=== PATIENT | female | born 1945 | race Caucasian/White ===

== ENCOUNTER 2017-08-31 09:13 | Outpatient (CLI) | payer MEDICARE ==
--- NOTE | 2017-08-31 13:12 | CT ---
CT CHEST AND ABDOMEN AND PELVIS WITH CONTRAST: HISTORY: Stage IV metastatic breast cancer. Post chemo and radiation over one year ago. Exam was performed for followup. COMPARISON: Outside CT from [place], dated 11/17/2016. TECHNIQUE: Multiple axial tomograms were obtained through the chest, abdomen, and pelvis with IV enhancement an d oral contrast. FINDINGS: CHEST: Apparently calcified granuloma in the left anterior lung, measuring in the 3 to 4 mm range, is stable. There is also a tiny calcified granuloma, measuring 3 mm, in the right lung base, which is stable. There continues to be moderate sized right pleural effusion, some of which appears mildly loculated. This is unchanged in appearance. There is some associated with basilar atelectasis. There is a m ass like area of lung parenchyma adjacent to this pleural fluid, which measures up to 4 cm in diamet er. This is unchanged and most likely represents a focal area of rounded atelectasis. There is ass ociated stranding in the right lung base, which is stable. The sclerotic lesion in the sternum is unchanged in size and appearance. The soft tissue mass in the left breast is also unchanged in size and appearance. No evidence of ax illary adenopathy. No evidence of mediastinal adenopathy. There is a right Mediport type catheter, which appears in adequate position. ABDOMEN AND PELVIS: The liver, spleen, and pancreas appear unremarkable. There continues to be sue dence of several peripherally calcified gallstones seen in a mildly contracted gallbladder, which is unchanged in appearance. The adrenal glands are normal. The right kidney is somewhat ectopic with inferior position. The right kidney also shows pelvocalie ctasis, which is previously described. This does appear stable. The right ureter is of normal evelina cindy. The left kidney also shows evidence of mild hydronephrosis involving the left renal pelvis. This is also a stable finding. The left ureter is normal. The urinary bladder is mildly contracted and is unremarkable. There is thinning of the right renal cortex, which is stable. The aorta shows atherosclerotic change. Normal caliber. No adenopathy identified. Bowel loops are unremarkable. Bone windows again show a subtle sclerotic lesion in the right femoral neck, which was described pre viously. This is stable. Deformity of the superior endplate of L3 with some sclerosis at the left aspect of this vertebral body is stable. This may be due to endplate deformity rather than metastat ic disease. A tiny focal sclerotic lesion in the L4 vertebra is stable, as is a tiny focus of scler osis in the mid sacrum. Images through the pelvis show an unremarkable appearing uterus and adnexa. IMPRESSION: 1. Moderate right pleural effusion with some suggestion of loculation is again seen and is essential ly unchanged. There is a mass like area of parenchymal opacity in the right lung base which is unch anged in size and probably represents focal rounded atelectasis. 2. Fatty granuloma are unchanged. 3. Sclerotic lesion in the sternum, consistent with bony metastasis, is unchanged. 4. Left breast mass, density is unchanged. 5. Cholelithiasis again noted. 6. Both kidneys again show pelvocaliectasis with suggestion of mild ureteropelvic junction obstruct ion bilaterally. There is mild ectopia of the right kidney. These renal findings are stable. 7. Scattered sclerotic lesions in the osseous structures, as described above, are stable. Prominen t degenerative changes at the right hip again noted. 8. No evidence of significant interval change. POS: ROBER
[2017-08-31] MEDS ORDERED: Iopamidol 370 76% 100 ML VIAL ONE (14:39)
== END 2017-08-31 09:14 | disposition home or self-care (01) ==
LOC: CT 09:13
PROVIDERS: ATTEND Internal Medicine Hematology & Oncology
DX: C50.412 Malignant neoplasm of upper-outer quadrant of left female breast (principal); E03.8 Other specified hypothyroidism; J90 Pleural effusion, not elsewhere classified; N63.20 Unspecified lump in the left breast, unspecified quadrant; K80.20 Calculus of gallbladder without cholecystitis without obstruction; N13.30 Unspecified hydronephrosis; Q63.2 Ectopic kidney; M89.28 Other disorders of bone development and growth, other site
CPT/HCPCS: 71260; 74177

== ENCOUNTER 2018-01-18 07:30 | Outpatient (CLI) | payer MEDICARE ==
--- NOTE | 2018-01-18 11:49 | CT ---
CT OF CHEST AND ABDOMEN AND PELVIS PERFORMED WITHOUT CONTRAST ENHANCEMENT: Date: 01/18/18 HISTORY: Breast cancer. Follow-up. COMPARISON: 08/31/17 study, as well as an 09/29/15 exam. FINDINGS: There has been development of some parenchymal changes within the lingula, which could represent mike y infiltrate. These are new as compared to the prior exam. There is an area of mass-like consolidatio n measuring 4.2 cm in size in the right lower lobe. This is stable as compared to the most recent 201 7 study. It could represent an area of rounded atelectasis. There is moderate right pleural effusion which is felt to be stable. Small, subcentimeter, mediastinal nodes are unremarkable. Hilar regions are difficult to assess due t o lack of contrast. Fairly extensive coronary artery calcifications are seen. CT of abdomen was performed without contrast enhancement. Gallstones are noted. The liver, spleen, an d pancreas regions appear unremarkable. Right and left adrenal glands are normal in appearance. The right kidney once again has an unusual mo re vertical orientation. There is dilatation to both collecting systems. In reviewing the 2015 study, the dilatation, particularly on the right side, appears more prominent, and there is some increasing cortical thinning. Changes are probably related to UPJ type obstructions. The ureters are nondilated . There is no significant periaortic or mesenteric adenopathy. CT of pelvis was performed without contrast enhancement. There is no evidence of any significant germain opathy, mass, or free fluid. Review of osseous structures shows some sclerotic bony change within the sternum, similar to the prev ious examination. Also, a sclerotic area within the right hip and intertrochanteric region, as well a s a stable appearance of what appears to be a sclerotic appearing area involving the L3 vertebral bod y with what appears to almost be Schmorl's node type changes involving the superior end plate. A smal l sclerotic focus at the L5 vertebral body is also stable. No new lesions are seen. Marked arthritic changes of the right hip are present. IMPRESSION: 1. Stable area of mass-like consolidation of the right lower lobe with associated effusion. This cou ld represent rounded atelectasis. 2. Development of some parenchymal change within the left upper lobe and left mid lung field in the lingular region. This could represent some atelectasis or some minimal infiltrate. It is new as manuel red to the prior study. 3. Findings suggest bilateral UPJ type obstruction with prominent collecting system bilaterally. The changes on the right appear more pronounced, particularly when comparing to the 2015 study, with sang e increased cortical thinning. 4. Stable bony changes. 5. Gallstones. POS: ROBER
== END 2018-01-18 07:31 | disposition home or self-care (01) ==
LOC: CT 07:30
PROVIDERS: ATTEND Internal Medicine Hematology & Oncology
DX: C50.919 Malignant neoplasm of unspecified site of unspecified female breast (principal); C78.01 Secondary malignant neoplasm of right lung; C79.51 Secondary malignant neoplasm of bone; R91.8 Other nonspecific abnormal finding of lung field; K80.80 Other cholelithiasis without obstruction
CPT/HCPCS: 71250; 74177; 82565

== ENCOUNTER 2018-08-15 08:43 | Outpatient (CLI) | payer MEDICARE ==
--- NOTE | 2018-08-15 10:55 | CT ---
CT OF CHEST PERFORMED WITHOUT CONTRAST ENHANCEMENT CT OF ABDOMEN AND PELVIS PERFORMED WITHOUT CONTRAST ENHANCEMENT: History: Left breast cancer. Follow up. Comparison: 01-18-18 FINDINGS: No IV contrast was used due to patient's low GFR. There is a persistent rounded area of mass like consolidation seen in the right lower lobe with assoc iated effusion. These changes appear stable. The left upper lobe parenchymal changes noted on the prior examination have resolved. No significant mediastinal, hilar, or axillary adenopathy is appreciated. Stable changes of the left breast are present. CT OF ABDOMEN PERFORMED WITHOUT CONTRAST ENHANCEMENT: Scan detail is limited due to body habitus and lack of contrast. The liver, spleen, and pancreas shira ons are unremarkable. Gallstones are again noted. Right and left adrenal glands are normal in appearance. The dilatation to the collecting systems and malrotation of the right kidney all appear stable. No significant periaortic or mesenteric adenopathy is appreciated. There is eventration to the anterior abdominal wall which is similar to the prior ex am. CT OF PELVIS PERFORMED WITHOUT CONTRAST ENHANCEMENT: No adenopathy, mass, or free fluid. Review of osseous structures once again shows sclerotic changes in the right hip and intertrochanteri c region, as well as changes in the sternum and small sclerotic focus at L5 level. IMPRESSION: 1. Stable area of mass-like consolidation of the right lower lobe with associated atelectasis. 2. Cholelithiasis. 3. Resolution of left upper lobe parenchymal change since the prior exam. 4. Stable appearance to the bilateral collecting system dilatation. 5. Stable sclerotic densities seen within the skeletal system. 6. Cholelithasis. POS: ROBER
== END 2018-08-15 08:44 | disposition home or self-care (01) ==
LOC: CT 08:43
PROVIDERS: ATTEND Internal Medicine Hematology & Oncology
DX: C79.51 Secondary malignant neoplasm of bone (principal); C78.01 Secondary malignant neoplasm of right lung; C50.412 Malignant neoplasm of upper-outer quadrant of left female breast; K80.20 Calculus of gallbladder without cholecystitis without obstruction; N28.89 Other specified disorders of kidney and ureter; M89.9 Disorder of bone, unspecified
CPT/HCPCS: 71250; 74177; 82565

== ENCOUNTER 2019-08-24 21:16 | Inpatient (IN) | payer MEDICARE ==
[~2019-08-24 21:16] MED LIST: ISOVUE-370 76%-LOCM 1 ML ONE
--- NOTE | 2019-08-24 21:50 | RAD ---
EXAM: Single view of the chest HISTORY: Shortness of breath COMPARISON: 01/13/2009 FINDINGS: Single view of the chest shows an enlarged cardiomediastinal silhouette. There appears to be a right-sided Mediport with its tip in the superior vena cava. Opacity is seen in the left lung base consistent with an infiltrate and/or adjacent pleural effusion. The bones are unremarkable. IMPRESSION: Left lower lobe infiltrate.
[2019-08-24 21:53] LABS: #Eosinphils 0.3 thou/uL (0.0-0.7); #Lymphocytes 1.9 thou/uL (1.20-3.40); #Monocytes 0.8 thou/uL (0.11-0.59); %Basophils 0.2 % (0.0-1.0); %Eosinophils 2.6 % (0.0-10.0); %Lymphocytes 18.6 % (21.0-51.0); %Monocytes 8.3 % (0.0-10.0); %Neutrophils 70.2 % (42.0-75.0); Hemoglobin 11.7 g/dL (12.0-16.0); Mean Corpuscular HGB CONC 30.6 g/dL (32.0-36.0); Mean Corpuscular Hemoglobin 24.9 pg (27.0-31.0); Mean Corpuscular Volume 81.3 fL (78.0-98.0); Mean Platelet Volume 7.2 fL (7.4-10.4); Platelet Count 314 thou/uL (130-400); RBC Distribution Width 17.9 % (11.5-14.5); Red Blood Cell (RBC) Count 4.71 mill/uL (4.20-5.40)
[2019-08-24 22:18] LABS: ALT (SGPT) 8 U/L (8-55); AST (SGOT) 19 U/L (5-34); Albumin 3.9 g/dL (3.4-4.8); Alkaline Phosphatase 87 U/L (40-110); Anion Gap 15 mmol/L (10-20); BUN (Urea Nitrogen) 19 mg/dL (9.8-20.1); Calc. Creatinine Clearance 0 mL/min (70-130); Calcium 9.4 mg/dL (7.8-10.44); Carbon Dioxide 23 mmol/L (23-31); Chloride 103 mmol/L (98-107); Estimated GFR-MDRD 31; Globulin 5.1 g/dL (2.4-3.5); Glucose 130 mg/dL (83-110); Magnesium 2.2 mg/dL (1.6-2.6); Potassium 4.1 mmol/L (3.5-5.1); Sodium 137 mmol/L (136-145)
--- NOTE | 2019-08-24 23:16 | CT ---
EXAM: CTA of the chest HISTORY: Shortness of breath that is been worsening over the last few days COMPARISON: None TECHNIQUE: Multiple contiguous axial images were obtained a CTA of the chest with contrast per pulmon ray embolism protocol. 3-D oblique MIP reformats and direct coronal reformats were performed. FINDINGS: HEART: Enlarged in size without focal cardiac abnormality. Callus cages are seen in the coronary levy britta. PULMONARY ARTERIES: Normal in caliber without filling defects to suggest pulmonary emboli. MEDIASTINUM: No hilar or mediastinal lymphadenopathy. There is a Mediport with its tip in the superio r vena cava. LUNGS: 1.2 cm area of nodularity in the left hilar region adjacent to the major fissure may represent fluid within the fissure. Bilateral atelectasis. PLEURAL SPACE: Small bilateral pleural effusions. No pneumothorax. CHEST WALL SOFT TISSUES: Unremarkable VISUALIZED OSSEOUS STRUCTURES: Degenerative changes in the spine. VISUALIZED SUBDIAPHRAGMATIC STRUCTURES: Unremarkable. There is elevation of the left hemidiaphragm. IMPRESSION: 1. No evidence of pulmonary thromboembolism 2. Small bilateral pleural effusions with adjacent atelectasis
[2019-08-24 23:38] LABS: Bilirubin Negative (Negative); Blood, Urine Large (Negative); Glucose, Urine (Dipstick) Negative (Negative); Leukocyte Large (Negative); Nitrite Positive (Negative); Protein, Urine (Dipstick) 100 mg/dL (Neg-Trace); Urobilinogen 0.2 mg/dL (Less than 2)
[2019-08-24 23:40] LABS: Clarity Cloudy (Clear)
[2019-08-24 23:42] LABS: Bacteria/HPF 3+ HPF (None Seen); Mucous/LPF None Seen LPF (<2+); Oval Fat Bodies/HPF None Seen HPF (None Seen); Renal Epithelial None Seen HPF (None Seen); Sperm/HPF None Seen HPF (None Seen); Squamous Epithelial None Seen HPF (0-3); Transitional Epithelial None Seen HPF (None Seen); Trichomonas/HPF None Seen HPF (None Seen); Yeast-Budding None Seen HPF (None Seen); Yeast-Hyphae None Seen HPF (None Seen)
[2019-08-24 23:43] LABS: Other Microscopic Description Less than 2 mL rec'd
[2019-08-24] MEDS ORDERED: Furosemide 40 MG/4 ML VIAL ONE (23:49)
[2019-08-25] MEDS ORDERED: Senokot S 8.6-50 MG TAB PO PRN (01:16)
[2019-08-25] MEDS ORDERED: Acetaminophen 325 MG TAB PO PRN (01:16)
[2019-08-25 02:13] LABS: Troponin I Less than 0.010 ng/mL (< 0.028)
--- NOTE | 2019-08-25 04:51 | HP ---
CHIEF COMPLAINT: Shortness of breath. HISTORY OF PRESENT ILLNESS: The patient is a very pleasant 73-year-old female with a history of stage IV breast cancer, who has been under radiation chemotherapy and is currently on oral cancer medications, who presents to the hospital with complaints of shortness of breath for the past couple of days. The patient states that she normally at baseline has limited mobility; however, has noticed significant increase of shortness of breath even with minimal exertion. She states that she felt that she was wheezing. She did follow up with her oncologist recently; however, was told that her lungs were clear. She denies any chest pain or chest tightness, any nausea, vomiting, or diarrhea. She denies any orthopnea or PND. She normally sleeps on 2 pillows. However, she has noticed some worsening lower extremity swelling. PAST MEDICAL HISTORY: She has a history of breast cancer, stage IV, status post chemoradiation and is currently on oral medication. Diabetes, however, not anymore. Hypertension, hypercholesteremia and hypothyroidism. She also had atrial fibrillation. She was under the care of instrument repairer steam plant and was put on sotalol and a blood thinner initially; however, has been taken off the blood thinner and continues to be on aspirin and sotalol. PAST SURGICAL HISTORY: She denies any surgical history. SOCIAL HISTORY: She denies any alcohol use, drug use, or smoking history. She is a full code. Lives alone. ALLERGIES: SHE IS ALLERGIC TO PENICILLIN. MEDICATIONS: 1. Aspirin 81 mg daily. 2. Amlodipine 10 mg daily. 3. Levothyroxine 175 mg daily. 4. Sotalol 80 mg twice a day. 5. Escitalopram 10 mg p.o. daily. FAMILY HISTORY: No history of heart disease or cancer. PHYSICAL EXAMINATION: VITAL SIGNS: Temperature of 98.0. Her oxygenation was 83% on room air. Pulse was 86, blood pressure 214/100 initially when she came in and then it went down to 168/81. GENERAL: She is awake, alert, and oriented x3. Does not appear in any distress. HEENT: Normocephalic, atraumatic. No lymphadenopathy noted. Pupils are equal and reactive to light. CV: S1 and S2 present. No murmurs, rubs, or gallops. LUNGS: Clear to auscultation. No rhonchi or wheezes noted. ABDOMEN: Obese. Bowel sounds present x2. EXTREMITIES: She does have lower extremity +1 to +2 pitting edema. NEUROVASCULAR: No focal deficits noted. SKIN: No cuts, lesions, or bruises noted. LABORATORY RESULTS: Are as of the following; her WBCs of 10.0, hemoglobin of 11.7, hematocrit of 38.3, platelets of 314. Chemistry; sodium of 137, potassium of 4.1, BUN of 19, creatinine 1.63. Her BNP actually was only 132. Troponin x1 was negative. She did have a CTA, which did not indicate any PE, did not indicate any pneumonia; however, her chest x-ray did. Again, I cannot open any of these records because of the issues with our computers today. ASSESSMENT AND PLAN: The patient is a 73-year-old female, who presents to the hospital with complaints of shortness of breath. 1. Shortness of breath. This could be secondary to congestive heart failure; however, she has never been diagnosed with that. I will get an echocardiogram. Her blood pressure was high. This could be diastolic versus systolic. I will also start her on some IV Lasix. Her BNP is only 132. This could be inaccurate secondary to her being obese. I will also put her on antibiotics just to be on the safer side; however, I do not think she has an infection. We will start her on DuoNeb. She is on oxygen about 2 to 3 L. We will continue that. 2. History of breast cancer. We will continue her home medication. 3. History of hypertension. Again, I will continue her home medications. She might need titration of some of her medications. 4. Hypothyroidism. We will check a TSH and continue to monitor. 5. Deep venous thrombosis prophylaxis. We will put the patient on some subcu heparin. Job ID: [id number]
[2019-08-25 04:54] LABS: #Eosinphils 0.2 thou/uL (0.0-0.7); #Lymphocytes 2.1 thou/uL (1.20-3.40); #Monocytes 0.8 thou/uL (0.11-0.59); #Neutrophils 6.9 thou/uL (1.40-6.50); %Basophils 0.3 % (0.0-1.0); %Eosinophils 1.5 % (0.0-10.0); %Monocytes 8.2 % (0.0-10.0); Hemoglobin 11.2 g/dL (12.0-16.0); Mean Corpuscular HGB CONC 30.3 g/dL (32.0-36.0); Mean Corpuscular Hemoglobin 24.8 pg (27.0-31.0); Mean Corpuscular Volume 81.9 fL (78.0-98.0); Mean Platelet Volume 6.8 fL (7.4-10.4); Platelet Count 307 thou/uL (130-400); RBC Distribution Width 17.5 % (11.5-14.5); Red Blood Cell (RBC) Count 4.53 mill/uL (4.20-5.40)
[2019-08-25 05:17] LABS: Anion Gap 15 mmol/L (10-20); BUN (Urea Nitrogen) 20 mg/dL (9.8-20.1); Calc. Creatinine Clearance 83 mL/min (70-130); Calcium 9.3 mg/dL (7.8-10.44); Carbon Dioxide 28 mmol/L (23-31); Chloride 101 mmol/L (98-107); Estimated GFR-MDRD 29; Glucose 121 mg/dL (83-110); Sodium 140 mmol/L (136-145)
[2019-08-25] MEDS: Levothyroxine Sodium 100 MCG TAB PO SCH (06:17)
[2019-08-25] MEDS ORDERED: Amlodipine 10 MG TAB PO SCH (09:00)
[2019-08-25] MEDS: Sotalol HCl 80 MG TAB PO SCH ×2 (09:03→21:27)
[2019-08-25] MEDS: Enoxaparin Sodium 40 MG/0.4 ML SYRINGE SC SCH (09:04)
[2019-08-25] MEDS: Amlodipine 10 MG TAB PO SCH (09:04)
[2019-08-25] MEDS: Saccharomyces boulardii 250 MG CAP PO SCH (09:04)
[2019-08-25] MEDS: Aspirin 325 mg Enteric Coated Tablet PO SCH (09:04)
[2019-08-25] MEDS: Escitalopram Oxalate 10 mg Tablet PO SCH (09:05)
[2019-08-25] MEDS: Furosemide 40 MG/4 ML VIAL SLOW IVP SCH (09:05)
[2019-08-25] MEDS: Mometasone Furoate 30 PUFF 220 MCG INH SCH (19:03)
[2019-08-25] MEDS ORDERED: FLU VACC TS2019-20(65YR UP)/PF 180 MCG/0.5 ML SYRINGE IM ONE (21:00)
[2019-08-25] MEDS ORDERED: Prevnar 13-Val Conj/PF 0.5 ML SYRINGE IM ONE (21:00)
[2019-08-26 05:48] LABS: #Eosinphils 0.2 thou/uL (0.0-0.7); #Lymphocytes 1.8 thou/uL (1.20-3.40); #Monocytes 0.9 thou/uL (0.11-0.59); #Neutrophils 5.5 thou/uL (1.40-6.50); %Basophils 0.1 % (0.0-1.0); %Eosinophils 1.8 % (0.0-10.0); %Lymphocytes 21.6 % (21.0-51.0); %Monocytes 10.3 % (0.0-10.0); %Neutrophils 66.2 % (42.0-75.0); Hemoglobin 10.3 g/dL (12.0-16.0); Mean Corpuscular Volume 80.7 fL (78.0-98.0); Mean Platelet Volume 7.1 fL (7.4-10.4); Platelet Count 251 thou/uL (130-400); RBC Distribution Width 17.3 % (11.5-14.5); Red Blood Cell (RBC) Count 4.11 mill/uL (4.20-5.40); White Blood Cell (WBC) Count 8.3 thou/uL (4.8-10.8)
[2019-08-26] MEDS: Levothyroxine Sodium 100 MCG TAB PO SCH (06:10)
[2019-08-26 06:12] LABS: Anion Gap 12 mmol/L (10-20); BUN (Urea Nitrogen) 23 mg/dL (9.8-20.1); Calc. Creatinine Clearance 85 mL/min (70-130); Calcium 8.9 mg/dL (7.8-10.44); Carbon Dioxide 30 mmol/L (23-31); Chloride 99 mmol/L (98-107); Estimated GFR-MDRD 30; Glucose 91 mg/dL (83-110); Magnesium 2.1 mg/dL (1.6-2.6); Potassium 3.7 mmol/L (3.5-5.1); Sodium 137 mmol/L (136-145)
[2019-08-26] MEDS: Sotalol HCl 80 MG TAB PO SCH ×2 (08:40→22:24)
[2019-08-26] MEDS: Aspirin 325 mg Enteric Coated Tablet PO SCH (08:40)
[2019-08-26] MEDS: Saccharomyces boulardii 250 MG CAP PO SCH (08:41)
[2019-08-26] MEDS: Furosemide 40 MG/4 ML VIAL SLOW IVP SCH (08:41)
[2019-08-26] MEDS: Enoxaparin Sodium 40 MG/0.4 ML SYRINGE SC SCH (08:41)
[2019-08-26] MEDS: Amlodipine 10 MG TAB PO SCH (08:41)
[2019-08-26] MEDS: Escitalopram Oxalate 10 mg Tablet PO SCH (08:41)
--- NOTE | 2019-08-26 16:58 | PDOC.HOSPP ---
- Subjective Encounter Date: 08/26/19 Encounter Time: 16:57 Subjective: Patient seen and examined for SOB. Feeling better. SOB improving. Some dry cough. No fever. No other complaints. No overnight events - Objective Vital Signs & Weight: Vital Signs (12 hours) Temp Pulse Pulse Pulse Resp BP BP 08/26/19 16:00 97.9 F 67 16 08/26/19 13:19 70 16 08/26/19 11:25 97.6 F 64 14 08/26/19 10:06 70 78 117/87 08/26/19 08:41 71 165/77 H 08/26/19 08:40 71 165/77 H 08/26/19 08:00 08/26/19 07:43 97.7 F 71 18 08/26/19 07:10 08/26/19 07:09 65 16 BP BP Pulse Ox 08/26/19 16:00 134/61 93 L 08/26/19 13:19 97 08/26/19 11:25 149/70 H 97 08/26/19 10:06 146/75 H 08/26/19 08:41 08/26/19 08:40 08/26/19 08:00 96 08/26/19 07:43 165/77 H 93 L 08/26/19 07:10 98 08/26/19 07:09 98 Weight Admit Weight 383 lb 3.2 oz Weight 381 lb 6.4 oz I&O: 08/25/19 08/26/19 08/27/19 06:59 06:59 06:59 Intake Total 120 961 Output Total 700 2700 Balance -565 -1651 Result Diagrams: 08/26/19 05:25 08/26/19 05:25 Radiology Reviewed by me: Yes (CTA - CHF, No Pneumonia) EKG Reviewed by me: Yes (Tele SR) Hospitalist ROS - Review of Systems Constitutional: denies: fever, chills, sweats, weakness, malaise, other Cardiovascular: reports: orthopnea, edema. denies: chest pain, palpitations, paroxysmal noc. dyspnea, light headedness, other Gastrointestinal: denies: nausea, vomiting, abdominal pain, diarrhea, constipation, melena, hematochezia, other - Medication Medications: Active Medications Generic Name Dose Route Start Last Admin Trade Name Freq PRN Reason Stop Dose Admin Albuterol/Ipratropium 3 ml 08/25/19 07:00 08/26/19 13:19 Duoneb NEB 3 ml [id number] LIAM Administration Amlodipine Besylate 10 mg 08/25/19 09:00 08/26/19 08:41 Norvasc PO 10 mg DAILY LIAM Administration Aspirin 325 mg 08/25/19 09:00 08/26/19 08:40 Ecotrin PO 325 mg DAILY LIAM Administration Enoxaparin Sodium 40 mg 08/25/19 09:00 08/26/19 08:41 Lovenox SC 40 mg 0900 LIAM Administration Escitalopram Oxalate 10 mg 08/25/19 09:00 08/26/19 08:41 Lexapro PO 10 mg DAILY LIAM Administration Furosemide 40 mg 08/25/19 09:00 08/26/19 08:41 Lasix SLOW IVP 40 mg DAILY LIAM Administration Levothyroxine Sodium 200 mcg 08/25/19 06:00 08/26/19 06:10 Synthroid PO 200 mcg 0600 LIAM Administration Mometasone Furoate 1 puff 08/25/19 18:30 08/25/19 19:03 Asmanex INH 1 puff 1830 LIAM Administration Saccharomyces Boulardii 250 mg 08/25/19 09:00 08/26/19 08:41 Florastor PO 250 mg DAILY LIAM Administration Sotalol HCl 80 mg 08/25/19 09:00 08/26/19 08:40 Betapace PO 80 mg BID LIAM Administration - Exam General Appearance: NAD Neck: supple, no JVD Heart: RRR, no gallops, no rubs Heart - other findings: no heaves/pulsations Respiratory: no wheezes, normal chest expansion, rales, rhonchi Gastrointestinal: soft, non-tender, non-distended, normal bowel sounds Extremities: no cyanosis, no clubbing, 2+ LE edema Neurological: no new deficit Psychiatric: normal affect, A&O x 3 Hosp A/P - Plan plan discussed w/ family, PT/OT, social work lecturer, incentive spirometry, DVT proph w/lovenox Acute hypoxic Resp failure due to Acute on chronic diastolic HF exacerbation ( Pneumonia less likely) h/o Breast CA CKD 3 Morbid Obesity BMI 63 Hypothyroidism PLAN: Cont IV Lasix DC Levaquin Await Echo Await Cardio input Rehab vs SNF Eval AM labs Cont Fluid restriction At Potassium supp Counselled on CHF
[2019-08-26] MEDS: Mometasone Furoate 30 PUFF 220 MCG INH SCH (18:31)
[2019-08-26] MEDS: Potassium Chloride 10 MEQ TAB PO SCH (22:24)
--- NOTE | 2019-08-27 00:30 | CON ---
DATE OF CONSULTATION: HISTORY OF PRESENT ILLNESS: Ms. Chakraborty is a 73-year-old white female whom I have followed in the distant past. In January 2009, she awoke with a funny feeling in her chest. She went to see her primary physician, was found to be in atrial fibrillation with fast ventricular response and was sent to the hospital. She denied any chest discomfort or shortness of breath. She was given Lovenox. Echo revealed ejection fraction of 50% to 55%. She was placed on Sotalol and underwent electrical cardioversion, converted to sinus rhythm with 200 joules. She also had been placed on Coumadin. In November,, she had a negative cardiolite. She was followed for a while in the office, although the last time she was seen was April 2015. She now presents complaining of increased shortness of breath over the last month. Over the last 3 weeks, she has noted peripheral edema. She chronically sleeps sitting up in a chair. She denies any chest discomfort. She came to the emergency room and chest x-ray revealed left lower lobe infiltrate. Chest CTA revealed no evidence of pulmonary thromboembolism. She had small bilateral effusions with adjacent atelectasis. She began intravenous diuretics and has diuresed 1900 mL. She states her breathing has improved. PAST MEDICAL HISTORY: Breast cancer, stage IV, status post chemo/radiation, diabetes, hypertension, hypercholesterolemia, hypothyroidism, and atrial fibrillation. MEDICATIONS: 1. Sotalol 80 mg b.i.d. 2. Levothyroxine 200 mcg daily. 3. Letrozole 2.5 daily. 4. Amlodipine 10 mg daily. 5. Aspirin 325 daily. 6. Lexapro 10 mg daily. 7. Flovent at bedtime. ALLERGIES: PENICILLIN. SOCIAL HISTORY: She is with two children. She does not use tobacco. She occasionally drinks alcohol. REVIEW OF SYSTEMS: Otherwise unremarkable. PHYSICAL EXAMINATION: VITAL SIGNS: Blood pressure 134/61, pulse 67. HEENT: PERRL. NECK: Supple. CHEST: Reveals crackles at the bases. CARDIOVASCULAR: S1, S2 normal without any S3, S4, or murmurs. ABDOMEN: Normal bowel sounds without tenderness or organomegaly. The abdomen is morbidly obese. EXTREMITIES: Reveal 1+ pretibial edema. NEUROLOGICAL: Grossly intact. SKIN: Warm and dry. LABORATORY DATA: EKG reveals normal sinus rhythm with LVH by voltage criteria, poor R-wave progression. Hemoglobin 10.3, hematocrit 33.2, white count 8300, platelets 251,000. D-dimer 5.99. Sodium 137, potassium 3.7, chloride 99, carbon dioxide 30, BUN 23, creatinine 1.66. TSH 17.0795. BNP 132.8. Cardiac enzymes are unremarkable. Echocardiogram revealed study be technically difficult. There was normal left ventricular function with ejection fraction of 50% to 55%. There was evidence for diastolic dysfunction. Mild mitral regurgitation and mild tricuspid regurgitation. IMPRESSION: 1. Acute on chronic diastolic heart failure. 2. History of atrial fibrillation in 2008 which was electrically cardioverted to normal sinus rhythm. She has not had a documented recurrence of atrial fibrillation. 3. Hypertension. 4. Morbidly obese. 5. Hypothyroidism. 6. History of stage IV breast cancer. PLAN: The patient continue to be diuresed and continue on the sotalol. We will follow the patient with you. Job ID: [id number] MTDD
[2019-08-27 05:23] LABS: Anion Gap 11 mmol/L (10-20); BUN (Urea Nitrogen) 27 mg/dL (9.8-20.1); Calc. Creatinine Clearance 72 mL/min (70-130); Calcium 8.6 mg/dL (7.8-10.44); Carbon Dioxide 33 mmol/L (23-31); Chloride 99 mmol/L (98-107); Estimated GFR-MDRD 25; Glucose 105 mg/dL (83-110); Magnesium 2.1 mg/dL (1.6-2.6); Potassium 3.7 mmol/L (3.5-5.1); Sodium 139 mmol/L (136-145)
[2019-08-27] MEDS: Levothyroxine Sodium 100 MCG TAB PO SCH (05:29)
[2019-08-27] MEDS: Potassium Chloride 10 MEQ TAB PO SCH ×2 (07:34→17:28)
[2019-08-27] MEDS: Sotalol HCl 80 MG TAB PO SCH ×2 (08:55→21:29)
[2019-08-27] MEDS: Aspirin 325 mg Enteric Coated Tablet PO SCH (08:55)
[2019-08-27] MEDS: Saccharomyces boulardii 250 MG CAP PO SCH (08:55)
[2019-08-27] MEDS: Amlodipine 10 MG TAB PO SCH (08:55)
[2019-08-27] MEDS: Escitalopram Oxalate 10 mg Tablet PO SCH (08:56)
[2019-08-27] MEDS: Enoxaparin Sodium 40 MG/0.4 ML SYRINGE SC SCH (08:56)
[2019-08-27] MEDS: Furosemide 40 MG/4 ML VIAL SLOW IVP SCH (08:56)
--- NOTE | 2019-08-27 18:39 | PDOC.HOSPP ---
- Subjective Encounter Date: 08/27/19 Encounter Time: 08:40 Subjective: Pt seen for followup re: acute hypoxic respiratory failure. States she feels slightly better than yesterday. Ambulated to bathroom and with therapist. - Objective Vital Signs & Weight: Vital Signs (12 hours) Temp Pulse Resp BP BP Pulse Ox 08/27/19 16:22 97.7 F 64 16 143/65 H 97 08/27/19 13:21 62 16 99 08/27/19 12:06 97.8 F 62 16 124/60 95 08/27/19 08:55 65 178/84 H 08/27/19 07:30 97 08/27/19 07:28 65 16 97 08/27/19 07:23 97.8 F 65 22 H 140/67 97 Weight Admit Weight 383 lb 3.2 oz Weight 379 lb 9.6 oz I&O: 08/26/19 08/27/19 08/28/19 06:59 06:59 06:59 Intake Total 961 360 Output Total 2700 2550 Balance -1739 2197 Result Diagrams: 08/26/19 05:25 08/27/19 04:53 Additional Labs: Labs and MARs reviewed by me EKG Reviewed by me: Yes (Tele: NSR) Hospitalist ROS - Review of Systems Respiratory: reports: cough, dry, SOB with excertion. denies: shortness of breath, hemoptysis, pleuritic pain, sputum, wheezing Cardiovascular: reports: orthopnea. denies: chest pain, palpitations, paroxysmal noc. dyspnea, edema, light headedness - Medication Medications: Active Medications Generic Name Dose Route Start Last Admin Trade Name Prietoq PRN Reason Stop Dose Admin Albuterol/Ipratropium 3 ml 08/25/19 07:00 08/27/19 13:21 Duoneb NEB 3 ml [id number] LIAM Administration Amlodipine Besylate 10 mg 08/25/19 09:00 08/27/19 08:55 Norvasc PO 10 mg DAILY LIAM Administration Aspirin 325 mg 08/25/19 09:00 08/27/19 08:55 Ecotrin PO 325 mg DAILY LIAM Administration Enoxaparin Sodium 40 mg 08/25/19 09:00 08/27/19 08:56 Lovenox SC 40 mg 0900 LIAM Administration Escitalopram Oxalate 10 mg 08/25/19 09:00 08/27/19 08:56 Lexapro PO 10 mg DAILY LIAM Administration Furosemide 40 mg 08/25/19 09:00 08/27/19 08:56 Lasix SLOW IVP 40 mg DAILY LIAM Administration Levothyroxine Sodium 200 mcg 08/25/19 06:00 08/27/19 05:29 Synthroid PO 200 mcg 0600 LIAM Administration Mometasone Furoate 1 puff 08/25/19 18:30 08/26/19 18:31 Asmanex INH 1 puff 1830 LIAM Administration Potassium Chloride 10 meq 08/26/19 17:00 08/27/19 17:28 Klor-Con 10 PO 10 meq BID-WM LIAM Administration Saccharomyces Boulardii 250 mg 08/25/19 09:00 08/27/19 08:55 Florastor PO 250 mg DAILY LIAM Administration Sotalol HCl 80 mg 08/25/19 09:00 08/27/19 08:55 Betapace PO 80 mg BID LIAM Administration - Exam General - other findings: Morbid obesity Eye: anicteric sclera ENT: moist mucosa Neck: supple, symmetric Heart: RRR, no rubs Respiratory - other findings: Bibasal crackles Gastrointestinal: soft, non-tender Extremities: 2+ LE edema Skin: no rashes Musculoskeletal: no muscle wasting Psychiatric: normal affect, normal behavior Hosp A/P (1) Acute respiratory failure with hypoxia Code(s): J96.01 - ACUTE RESPIRATORY FAILURE WITH HYPOXIA Status: Acute (2) Acute on chronic diastolic CHF (congestive heart failure), NYHA class 3 Code(s): I50.33 - ACUTE ON CHRONIC DIASTOLIC (CONGESTIVE) HEART FAILURE Status : Acute (3) Morbid obesity Code(s): E66.01 - MORBID (SEVERE) OBESITY DUE TO EXCESS CALORIES Status: Chronic (4) Hypothyroidism Code(s): E03.9 - HYPOTHYROIDISM, UNSPECIFIED Status: Chronic - Plan plan discussed w/ family, PT/OT, out of bed/ambulate Continue diuretics. SNU vs Rehab. Continue synthroid.
[2019-08-27] MEDS: Mometasone Furoate 30 PUFF 220 MCG INH SCH (18:50)
[2019-08-28] MEDS: Levothyroxine Sodium 100 MCG TAB PO SCH (06:03)
[2019-08-28 06:23] LABS: Anion Gap 12 mmol/L (10-20); BUN (Urea Nitrogen) 28 mg/dL (9.8-20.1); Calc. Creatinine Clearance 80 mL/min (70-130); Calcium 8.7 mg/dL (7.8-10.44); Carbon Dioxide 33 mmol/L (23-31); Chloride 99 mmol/L (98-107); Estimated GFR-MDRD 29; Glucose 94 mg/dL (83-110); Potassium 3.7 mmol/L (3.5-5.1); Sodium 140 mmol/L (136-145)
[2019-08-28] MEDS: Enoxaparin Sodium 40 MG/0.4 ML SYRINGE SC SCH (08:49)
[2019-08-28] MEDS: Amlodipine 10 MG TAB PO SCH (08:50)
[2019-08-28] MEDS: Escitalopram Oxalate 10 mg Tablet PO SCH (08:50)
[2019-08-28] MEDS: Potassium Chloride 10 MEQ TAB PO SCH ×2 (08:50→16:38)
[2019-08-28] MEDS: Aspirin 325 mg Enteric Coated Tablet PO SCH (08:52)
[2019-08-28] MEDS: Saccharomyces boulardii 250 MG CAP PO SCH (08:52)
[2019-08-28] MEDS: Sotalol HCl 80 MG TAB PO SCH ×2 (08:52→20:37)
[2019-08-28] MEDS: Furosemide 40 MG/4 ML VIAL SLOW IVP SCH (08:53)
[2019-08-28] MEDS: Letrozole 2.5 MG TAB PO SCH (09:47)
[2019-08-28] MEDS: Ergocalciferol 1.25 MG(50,000 UNITS) CAP PO SCH (09:47)
--- NOTE | 2019-08-28 17:32 | PDOC.HOSPP ---
- Subjective Encounter Date: 08/28/19 Encounter Time: 08:00 Subjective: Pt seen for followup re: acute hypoxic respiratory failure. Feels better, but still has SOBOE. - Objective Vital Signs & Weight: Vital Signs (12 hours) Temp Pulse Resp BP BP Pulse Ox 08/28/19 15:07 98.1 F 69 16 146/64 H 99 08/28/19 12:14 98.6 F 65 16 135/63 94 L 08/28/19 08:52 69 145/66 H 08/28/19 08:50 67 145/66 H 08/28/19 07:33 98.5 F 67 16 148/66 H 95 08/28/19 07:15 61 16 96 Weight Admit Weight 383 lb 3.2 oz Weight 370 lb 1.6 oz I&O: 08/27/19 08/28/19 08/29/19 06:59 06:59 06:59 Intake Total 360 150 Output Total 2550 100 Balance -2190 50 Result Diagrams: 08/26/19 05:25 08/28/19 05:20 Additional Labs: Labs and MARs reviewed by me EKG Reviewed by me: Yes (Tele: NSR) Hospitalist ROS - Review of Systems Respiratory: reports: SOB with excertion. denies: cough, dry, shortness of breath, hemoptysis, pleuritic pain, sputum, wheezing Cardiovascular: denies: chest pain, palpitations, orthopnea, paroxysmal noc. dyspnea, edema, light headedness - Medication Medications: Active Medications Generic Name Dose Route Start Last Admin Trade Name Freq PRN Reason Stop Dose Admin Albuterol/Ipratropium 3 ml 08/25/19 07:00 08/28/19 13:54 Duoneb NEB Not Given [id number] LIAM Amlodipine Besylate 10 mg 08/25/19 09:00 08/28/19 08:50 Norvasc PO 10 mg DAILY LIAM Administration Aspirin 325 mg 08/25/19 09:00 08/28/19 08:52 Ecotrin PO 325 mg DAILY LIAM Administration Enoxaparin Sodium 40 mg 08/25/19 09:00 08/28/19 08:49 Lovenox SC 40 mg 0900 LIAM Administration Ergocalciferol 1.25 mg 08/28/19 09:00 08/28/19 09:47 Drisdol PO 1.25 mg Q7DAYS LIAM Administration Escitalopram Oxalate 10 mg 08/25/19 09:00 08/28/19 08:50 Lexapro PO 10 mg DAILY LIAM Administration Furosemide 40 mg 08/25/19 09:00 08/28/19 08:53 Lasix SLOW IVP 40 mg DAILY LIAM Administration Letrozole 2.5 mg 08/28/19 09:00 08/28/19 09:47 Femara PO 2.5 mg DAILY LIAM Administration Levothyroxine Sodium 200 mcg 08/25/19 06:00 08/28/19 06:03 Synthroid PO 200 mcg 0600 LIAM Administration Mometasone Furoate 1 puff 08/25/19 18:30 08/27/19 18:50 Asmanex INH 1 puff 1830 LIAM Administration Potassium Chloride 10 meq 08/26/19 17:00 08/28/19 16:38 Klor-Con 10 PO 10 meq BID-WM LIAM Administration Saccharomyces Boulardii 250 mg 08/25/19 09:00 08/28/19 08:52 Florastor PO 250 mg DAILY LIAM Administration Sotalol HCl 80 mg 08/25/19 09:00 08/28/19 08:52 Betapace PO 80 mg BID LIAM Administration - Exam General - other findings: Morbidly obese Eye: scleral icterus ENT: normocephalic atraumatic Neck: supple Heart: RRR, no rubs Respiratory: CTAB Gastrointestinal: soft, non-tender Extremities: 2+ LE edema Musculoskeletal: normal tone, normal strength Psychiatric: normal affect, normal behavior Hosp A/P (1) Acute respiratory failure with hypoxia Code(s): J96.01 - ACUTE RESPIRATORY FAILURE WITH HYPOXIA Status: Acute (2) Acute on chronic diastolic CHF (congestive heart failure), NYHA class 3 Code(s): I50.33 - ACUTE ON CHRONIC DIASTOLIC (CONGESTIVE) HEART FAILURE Status : Acute (3) Morbid obesity Code(s): E66.01 - MORBID (SEVERE) OBESITY DUE TO EXCESS CALORIES Status: Chronic (4) Hypothyroidism Code(s): E03.9 - HYPOTHYROIDISM, UNSPECIFIED Status: Chronic - Plan PT/OT, out of bed/ambulate Pt improving with IV furosemide, still not at baseline. SNU vs home with HH. Continue synthroid. Continue letrozole. Creatinine improved to 1.71 today.
[2019-08-28] MEDS: Mometasone Furoate 30 PUFF 220 MCG INH SCH (18:59)
[2019-08-29] MEDS: Levothyroxine Sodium 100 MCG TAB PO SCH (05:19)
[2019-08-29] MEDS: Potassium Chloride 10 MEQ TAB PO SCH ×2 (07:56→16:00)
[2019-08-29] MEDS: Saccharomyces boulardii 250 MG CAP PO SCH (08:59)
[2019-08-29] MEDS: Sotalol HCl 80 MG TAB PO SCH ×2 (08:59→20:22)
[2019-08-29] MEDS: Escitalopram Oxalate 10 mg Tablet PO SCH (09:01)
[2019-08-29] MEDS: Enoxaparin Sodium 40 MG/0.4 ML SYRINGE SC SCH (09:01)
[2019-08-29] MEDS: Aspirin 325 mg Enteric Coated Tablet PO SCH (09:01)
[2019-08-29] MEDS: Letrozole 2.5 MG TAB PO SCH (09:02)
[2019-08-29] MEDS: Amlodipine 10 MG TAB PO SCH (09:02)
[2019-08-29] MEDS: Furosemide 40 MG/4 ML VIAL SLOW IVP SCH (09:03)
--- NOTE | 2019-08-29 14:10 | RAD ---
XR Chest Pa Lat STANDARD HISTORY: shortness of breath COMPARISON: 08/24/2019 FINDINGS: The heart size is stable. Right-sided subclavian central venous catheter remains in place t here are bilateral pleural effusions, left larger than right. No pneumothoraces are seen.
--- NOTE | 2019-08-29 15:44 | PDOC.HOSPP ---
- Subjective Subjective: Seen and examined. Case discussed with patient and nursing staff. RN tells me that the patient is more short of breath and over the past several days. Requiring breathing treatments every two hours. Oxygenation 4.5 L nasal cannula is required, patient has not previously been on oxygen. Patient has no diagnosis of COPD or emphysema though she has 50+ pack year of secondhand cigarette smoke from her mother and her . Patient is on IV Lasix for CHF with diastolic dysfunction. Blood pressure issues. - Objective Vital Signs & Weight: Vital Signs (12 hours) Temp Pulse Resp BP BP Pulse Ox 08/29/19 15:03 98.6 F 73 32 H 187/82 H 96 08/29/19 12:32 70 24 H 97 08/29/19 11:23 98.8 F 75 29 H 158/75 H 96 08/29/19 08:59 73 164/75 H 08/29/19 08:07 77 16 96 08/29/19 07:36 97.6 F 72 26 H 183/84 H 97 08/29/19 05:03 88 20 97 08/29/19 03:45 162/76 H Weight Admit Weight 383 lb 3.2 oz Weight 371 lb 6 oz I&O: 08/28/19 08/29/19 08/30/19 06:59 06:59 06:59 Intake Total 150 870 Output Total 100 1560 Balance 50 -690 Result Diagrams: 08/26/19 05:25 08/28/19 05:20 Hospitalist ROS - Review of Systems All other systems reviewed; all pertinent +/- noted in HPI/Subj - Medication Medications: Active Medications Generic Name Dose Route Start Last Admin Trade Name Freq PRN Reason Stop Dose Admin Albuterol/Ipratropium 3 ml 08/25/19 07:00 08/29/19 12:32 Duoneb NEB 3 ml [id number] LIAM Administration Albuterol/Ipratropium 3 ml 08/29/19 05:03 08/29/19 08:07 Duoneb NEB 3 ml [id number] PRN Administration SOB &/or Wheezing Amlodipine Besylate 10 mg 08/25/19 09:00 08/29/19 09:02 Norvasc PO 10 mg DAILY LIAM Administration Aspirin 325 mg 08/25/19 09:00 08/29/19 09:01 Ecotrin PO 325 mg DAILY LIAM Administration Enoxaparin Sodium 40 mg 08/25/19 09:00 08/29/19 09:01 Lovenox SC 40 mg 0900 LIAM Administration Ergocalciferol 1.25 mg 08/28/19 09:00 08/28/19 09:47 Drisdol PO 1.25 mg Q7DAYS LIAM Administration Escitalopram Oxalate 10 mg 08/25/19 09:00 08/29/19 09:01 Lexapro PO 10 mg DAILY LIAM Administration Letrozole 2.5 mg 08/28/19 09:00 08/29/19 09:02 Femara PO 2.5 mg DAILY LIAM Administration Levothyroxine Sodium 200 mcg 08/25/19 06:00 08/29/19 05:19 Synthroid PO 200 mcg 0600 LIAM Administration Mometasone Furoate 1 puff 08/25/19 18:30 08/28/19 18:59 Asmanex INH 1 puff 1830 LIAM Administration Potassium Chloride 10 meq 08/26/19 17:00 08/29/19 07:56 Klor-Con 10 PO 10 meq BID-WM LIAM Administration Saccharomyces Boulardii 250 mg 08/25/19 09:00 08/29/19 08:59 Florastor PO 250 mg DAILY LIAM Administration Sotalol HCl 80 mg 08/25/19 09:00 08/29/19 08:59 Betapace PO 80 mg BID LIAM Administration - Exam General Appearance: awake alert, ill appearing Eye: PERRL ENT: normocephalic atraumatic, moist mucosa Neck: supple, symmetric, no lymphadenopathy Heart: RRR, no murmur, no gallops, no rubs Respiratory: no rales (No rales heard secondary to body habitus), no ronchi, tachypneic, wheezes Respiratory - other findings: Faint breath sounds secondary to body habitus. Upper airway wheezing Gastrointestinal: soft, non-tender, non-distended, no guarding, no rigidity Extremities: no edema Skin: no lesions, no rashes Neurological: cranial nerve grossly intact, no focal deficits Musculoskeletal: generalized weakness Psychiatric: normal affect, A&O x 3 Hosp A/P (1) Acute on chronic diastolic CHF (congestive heart failure), NYHA class 3 Code(s): I50.33 - ACUTE ON CHRONIC DIASTOLIC (CONGESTIVE) HEART FAILURE Status : Acute (2) Acute respiratory failure with hypoxia Code(s): J96.01 - ACUTE RESPIRATORY FAILURE WITH HYPOXIA Status: Acute (3) Hypothyroidism Code(s): E03.9 - HYPOTHYROIDISM, UNSPECIFIED Status: Chronic (4) Morbid obesity Code(s): E66.01 - MORBID (SEVERE) OBESITY DUE TO EXCESS CALORIES Status: Chronic (5) Second hand smoke exposure Status: Chronic - Plan Plan: cardiology consultation, recommendations appreciated pulmonology consultation, recommendations appreciated IV Lasix, transition to oral Lasix per cardiology cardiomyopathy regimen: -will add carvedilol for improve blood pressure control -Lisinopril -Lasix CXR does not have overt pulm edema - yet still with worsening shortness of breath and supplemental O2 demands CTA - no PE and small pleural effusions No LE edema Echo with preserved EF and diastolic dysfunction BNP only minorly elevated at 132 Afebrile Normal WBC count inhaled corticosteroids duoneb therapy Q2 prn shortness of breath Supplemental O2 to maintain O2 sat >88% Incentive spirometry ordered Q1 hour while awake Has never been formally diagnosed with emphysema/ COPD >50 pack year hx of second hand smoke May benefit from oral vs IV steroids
[2019-08-29] MEDS: hydrALAZINE 20 MG/ML VIAL SLOW IVP PRN ×2 (15:52→20:23)
[2019-08-29] MEDS: Carvedilol 3.125 MG TAB PO SCH (16:00)
[2019-08-29] MEDS: Mometasone Furoate 30 PUFF 220 MCG INH SCH (18:15)
[2019-08-29] MEDS: methylPREDNISolone Sod Succ 40 MG VIAL IVP SCH (21:18)
[2019-08-29] MEDS ORDERED: Furosemide 40 MG/4 ML VIAL SLOW IVP SCH (23:00)
--- NOTE | 2019-08-29 23:20 | RAD ---
CHEST ONE VIEW: 08/29/19 COMPARISON: 08/24/19, 08/29/19. HISTORY: Shortness of breath. FINDINGS: Stable right sided Port-A-Cath. There is persistent cardiomegaly, atherosclerosis and pulmonary vascu lar prominence. Persistent bibasilar pleural and parenchymal changes. No pneumothorax. IMPRESSION: No significant interval change. POS: [facility]
[2019-08-30 05:22] LABS: Anion Gap 16 mmol/L (10-20); BUN (Urea Nitrogen) 24 mg/dL (9.8-20.1); Calc. Creatinine Clearance 89 mL/min (70-130); Carbon Dioxide 31 mmol/L (23-31); Chloride 94 mmol/L (98-107); Estimated GFR-MDRD 33; Glucose 128 mg/dL (83-110); Potassium 3.6 mmol/L (3.5-5.1); Sodium 137 mmol/L (136-145)
[2019-08-30] MEDS: Levothyroxine Sodium 100 MCG TAB PO SCH (05:50)
[2019-08-30] MEDS: methylPREDNISolone Sod Succ 40 MG VIAL IVP SCH ×3 (05:51→21:23)
[2019-08-30] MEDS: Sotalol HCl 80 MG TAB PO SCH ×2 (07:51→21:20)
[2019-08-30] MEDS: Furosemide 40 MG TAB PO SCH (07:51)
[2019-08-30] MEDS: Letrozole 2.5 MG TAB PO SCH (07:51)
[2019-08-30] MEDS: Aspirin 325 mg Enteric Coated Tablet PO SCH (07:51)
[2019-08-30] MEDS: Carvedilol 3.125 MG TAB PO SCH ×2 (07:51→16:37)
[2019-08-30] MEDS: Saccharomyces boulardii 250 MG CAP PO SCH (07:51)
[2019-08-30] MEDS: Potassium Chloride 10 MEQ TAB PO SCH ×2 (07:51→16:38)
[2019-08-30] MEDS: Escitalopram Oxalate 10 mg Tablet PO SCH (07:52)
[2019-08-30] MEDS: Enoxaparin Sodium 40 MG/0.4 ML SYRINGE SC SCH (07:52)
[2019-08-30] MEDS: Amlodipine 10 MG TAB PO SCH (07:52)
--- NOTE | 2019-08-30 13:56 | PDOC.HOSPP ---
- Subjective Subjective: Seen and examined. Patient feeling better than yesterday. Patient's having less wheezing. Improved after starting steroids. Patient still requiring supplemental oxygen to maintain O2 saturation's, was not on oxygen therapy prior to admission. CHF has been effectively treated and the patient's O2 requirements are still tenuous. Patient has not been formally diagnosed with COPD/emphysema in the past. - Objective Vital Signs & Weight: Vital Signs (12 hours) Temp Pulse Resp BP BP Pulse Ox 08/30/19 13:38 65 20 95 08/30/19 11:14 97.8 F 75 24 H 110/59 L 93 L 08/30/19 07:42 97.3 F L 76 24 H 160/74 H 96 08/30/19 07:22 97 08/30/19 07:21 73 20 97 08/30/19 04:00 98.7 F 80 20 157/74 H 95 Weight Admit Weight 383 lb 3.2 oz Weight 360 lb 14.4 oz I&O: 08/29/19 08/30/19 08/31/19 06:59 06:59 06:59 Intake Total 870 150 Output Total 1560 2950 Balance -690 -2800 Result Diagrams: 08/26/19 05:25 08/30/19 03:39 Radiology Reviewed by me: Yes (CXR) Hospitalist ROS - Review of Systems All other systems reviewed; all pertinent +/- noted in HPI/Subj - Medication Medications: Active Medications Generic Name Dose Route Start Last Admin Trade Name Freq PRN Reason Stop Dose Admin Albuterol/Ipratropium 3 ml 08/25/19 07:00 08/30/19 13:38 Duoneb NEB 3 ml [id number] LIAM Administration Albuterol/Ipratropium 3 ml 08/29/19 05:03 08/29/19 16:32 Duoneb NEB 3 ml [id number] PRN Administration SOB &/or Wheezing Amlodipine Besylate 10 mg 08/25/19 09:00 08/30/19 07:52 Norvasc PO 10 mg DAILY LIAM Administration Aspirin 325 mg 08/25/19 09:00 08/30/19 07:51 Ecotrin PO 325 mg DAILY LIAM Administration Carvedilol 3.125 mg 08/29/19 17:00 08/30/19 07:51 Coreg PO 3.125 mg BID-WM LIAM Administration Enoxaparin Sodium 40 mg 08/25/19 09:00 08/30/19 07:52 Lovenox SC 40 mg 0900 LIAM Administration Ergocalciferol 1.25 mg 08/28/19 09:00 08/28/19 09:47 Drisdol PO 1.25 mg Q7DAYS LIAM Administration Escitalopram Oxalate 10 mg 08/25/19 09:00 08/30/19 07:52 Lexapro PO 10 mg DAILY LIAM Administration Furosemide 40 mg 08/30/19 07:30 08/30/19 07:51 Lasix PO 40 mg DAILY-AC LIAM Administration Hydralazine HCl 10 mg 08/29/19 15:38 08/29/19 20:23 Apresoline SLOW IVP 10 mg Q4H PRN Administration Hypertension Letrozole 2.5 mg 08/28/19 09:00 08/30/19 07:51 Femara PO 2.5 mg DAILY LIAM Administration Levothyroxine Sodium 200 mcg 08/25/19 06:00 08/30/19 05:50 Synthroid PO 200 mcg 0600 LIAM Administration Methylprednisolone Sodium Succinate 20 mg 08/29/19 22:00 08/30/19 05:51 Solu-Medrol IVP 20 mg Q8HR LIAM Administration Mometasone Furoate 1 puff 08/25/19 18:30 08/29/19 18:15 Asmanex INH 1 puff 1830 LIAM Administration Potassium Chloride 10 meq 08/26/19 17:00 08/30/19 07:51 Klor-Con 10 PO 10 meq BID-WM LIAM Administration Saccharomyces Boulardii 250 mg 08/25/19 09:00 08/30/19 07:51 Florastor PO 250 mg DAILY LIAM Administration Sotalol HCl 80 mg 08/25/19 09:00 08/30/19 07:51 Betapace PO 80 mg BID LIAM Administration - Exam General Appearance: NAD, awake alert Eye: PERRL, anicteric sclera ENT: no oropharyngeal lesions, moist mucosa Neck: supple, symmetric, no lymphadenopathy Heart: no murmur, no gallops, no rubs Respiratory: no rales, no ronchi Respiratory - other findings: Wheezing improved from yesterday, Decr. resp. excursion from body habitus Gastrointestinal: soft, non-tender, no guarding, no rigidity Extremities: no edema Skin: no lesions, no rashes Neurological: cranial nerve grossly intact, no focal deficits Musculoskeletal: generalized weakness Psychiatric: normal affect, A&O x 3 Hosp A/P (1) Acute on chronic diastolic CHF (congestive heart failure), NYHA class 3 Code(s): I50.33 - ACUTE ON CHRONIC DIASTOLIC (CONGESTIVE) HEART FAILURE Status : Acute (2) Acute respiratory failure with hypoxia Code(s): J96.01 - ACUTE RESPIRATORY FAILURE WITH HYPOXIA Status: Acute (3) Hypothyroidism Code(s): E03.9 - HYPOTHYROIDISM, UNSPECIFIED Status: Chronic (4) Morbid obesity Code(s): E66.01 - MORBID (SEVERE) OBESITY DUE TO EXCESS CALORIES Status: Chronic (5) Second hand smoke exposure Status: Chronic - Plan Plan: cardiology consultation, recommendations appreciated pulmonology consultation, recommendations appreciated IV Lasix, transitioned to oral Lasix per cardiology cardiomyopathy regimen: -carvedilol -Lisinopril -Lasix CXR does not have overt pulm edema - yet still with worsening shortness of breath and supplemental O2 demands CTA - no PE and small pleural effusions No LE edema Echo with preserved EF and diastolic dysfunction BNP only minorly elevated at 132 Afebrile Normal WBC count inhaled corticosteroids duoneb therapy Q2 prn shortness of breath Supplemental O2 to maintain O2 sat >88% Incentive spirometry ordered Q1 hour while awake Has never been formally diagnosed with emphysema/ COPD >50 pack year hx of second hand smoke Improving on IV steroids
--- NOTE | 2019-08-30 14:56 | PDOC.CPN ---
- Subjective Date: 08/30/19 Time: 15:00 Interval history: The pt seen and examined. No overnight events. No cardiac complaints. On 3LNC - Objective Allergies/Adverse Reactions: Allergies Allergy/AdvReac Type Severity Reaction Status Date / Time Penicillins Allergy Intermediate Rash Verified 08/25/19 05:06 Visit Medications: Current Medications Acetaminophen (Tylenol) 650 mg PO Q4H PRN PRN Reason: Headache/Fever/Mild Pain (1-3) Albuterol/Ipratropium (Duoneb) 3 ml NEB [id number] [facility] Last Admin: 08/30/19 13:38 Dose: 3 ml Albuterol/Ipratropium (Duoneb) 3 ml NEB [id number] PRN PRN Reason: SOB &/or Wheezing Last Admin: 08/29/19 16:32 Dose: 3 ml Amlodipine Besylate (Norvasc) 10 mg PO DAILY [facility] Last Admin: 08/30/19 07:52 Dose: 10 mg Aspirin (Ecotrin) 325 mg PO DAILY [facility] Last Admin: 08/30/19 07:51 Dose: 325 mg Carvedilol (Coreg) 3.125 mg PO BID-[facility] Last Admin: 08/30/19 07:51 Dose: 3.125 mg Enoxaparin Sodium (Lovenox) 40 mg SC 0900 [facility] Last Admin: 08/30/19 07:52 Dose: 40 mg Ergocalciferol (Drisdol) 1.25 mg PO Q7DAYS [facility] Last Admin: 08/28/19 09:47 Dose: 1.25 mg Escitalopram Oxalate (Lexapro) 10 mg PO DAILY [facility] Last Admin: 08/30/19 07:52 Dose: 10 mg Furosemide (Lasix) 40 mg PO DAILY-AC [facility] Last Admin: 08/30/19 07:51 Dose: 40 mg Hydralazine HCl (Apresoline) 10 mg SLOW IVP Q4H PRN PRN Reason: Hypertension Last Admin: 08/29/19 20:23 Dose: 10 mg Letrozole (Femara) 2.5 mg PO DAILY [facility] Last Admin: 08/30/19 07:51 Dose: 2.5 mg Levothyroxine Sodium (Synthroid) 200 mcg PO 0600 [facility] Last Admin: 08/30/19 05:50 Dose: 200 mcg Methylprednisolone Sodium Succinate (Solu-Medrol) 20 mg IVP Q8HR [facility] Last Admin: 08/30/19 13:53 Dose: 20 mg Mometasone Furoate (Asmanex) 1 puff INH 1830 [facility] Last Admin: 08/29/19 18:15 Dose: 1 puff Potassium Chloride (Klor-Con 10) 10 meq PO BID-WM [facility] Last Admin: 08/30/19 07:51 Dose: 10 meq Saccharomyces Boulardii (Florastor) 250 mg PO DAILY [facility] Last Admin: 08/30/19 07:51 Dose: 250 mg Senna/Docusate Sodium (Senokot S) 2 tab PO BIDPRN PRN PRN Reason: Constipation Sotalol HCl (Betapace) 80 mg PO BID [facility] Last Admin: 08/30/19 07:51 Dose: 80 mg Vital Signs & Weight: Vital Signs Temp Pulse Resp BP BP Pulse Ox 08/30/19 13:38 65 20 95 08/30/19 11:14 97.8 F 75 24 H 110/59 L 93 L 08/30/19 07:42 97.3 F L 76 24 H 160/74 H 96 08/30/19 07:22 97 08/30/19 07:21 73 20 97 08/30/19 04:00 98.7 F 80 20 157/74 H 95 Admit Weight 383 lb 3.2 oz Weight 360 lb 14.4 oz - Physical Exam General: alert & oriented x3 Neck: supple neck Cardiac: regular rate and rhythm, S1/S2 Lungs: decreased breath sounds Neuro: cranial nerve 2-12 intact Skin: clear Musculoskeletal: decreased range of motion - Labs Result Diagrams: 08/26/19 05:25 08/30/19 03:39 Troponin/CKMB Troponin I 0.020 ng/mL (< 0.028) 08/25/19 04:19 - Telemetry Sinus rhythms and dysrhythmias: sinus rhythm - Assessment/Plan Assessment/Plan: 1. Acute on chronic diastolic HF - stable with 3LNC; on BBlocker and Lasix; not on TRAE/ARB due to elevated Cr level 2. HTN - stable 3. DM type 2 - 4. HLD - on Statin 5. Hypothyroidism - 6. Prox Afib with s/p DCCV in 2008 - remains in SR; on Sotalol and ASA 325mg qd 7. hx of Breast ca with chemo and radiation - 8. ERICA on CKD MAR reviewed Pt. seen and eval. by me. I agree with the A/P by the GUM WORKER. RRR,ches clear. No significant edema. gjm
[2019-08-30] MEDS: Mometasone Furoate 30 PUFF 220 MCG INH SCH (18:17)
--- NOTE | 2019-08-30 21:57 | CON ---
DATE OF CONSULTATION: 08/30/2019 HISTORY OF PRESENT ILLNESS: Lety Chakraborty is a 73-year-old female. I was consulted for possible COPD. She has a history of being to a smoker and growing up with smokers. She is hypoxic. She has dyspnea on exertion. She denies chronic cough, hemoptysis, or chest pain. She denies having history of allergies, asthma, or COPD, worked up with pulmonary function test. PAST MEDICAL HISTORY: 1. Remarkable for atrial fibrillation requiring cardioversion in 2008. 2. History of stage IV breast cancer involving bones. 3. History of chemoradiation. 4. History of diabetes. 5. Hypertension. 6. Lipid disorder. 7. Hypothyroidism. MEDICATIONS: Prior to admission, she was on; 1. Sotalol. 2. Synthroid. 3. Letrozole. 4. Amlodipine. 5. Aspirin. 6. Lexapro. 7. Flovent. ALLERGIES: REPORTS ALLERGIES TO PENICILLIN. SOCIAL HISTORY: She has 2 children. She is not . She does not smoke. Does not drink very often. She reports no history of drug use. FAMILY HISTORY: Not obtained. REVIEW OF SYSTEMS: Ten point review of systems completed, otherwise negative. PHYSICAL EXAMINATION: GENERAL: She is in no distress. She is flat in bed. She is 5 feet 5 inches, 360 pounds. VITAL SIGNS: She is afebrile, heart rate is 68, respiratory rate is 18 to 20s, oximetry is 93-97, blood pressure 142/78. HEENT: Pupils were equal, sclerae is anicteric. NECK: Supple. No lymphadenopathy. LUNGS: Clear. HEART: Regular rhythm. S1 and S2 are normal. ABDOMEN: Soft and nontender. EXTREMITIES: Without clubbing, cyanosis, or edema. IMAGING STUDIES: Chest x-ray is reviewed, it is under-penetrated because of her obesity. Chest CT is reviewed, she has small bilateral effusions. No alveolar infiltrates. She has posterior basilar atelectasis. There is an elevated left hemidiaphragm. MediPort is seen. 1 cm left hilar nodule, could be a pseudotumor. She has sclerotic changes in her spine. IMPRESSION: 1. Metastatic breast cancer. 2. Morbid obesity with severe deconditioning. 3. Dyspnea on exertion secondary to severe deconditioning. Mild elevation of her left hemidiaphragm contributes. There is no evidence of interstitial lung disease. There is no radiographic evidence of bullous lung disease and she has never smoked. It is extremely unlikely that her passive smoke exposure has given her chronic obstructive pulmonary disease. Bedside spirometry is not unreasonable, but I suspect it will show a restrictive defect secondary to her essentially life-threatening obesity. We had a long discussion about weight loss. Ordered spirometry for next week since I do not do it on the weekends. This is a 50 minute consult, with greater than 50% of time spent on unit coordinating care. Job ID: [id number] MTDD
[2019-08-31 06:03] LABS: Anion Gap 12 mmol/L (10-20); BUN (Urea Nitrogen) 32 mg/dL (9.8-20.1); Calc. Creatinine Clearance 76 mL/min (70-130); Calcium 8.6 mg/dL (7.8-10.44); Carbon Dioxide 31 mmol/L (23-31); Chloride 98 mmol/L (98-107); Estimated GFR-MDRD 28; Glucose 121 mg/dL (83-110); Sodium 137 mmol/L (136-145)
[2019-08-31] MEDS: Levothyroxine Sodium 100 MCG TAB PO SCH (06:04)
[2019-08-31] MEDS: methylPREDNISolone Sod Succ 40 MG VIAL IVP SCH ×2 (06:05→09:19)
[2019-08-31] MEDS: Furosemide 40 MG TAB PO SCH (09:17)
[2019-08-31] MEDS: Letrozole 2.5 MG TAB PO SCH (09:18)
[2019-08-31] MEDS: Sotalol HCl 80 MG TAB PO SCH ×2 (09:18→20:57)
[2019-08-31] MEDS: Carvedilol 3.125 MG TAB PO SCH ×2 (09:18→15:54)
[2019-08-31] MEDS: Enoxaparin Sodium 40 MG/0.4 ML SYRINGE SC SCH (09:18)
[2019-08-31] MEDS: Amlodipine 10 MG TAB PO SCH (09:18)
[2019-08-31] MEDS: Escitalopram Oxalate 10 mg Tablet PO SCH (09:18)
[2019-08-31] MEDS: Saccharomyces boulardii 250 MG CAP PO SCH (09:18)
[2019-08-31] MEDS: Potassium Chloride 10 MEQ TAB PO SCH ×2 (09:18→15:54)
[2019-08-31] MEDS: Aspirin 325 mg Enteric Coated Tablet PO SCH (09:18)
--- NOTE | 2019-08-31 15:09 | PDOC.HOSPP ---
- Subjective Subjective: Seen and examined. Patient states that she is feeling better and breathing much better since starting IV steroids. Patient continues to have wheezing this a.m. Patient does not have much of an appetite. All questions answered in detail. Patient happy with plan of care. - Objective Vital Signs & Weight: Vital Signs (12 hours) Temp Pulse Resp BP Pulse Ox 08/31/19 13:50 67 20 08/31/19 12:00 98.1 F 66 18 142/65 H 94 L 08/31/19 07:58 93 L 08/31/19 07:56 67 20 93 L 08/31/19 07:26 98.0 F 65 19 151/69 H 92 L 08/31/19 04:00 97.6 F 67 16 144/67 H 95 Weight Admit Weight 383 lb 3.2 oz Weight 362 lb 3 oz I&O: 08/30/19 08/31/19 09/01/19 06:59 06:59 06:59 Intake Total 150 800 Output Total 2950 600 Balance -2800 200 Result Diagrams: 08/26/19 05:25 08/31/19 04:31 Hospitalist ROS - Review of Systems All other systems reviewed; all pertinent +/- noted in HPI/Subj - Medication Medications: Active Medications Generic Name Dose Route Start Last Admin Trade Name Freq PRN Reason Stop Dose Admin Albuterol/Ipratropium 3 ml 08/25/19 07:00 08/31/19 13:50 Duoneb NEB 3 ml [id number] LIAM Administration Albuterol/Ipratropium 3 ml 08/29/19 05:03 08/29/19 16:32 Duoneb NEB 3 ml [id number] PRN Administration SOB &/or Wheezing Amlodipine Besylate 10 mg 08/25/19 09:00 08/31/19 09:18 Norvasc PO 10 mg DAILY LIAM Administration Aspirin 325 mg 08/25/19 09:00 08/31/19 09:18 Ecotrin PO 325 mg DAILY LIAM Administration Carvedilol 3.125 mg 08/29/19 17:00 08/31/19 09:18 Coreg PO 3.125 mg BID-WM LIAM Administration Enoxaparin Sodium 40 mg 08/25/19 09:00 08/31/19 09:18 Lovenox SC 40 mg 0900 LIAM Administration Ergocalciferol 1.25 mg 08/28/19 09:00 08/28/19 09:47 Drisdol PO 1.25 mg Q7DAYS LIAM Administration Escitalopram Oxalate 10 mg 08/25/19 09:00 08/31/19 09:18 Lexapro PO 10 mg DAILY LIAM Administration Furosemide 40 mg 08/30/19 07:30 08/31/19 09:17 Lasix PO 40 mg DAILY-AC LIAM Administration Hydralazine HCl 10 mg 08/29/19 15:38 08/29/19 20:23 Apresoline SLOW IVP 10 mg Q4H PRN Administration Hypertension Letrozole 2.5 mg 08/28/19 09:00 08/31/19 09:18 Femara PO 2.5 mg DAILY LIAM Administration Levothyroxine Sodium 200 mcg 08/25/19 06:00 08/31/19 06:04 Synthroid PO 200 mcg 0600 LIAM Administration Methylprednisolone Sodium Succinate 40 mg 08/31/19 09:00 08/31/19 09:19 Solu-Medrol IVP 40 mg DAILY LIAM Administration Mometasone Furoate 1 puff 08/25/19 18:30 08/30/19 18:17 Asmanex INH 1 puff 1830 LIAM Administration Potassium Chloride 10 meq 08/26/19 17:00 08/31/19 09:18 Klor-Con 10 PO 10 meq BID-WM LIAM Administration Saccharomyces Boulardii 250 mg 08/25/19 09:00 08/31/19 09:18 Florastor PO 250 mg DAILY LIAM Administration Sotalol HCl 80 mg 08/25/19 09:00 08/31/19 09:18 Betapace PO 80 mg BID LIAM Administration - Exam General Appearance: NAD, awake alert Eye: anicteric sclera ENT: normocephalic atraumatic, moist mucosa Neck: supple, symmetric, no lymphadenopathy Heart: no murmur, no gallops, no rubs Respiratory: no rales, no ronchi, no tachypnea, wheezes Respiratory - other findings: Decreased air movement secondary to body habitus Gastrointestinal: soft, non-tender, no guarding, no rigidity Extremities: 1+ LE edema Skin: no lesions, no rashes Neurological: cranial nerve grossly intact, no focal deficits Musculoskeletal: generalized weakness Psychiatric: normal affect, A&O x 3 Hosp A/P (1) Acute on chronic diastolic CHF (congestive heart failure), NYHA class 3 Code(s): I50.33 - ACUTE ON CHRONIC DIASTOLIC (CONGESTIVE) HEART FAILURE Status : Acute (2) Acute respiratory failure with hypoxia Code(s): J96.01 - ACUTE RESPIRATORY FAILURE WITH HYPOXIA Status: Acute (3) Hypothyroidism Code(s): E03.9 - HYPOTHYROIDISM, UNSPECIFIED Status: Chronic (4) Morbid obesity Code(s): E66.01 - MORBID (SEVERE) OBESITY DUE TO EXCESS CALORIES Status: Chronic (5) Second hand smoke exposure Status: Chronic - Plan Plan: cardiology consultation, recommendations appreciated pulmonology consultation, recommendations appreciated cardiomyopathy regimen: -carvedilol -Lisinopril -Lasix CXR does not have overt pulm edema - yet still with worsening shortness of breath and supplemental O2 demands CTA - no PE and small pleural effusions No LE edema Echo with preserved EF and diastolic dysfunction BNP only minorly elevated at 132 Afebrile Normal WBC count inhaled corticosteroids duoneb therapy Q2 prn shortness of breath Supplemental O2 to maintain O2 sat >88% Incentive spirometry ordered Q1 hour while awake Has never been formally diagnosed with emphysema/ COPD >50 pack year hx of second hand smoke Improving on IV steroids PFT on sunday per pulm Patient interested in sub acute placement to regain her independence
--- NOTE | 2019-08-31 15:23 | PDOC.CPN ---
- Subjective Date: 08/31/19 Time: 15:24 Interval history: The pt seen and examined. No overnight events. No cardiac complaints - Objective Allergies/Adverse Reactions: Allergies Allergy/AdvReac Type Severity Reaction Status Date / Time Penicillins Allergy Intermediate Rash Verified 08/25/19 05:06 Visit Medications: Current Medications Acetaminophen (Tylenol) 650 mg PO Q4H PRN PRN Reason: Headache/Fever/Mild Pain (1-3) Albuterol/Ipratropium (Duoneb) 3 ml NEB [id number] [facility] Last Admin: 08/31/19 13:50 Dose: 3 ml Albuterol/Ipratropium (Duoneb) 3 ml NEB [id number] PRN PRN Reason: SOB &/or Wheezing Last Admin: 08/29/19 16:32 Dose: 3 ml Amlodipine Besylate (Norvasc) 10 mg PO DAILY [facility] Last Admin: 08/31/19 09:18 Dose: 10 mg Aspirin (Ecotrin) 325 mg PO DAILY [facility] Last Admin: 08/31/19 09:18 Dose: 325 mg Carvedilol (Coreg) 3.125 mg PO BID-[facility] Last Admin: 08/31/19 09:18 Dose: 3.125 mg Enoxaparin Sodium (Lovenox) 40 mg SC 0900 [facility] Last Admin: 08/31/19 09:18 Dose: 40 mg Ergocalciferol (Drisdol) 1.25 mg PO Q7DAYS [facility] Last Admin: 08/28/19 09:47 Dose: 1.25 mg Escitalopram Oxalate (Lexapro) 10 mg PO DAILY [facility] Last Admin: 08/31/19 09:18 Dose: 10 mg Furosemide (Lasix) 40 mg PO DAILY-AC [facility] Last Admin: 08/31/19 09:17 Dose: 40 mg Hydralazine HCl (Apresoline) 10 mg SLOW IVP Q4H PRN PRN Reason: Hypertension Last Admin: 08/29/19 20:23 Dose: 10 mg Letrozole (Femara) 2.5 mg PO DAILY [facility] Last Admin: 08/31/19 09:18 Dose: 2.5 mg Levothyroxine Sodium (Synthroid) 200 mcg PO 0600 [facility] Last Admin: 08/31/19 06:04 Dose: 200 mcg Methylprednisolone Sodium Succinate (Solu-Medrol) 40 mg IVP DAILY [facility] Last Admin: 08/31/19 09:19 Dose: 40 mg Mometasone Furoate (Asmanex) 1 puff INH 1830 [facility] Last Admin: 08/30/19 18:17 Dose: 1 puff Potassium Chloride (Klor-Con 10) 10 meq PO BID-WM [facility] Last Admin: 08/31/19 09:18 Dose: 10 meq Saccharomyces Boulardii (Florastor) 250 mg PO DAILY [facility] Last Admin: 08/31/19 09:18 Dose: 250 mg Senna/Docusate Sodium (Senokot S) 2 tab PO BIDPRN PRN PRN Reason: Constipation Sotalol HCl (Betapace) 80 mg PO BID [facility] Last Admin: 08/31/19 09:18 Dose: 80 mg Vital Signs & Weight: Vital Signs Temp Pulse Resp BP Pulse Ox 08/31/19 13:50 67 20 08/31/19 12:00 98.1 F 66 18 142/65 H 94 L 08/31/19 07:58 93 L 08/31/19 07:56 67 20 93 L 08/31/19 07:26 98.0 F 65 19 151/69 H 92 L 08/31/19 04:00 97.6 F 67 16 144/67 H 95 Admit Weight 383 lb 3.2 oz Weight 362 lb 3 oz - Physical Exam General: alert & oriented x3 HEENT: mucus membranes moist Neck: supple neck Cardiac: regular rate and rhythm, S1/S2 Lungs: decreased breath sounds Neuro: cranial nerve 2-12 intact Abdomen: unremarkable Extremities: no cyanosis Skin: clear Musculoskeletal: decreased range of motion - Labs Result Diagrams: 08/26/19 05:25 08/31/19 04:31 Troponin/CKMB Troponin I 0.020 ng/mL (< 0.028) 08/25/19 04:19 - Telemetry Sinus rhythms and dysrhythmias: sinus rhythm - Assessment/Plan Assessment/Plan: 1. Acute on chronic diastolic HF - stable with 2LNC; on BBlocker and Lasix; not on TRAE/ARB due to elevated Cr level 2. HTN - stable 3. DM type 2 - 4. HLD - on Statin 5. Hypothyroidism - 6. Prox Afib with s/p DCCV in 2008 - remains in SR; on Sotalol and ASA 325mg qd 7. hx of Breast ca with chemo and radiation - 8. ERICA on CKD MAR reviewed * Dr Camacho's pt
[2019-08-31] MEDS ORDERED: Guaifenesin DM 100-10/5 ML UDCUP PO PRN (15:59)
[2019-08-31] MEDS: Mometasone Furoate 30 PUFF 220 MCG INH SCH (20:18)
[2019-08-31] MEDS: guaiFENesin ER 600 MG TAB PO SCH (20:57)
[2019-09-01] MEDS: Levothyroxine Sodium 100 MCG TAB PO SCH (05:10)
[2019-09-01 05:49] LABS: Anion Gap 12 mmol/L (10-20); BUN (Urea Nitrogen) 35 mg/dL (9.8-20.1); Calc. Creatinine Clearance 78 mL/min (70-130); Calcium 8.6 mg/dL (7.8-10.44); Carbon Dioxide 34 mmol/L (23-31); Chloride 97 mmol/L (98-107); Estimated GFR-MDRD 29; Glucose 97 mg/dL (83-110); Potassium 4.2 mmol/L (3.5-5.1); Sodium 139 mmol/L (136-145)
[2019-09-01] MEDS: Aspirin 325 mg Enteric Coated Tablet PO SCH (07:56)
[2019-09-01] MEDS: guaiFENesin ER 600 MG TAB PO SCH (07:56)
[2019-09-01] MEDS: Furosemide 40 MG TAB PO SCH (07:56)
[2019-09-01] MEDS: Sotalol HCl 80 MG TAB PO SCH ×2 (07:57→21:01)
[2019-09-01] MEDS: Saccharomyces boulardii 250 MG CAP PO SCH (07:57)
[2019-09-01] MEDS: Potassium Chloride 10 MEQ TAB PO SCH ×2 (07:57→18:05)
[2019-09-01] MEDS: Escitalopram Oxalate 10 mg Tablet PO SCH (07:57)
[2019-09-01] MEDS: Carvedilol 3.125 MG TAB PO SCH ×2 (07:57→18:03)
[2019-09-01] MEDS: Amlodipine 10 MG TAB PO SCH (07:57)
[2019-09-01] MEDS: methylPREDNISolone Sod Succ 40 MG VIAL IVP SCH (07:58)
[2019-09-01] MEDS: Letrozole 2.5 MG TAB PO SCH (07:58)
[2019-09-01] MEDS: Enoxaparin Sodium 40 MG/0.4 ML SYRINGE SC SCH (07:58)
--- NOTE | 2019-09-01 14:42 | PRG ---
DATE OF SERVICE: 09/01/2019 SUBJECTIVE: Lety Chakraborty had her PFTs done this morning. I reviewed these. These show findings consistent with mixed defect. Part of the problem in interpreting her pulmonary function tests is that she was not sitting on the side of the bed. She was in the sitting position with her legs up, which elevates her hemidiaphragm. OBJECTIVE: VITAL SIGNS: Heart rate 65, respiratory rate is 20, oximetry is 94%, blood pressure is 166/79. HEART: Unchanged. ABDOMEN: Unchanged. I do not think for asthma, given her poor response to therapy. I do not feel she has chronic bronchitis. I will start her on Brovana and budesonide twice a day. Her steroids can be decreased tomorrow. I doubt she has endobronchial spread of her breast cancer accounting for the obstructive component of her pulmonary function . Mucous plugging certainly can contribute peripheral mucus buildup with her atelectasis. Side effects small. It is interesting to note that she has not felt that the nebulizer treatments made her feel better. She did feel better on the steroids. I am not sure . Her bronchodilator improvement did not . We will continue to follow. Job ID: [id number]
--- NOTE | 2019-09-01 16:36 | PDOC.HOSPP ---
- Subjective Subjective: Seen and examined. Patient states that her cough is slightly worse today after starting Mucinex. She does feel like she is getting up a little bit of phlegm. PFTs done after I saw the patient were interpreted by pulmonology with mixed obstructive and restrictive pattern, however the patient was not sitting at the edge of her bed and the study is sub optimal. - Objective Vital Signs & Weight: Vital Signs (12 hours) Temp Pulse Resp BP Pulse Ox 09/01/19 15:33 98.4 F 65 16 149/69 H 95 09/01/19 11:20 98.0 F 60 14 135/65 96 09/01/19 08:08 65 20 94 L 09/01/19 07:57 66 09/01/19 07:53 98.8 F 66 18 166/79 H 96 09/01/19 07:20 93 L Weight Admit Weight 383 lb 3.2 oz Weight 365 lb 3.2 oz I&O: 08/31/19 09/01/19 09/02/19 06:59 06:59 06:59 Intake Total 800 1050 Output Total 600 800 Balance 200 250 Result Diagrams: 08/26/19 05:25 09/01/19 05:03 Hospitalist ROS - Review of Systems All other systems reviewed; all pertinent +/- noted in HPI/Subj - Medication Medications: Active Medications Generic Name Dose Route Start Last Admin Trade Name Freq PRN Reason Stop Dose Admin Albuterol/Ipratropium 3 ml 08/29/19 05:03 08/29/19 16:32 Duoneb NEB 3 ml [id number] PRN Administration SOB &/or Wheezing Amlodipine Besylate 10 mg 08/25/19 09:00 09/01/19 07:57 Norvasc PO 10 mg DAILY LIAM Administration Aspirin 325 mg 08/25/19 09:00 09/01/19 07:56 Ecotrin PO 325 mg DAILY LIAM Administration Carvedilol 3.125 mg 08/29/19 17:00 09/01/19 07:57 Coreg PO 3.125 mg BID-WM LIAM Administration Enoxaparin Sodium 40 mg 08/25/19 09:00 09/01/19 07:58 Lovenox SC 40 mg 0900 LIAM Administration Ergocalciferol 1.25 mg 08/28/19 09:00 08/28/19 09:47 Drisdol PO 1.25 mg Q7DAYS LIAM Administration Escitalopram Oxalate 10 mg 08/25/19 09:00 09/01/19 07:57 Lexapro PO 10 mg DAILY LIAM Administration Furosemide 40 mg 08/30/19 07:30 09/01/19 07:56 Lasix PO 40 mg DAILY-AC LIAM Administration Guaifenesin 1,200 mg 08/31/19 21:00 09/01/19 07:56 Mucinex PO 09/03/19 21:01 1,200 mg BID LIAM Administration Hydralazine HCl 10 mg 08/29/19 15:38 08/29/19 20:23 Apresoline SLOW IVP 10 mg Q4H PRN Administration Hypertension Letrozole 2.5 mg 08/28/19 09:00 09/01/19 07:58 Femara PO 2.5 mg DAILY LIAM Administration Levothyroxine Sodium 200 mcg 08/25/19 06:00 09/01/19 05:10 Synthroid PO 200 mcg 0600 LIAM Administration Methylprednisolone Sodium Succinate 40 mg 08/31/19 09:00 09/01/19 07:58 Solu-Medrol IVP 40 mg DAILY [facility] Administration Mometasone Furoate 1 puff 08/25/19 18:30 08/31/19 20:18 Asmanex INH 1 puff 1830 LIAM Administration Potassium Chloride 10 meq 08/26/19 17:00 09/01/19 07:57 Klor-Con 10 PO 10 meq BID-WM LIAM Administration Saccharomyces Boulardii 250 mg 08/25/19 09:00 09/01/19 07:57 Florastor PO 250 mg DAILY LIAM Administration Sotalol HCl 80 mg 08/25/19 09:00 09/01/19 07:57 Betapace PO 80 mg BID LIAM Administration - Exam General Appearance: NAD, awake alert Eye: PERRL ENT: normocephalic atraumatic, moist mucosa Neck: supple, symmetric, no lymphadenopathy Heart: no murmur, no gallops, no rubs Respiratory: no rales, no ronchi, no tachypnea, wheezes Respiratory - other findings: Decreased resp excursion secondary to body habitus Gastrointestinal: soft, non-tender, no rigidity Extremities: 1+ LE edema Skin: no lesions, no rashes Neurological: cranial nerve grossly intact, normal sensation to touch, no focal deficits Musculoskeletal: generalized weakness Psychiatric: normal affect, A&O x 3 Hosp A/P (1) Acute on chronic diastolic CHF (congestive heart failure), NYHA class 3 Code(s): I50.33 - ACUTE ON CHRONIC DIASTOLIC (CONGESTIVE) HEART FAILURE Status : Acute (2) Acute respiratory failure with hypoxia Code(s): J96.01 - ACUTE RESPIRATORY FAILURE WITH HYPOXIA Status: Acute (3) Hypothyroidism Code(s): E03.9 - HYPOTHYROIDISM, UNSPECIFIED Status: Chronic (4) Morbid obesity Code(s): E66.01 - MORBID (SEVERE) OBESITY DUE TO EXCESS CALORIES Status: Chronic (5) Second hand smoke exposure Status: Chronic - Plan Plan: cardiology consultation, recommendations appreciated pulmonology consultation, recommendations appreciated PFT done on 09/01 - mixed restrictive and obstructive pattern per Pulm Improving on IV steroids, de escalate tomorrow if continues to improve cardiomyopathy regimen: -carvedilol -Lisinopril -Lasix CXR does not have overt pulm edema - yet still with worsening shortness of breath and supplemental O2 demands CTA - no PE and small pleural effusions No LE edema Echo with preserved EF and diastolic dysfunction BNP only minorly elevated at 132 Afebrile Normal WBC count inhaled corticosteroids duoneb therapy Q2 prn shortness of breath Supplemental O2 to maintain O2 sat >88% Incentive spirometry ordered Q1 hour while awake Has never been formally diagnosed with emphysema/ COPD >50 pack year hx of second hand smoke Patient interested in sub acute placement to regain her independence/ strength
[2019-09-01] MEDS: Mometasone Furoate 30 PUFF 220 MCG INH SCH (20:40)
[2019-09-01] MEDS: Budesonide 0.5 MG/2 ML NEB INH SCH (20:40)
[2019-09-01] MEDS: Arformoterol 15 MCG/2 ML NEB NEB SCH (20:40)
[2019-09-02] MEDS: guaiFENesin ER 600 MG TAB PO SCH ×2 (03:44→09:21)
[2019-09-02] MEDS: Levothyroxine Sodium 100 MCG TAB PO SCH (05:50)
[2019-09-02 05:52] LABS: Anion Gap 12 mmol/L (10-20); BUN (Urea Nitrogen) 44 mg/dL (9.8-20.1); Calc. Creatinine Clearance 80 mL/min (70-130); Calcium 8.6 mg/dL (7.8-10.44); Carbon Dioxide 34 mmol/L (23-31); Chloride 98 mmol/L (98-107); Estimated GFR-MDRD 30; Glucose 93 mg/dL (83-110); Potassium 4.1 mmol/L (3.5-5.1); Sodium 140 mmol/L (136-145)
[2019-09-02] MEDS: Arformoterol 15 MCG/2 ML NEB NEB SCH ×2 (07:14→19:03)
[2019-09-02] MEDS: Budesonide 0.5 MG/2 ML NEB INH SCH ×2 (07:16→19:06)
[2019-09-02] MEDS: Carvedilol 3.125 MG TAB PO SCH ×2 (09:18→17:30)
[2019-09-02] MEDS: Furosemide 40 MG TAB PO SCH (09:19)
[2019-09-02] MEDS: Escitalopram Oxalate 10 mg Tablet PO SCH (09:19)
[2019-09-02] MEDS: Amlodipine 10 MG TAB PO SCH (09:19)
[2019-09-02] MEDS: Potassium Chloride 10 MEQ TAB PO SCH ×2 (09:21→17:29)
[2019-09-02] MEDS: Sotalol HCl 80 MG TAB PO SCH ×2 (09:22→20:30)
[2019-09-02] MEDS: Saccharomyces boulardii 250 MG CAP PO SCH (09:22)
[2019-09-02] MEDS: Aspirin 325 mg Enteric Coated Tablet PO SCH (09:22)
[2019-09-02] MEDS: Letrozole 2.5 MG TAB PO SCH (09:23)
[2019-09-02] MEDS: Enoxaparin Sodium 40 MG/0.4 ML SYRINGE SC SCH (09:24)
[2019-09-02] MEDS: methylPREDNISolone Sod Succ 40 MG VIAL IVP SCH (09:25)
--- NOTE | 2019-09-02 17:24 | PRG ---
DATE OF SERVICE: 09/02/2019 SUBJECTIVE: Lety Chakraborty has no new complaints. OBJECTIVE: VITAL SIGNS: She is afebrile. Heart rate 62, respiratory rate is 18, oximetry is 93%, and blood pressure 142/68. GENERAL: She sat up for 15 minutes this morning in the chair. LUNGS: She has end-expiratory wheezes that clear with coughing. HEART: Regular rhythm. ABDOMEN: Soft. LABORATORY DATA: Sodium 140, potassium 4.1, chloride 98, bicarb 34, BUN 44, and creatinine 1.68. IMPRESSION: 1. Deconditioning. 2. Metastatic breast cancer. 3. ? asthma. I doubt she has endobronchial lesions causing the obstructive component on her pulmonary function tests. Atelectasis is a huge problem secondary to inactivity. I am encouraged to increase her activity every day. I am not optimistic this will occur because I have discussed this with her every day that I rounded on her. Plan to discuss her care with her oncologist as well. We will continue with nebulized budesonide and Brovana twice a day. Job ID: [id number]
--- NOTE | 2019-09-02 19:03 | PDOC.HOSPP ---
- Subjective Subjective: Seen and examined. Still with trouble breathing, not significantly improved or worsened since yesterday. Patient is coughing, though she is not having much productive sputum/phlegm. All questions answered in detail. Patient will require subacute placement in nursing home facility. - Objective Vital Signs & Weight: Vital Signs (12 hours) Temp Pulse Pulse Pulse Resp BP BP 09/02/19 15:15 98.8 F 62 18 09/02/19 11:40 97.5 F L 62 20 09/02/19 10:29 70 62 135/66 09/02/19 09:22 63 153/76 H 09/02/19 09:19 63 153/76 H 09/02/19 07:45 97.7 F 63 22 H 09/02/19 07:16 65 16 09/02/19 07:14 65 16 BP BP Pulse Ox 09/02/19 15:15 152/73 H 93 L 09/02/19 11:40 142/68 H 92 L 09/02/19 10:29 133/63 09/02/19 09:22 09/02/19 09:19 09/02/19 07:45 153/76 H 92 L 09/02/19 07:16 94 L 09/02/19 07:14 94 L Weight Admit Weight 383 lb 3.2 oz Weight 362 lb 8 oz I&O: 09/01/19 09/02/19 09/03/19 06:59 06:59 06:59 Intake Total 1050 Output Total 800 Balance 250 Result Diagrams: 08/26/19 05:25 09/02/19 04:59 Hospitalist ROS - Review of Systems All other systems reviewed; all pertinent +/- noted in HPI/Subj - Medication Medications: Active Medications Generic Name Dose Route Start Last Admin Trade Name Freq PRN Reason Stop Dose Admin Albuterol/Ipratropium 3 ml 08/29/19 05:03 08/29/19 16:32 Duoneb NEB 3 ml [id number] PRN Administration SOB &/or Wheezing Amlodipine Besylate 10 mg 08/25/19 09:00 09/02/19 09:19 Norvasc PO 10 mg DAILY LIAM Administration Arformoterol Tartrate 15 mcg 09/01/19 18:30 09/02/19 07:14 Brovana NEB 15 mcg BID-RT LIAM Administration Aspirin 325 mg 08/25/19 09:00 09/02/19 09:22 Ecotrin PO 325 mg DAILY LIAM Administration Budesonide 0.5 mg 09/01/19 18:30 09/02/19 07:16 Pulmicort Neb Solution INH 0.5 mg BID-RT LIAM Administration Carvedilol 3.125 mg 08/29/19 17:00 09/02/19 17:30 Coreg PO 3.125 mg BID-WM LIAM Administration Enoxaparin Sodium 40 mg 08/25/19 09:00 09/02/19 09:24 Lovenox SC 40 mg 0900 LIAM Administration Ergocalciferol 1.25 mg 08/28/19 09:00 08/28/19 09:47 Drisdol PO 1.25 mg Q7DAYS [facility] Administration Escitalopram Oxalate 10 mg 08/25/19 09:00 09/02/19 09:19 Lexapro PO 10 mg DAILY [facility] Administration Furosemide 40 mg 08/30/19 07:30 09/02/19 09:19 Lasix PO 40 mg DAILY-AC [facility]AM Administration Guaifenesin 1,200 mg 08/31/19 21:00 09/02/19 09:21 Mucinex PO 09/03/19 21:01 Not Given BID LIAM Hydralazine HCl 10 mg 08/29/19 15:38 08/29/19 20:23 Apresoline SLOW IVP 10 mg Q4H PRN Administration Hypertension Letrozole 2.5 mg 08/28/19 09:00 09/02/19 09:23 Femara PO 2.5 mg DAILY [facility] Administration Levothyroxine Sodium 200 mcg 08/25/19 06:00 09/02/19 05:50 Synthroid PO 200 mcg 0600 [facility] Administration Methylprednisolone Sodium Succinate 40 mg 08/31/19 09:00 09/02/19 09:25 Solu-Medrol IVP 40 mg DAILY [facility] Administration Mometasone Furoate 1 puff 08/25/19 18:30 09/01/19 20:40 Asmanex INH 1 puff 1830 [facility] Administration Potassium Chloride 10 meq 08/26/19 17:00 09/02/19 17:29 Klor-Con 10 PO 10 meq BID-WM [facility] Administration Saccharomyces Boulardii 250 mg 08/25/19 09:00 09/02/19 09:22 Florastor PO 250 mg DAILY [facility] Administration Sodium Chloride 10 ml 10/28/19 21:00 09/02/19 09:25 Flush - Normal Saline IVF 10 ml Q12HR LIAM Administration Sotalol HCl 80 mg 08/25/19 09:00 09/02/19 09:22 Betapace PO 80 mg BID LIAM Administration - Exam General Appearance: NAD, awake alert Eye: anicteric sclera ENT: normocephalic atraumatic, moist mucosa Neck: supple, no lymphadenopathy Heart: no murmur, no gallops, no rubs Respiratory: no rales, rhonchi, wheezes Respiratory - other findings: Decreased resp excursion secondary to body habitus Gastrointestinal: soft, non-tender, no guarding, no rigidity Gastrointestinal - other findings: obese Extremities: 1+ LE edema Skin: no lesions, no rashes Neurological: cranial nerve grossly intact, no focal deficits Musculoskeletal: generalized weakness Psychiatric: normal affect, A&O x 3 Hosp A/P (1) Acute on chronic diastolic CHF (congestive heart failure), NYHA class 3 Code(s): I50.33 - ACUTE ON CHRONIC DIASTOLIC (CONGESTIVE) HEART FAILURE Status : Acute (2) Acute respiratory failure with hypoxia Code(s): J96.01 - ACUTE RESPIRATORY FAILURE WITH HYPOXIA Status: Acute (3) Hypothyroidism Code(s): E03.9 - HYPOTHYROIDISM, UNSPECIFIED Status: Chronic (4) Morbid obesity Code(s): E66.01 - MORBID (SEVERE) OBESITY DUE TO EXCESS CALORIES Status: Chronic (5) Second hand smoke exposure Status: Chronic - Plan Plan: cardiology consultation, recommendations appreciated pulmonology consultation, recommendations appreciated PFT done on 09/01 - mixed restrictive and obstructive pattern per Pulm Pulm concerned with the posibility of endobronchial lesion related to metastatic breast CA, the next step for this would be bronchoscopy, however that is very high risk for this patient with a BMI of >60 Improving on IV steroids, de escalate tomorrow if continues to improve cardiomyopathy regimen: -carvedilol -Lisinopril -Lasix CXR does not have overt pulm edema - yet still with worsening shortness of breath and supplemental O2 demands CTA - no PE and small pleural effusions No LE edema Echo with preserved EF and diastolic dysfunction BNP only minorly elevated at 132 Afebrile Normal WBC count inhaled corticosteroids duoneb therapy Q2 prn shortness of breath Supplemental O2 to maintain O2 sat >88% Incentive spirometry ordered Q1 hour while awake Has never been formally diagnosed with emphysema/ COPD >50 pack year hx of second hand smoke Patient interested in sub acute placement to regain her independence/ strength
[2019-09-02] MEDS: Mometasone Furoate 30 PUFF 220 MCG INH SCH (19:06)
[2019-09-03] MEDS: Levothyroxine Sodium 100 MCG TAB PO SCH (05:10)
[2019-09-03 06:02] LABS: Anion Gap 15 mmol/L (10-20); BUN (Urea Nitrogen) 46 mg/dL (9.8-20.1); Calc. Creatinine Clearance 80 mL/min (70-130); Calcium 8.5 mg/dL (7.8-10.44); Carbon Dioxide 30 mmol/L (23-31); Chloride 98 mmol/L (98-107); Estimated GFR-MDRD 31; Glucose 93 mg/dL (83-110); Potassium 4.1 mmol/L (3.5-5.1); Sodium 139 mmol/L (136-145)
[2019-09-03] MEDS: Arformoterol 15 MCG/2 ML NEB NEB SCH ×2 (07:29→18:58)
[2019-09-03] MEDS: Budesonide 0.5 MG/2 ML NEB INH SCH ×2 (07:31→19:00)
[2019-09-03] MEDS: Potassium Chloride 10 MEQ TAB PO SCH ×2 (08:39→16:38)
[2019-09-03] MEDS: Carvedilol 3.125 MG TAB PO SCH ×2 (08:40→16:38)
[2019-09-03] MEDS: Furosemide 40 MG TAB PO SCH (08:40)
[2019-09-03] MEDS: Enoxaparin Sodium 40 MG/0.4 ML SYRINGE SC SCH (10:23)
[2019-09-03] MEDS: Escitalopram Oxalate 10 mg Tablet PO SCH (10:24)
[2019-09-03] MEDS: Aspirin 325 mg Enteric Coated Tablet PO SCH (10:24)
[2019-09-03] MEDS: Saccharomyces boulardii 250 MG CAP PO SCH (10:24)
[2019-09-03] MEDS: Amlodipine 10 MG TAB PO SCH (10:25)
[2019-09-03] MEDS: Sotalol HCl 80 MG TAB PO SCH ×2 (10:25→22:12)
[2019-09-03] MEDS: Letrozole 2.5 MG TAB PO SCH (10:25)
[2019-09-03] MEDS: methylPREDNISolone Sod Succ 40 MG VIAL IVP SCH (12:00)
--- NOTE | 2019-09-03 13:41 | PDOC.HOSPP ---
- Subjective Subjective: Seen and examined. States that she is breathing better. Cough with some phlegm coming up. Discuss the possibility of endobronchial lesions that pulmonology is concerned with. Oncology consultation requested. - Objective Vital Signs & Weight: Vital Signs (12 hours) Temp Pulse Resp BP Pulse Ox 09/03/19 12:00 98.2 F 56 L 20 131/62 96 09/03/19 10:25 20 L 09/03/19 07:57 97.9 F 20 L 20 136/67 94 L 09/03/19 07:31 76 16 94 L 09/03/19 07:29 76 16 94 L 09/03/19 04:04 95 09/03/19 04:00 97.8 F 63 21 H 130/61 94 L Weight Admit Weight 383 lb 3.2 oz Weight 353 lb 1.6 oz I&O: 09/02/19 09/03/19 09/04/19 06:59 06:59 06:59 Intake Total 320 250 Output Total 700 Balance -380 250 Result Diagrams: 08/26/19 05:25 09/03/19 05:03 Hospitalist ROS - Review of Systems All other systems reviewed; all pertinent +/- noted in HPI/Subj - Medication Medications: Active Medications Generic Name Dose Route Start Last Admin Trade Name Freq PRN Reason Stop Dose Admin Albuterol/Ipratropium 3 ml 08/29/19 05:03 08/29/19 16:32 Duoneb NEB 3 ml [id number] PRN Administration SOB &/or Wheezing Amlodipine Besylate 10 mg 08/25/19 09:00 09/03/19 10:25 Norvasc PO 10 mg DAILY LIAM Administration Arformoterol Tartrate 15 mcg 09/01/19 18:30 09/03/19 07:29 Brovana NEB 15 mcg BID-RT LIAM Administration Aspirin 325 mg 08/25/19 09:00 09/03/19 10:24 Ecotrin PO 325 mg DAILY LIAM Administration Budesonide 0.5 mg 09/01/19 18:30 09/03/19 07:31 Pulmicort Neb Solution INH 0.5 mg BID-RT LIAM Administration Carvedilol 3.125 mg 08/29/19 17:00 09/03/19 08:40 Coreg PO 3.125 mg BID-WM LIAM Administration Enoxaparin Sodium 40 mg 08/25/19 09:00 09/03/19 10:23 Lovenox SC 40 mg 0900 LIAM Administration Ergocalciferol 1.25 mg 08/28/19 09:00 08/28/19 09:47 Drisdol PO 1.25 mg Q7DAYS LIAM Administration Escitalopram Oxalate 10 mg 08/25/19 09:00 09/03/19 10:24 Lexapro PO 10 mg DAILY ILAM Administration Furosemide 40 mg 08/30/19 07:30 09/03/19 08:40 Lasix PO 40 mg DAILY-AC LIAM Administration Hydralazine HCl 10 mg 08/29/19 15:38 08/29/19 20:23 Apresoline SLOW IVP 10 mg Q4H PRN Administration Hypertension Letrozole 2.5 mg 08/28/19 09:00 09/03/19 10:25 Femara PO 2.5 mg DAILY LIAM Administration Levothyroxine Sodium 200 mcg 08/25/19 06:00 09/03/19 05:10 Synthroid PO 200 mcg 0600 LIAM Administration Methylprednisolone Sodium Succinate 40 mg 08/31/19 09:00 09/03/19 12:00 Solu-Medrol IVP 40 mg DAILY LIAM Administration Mometasone Furoate 1 puff 08/25/19 18:30 09/02/19 19:06 Asmanex INH 1 puff 1830 LIAM Administration Potassium Chloride 10 meq 08/26/19 17:00 09/03/19 08:39 Klor-Con 10 PO 10 meq BID-WM LIAM Administration Saccharomyces Boulardii 250 mg 08/25/19 09:00 09/03/19 10:24 Florastor PO 250 mg DAILY LIAM Administration Sodium Chloride 10 ml 09/01/19 21:00 09/03/19 10:25 Flush - Normal Saline IVF 10 ml Q12HR LIAM Administration Sotalol HCl 80 mg 08/25/19 09:00 09/03/19 10:25 Betapace PO 80 mg BID LIAM Administration - Exam General Appearance: NAD, awake alert Eye: anicteric sclera ENT: normocephalic atraumatic, moist mucosa Neck: supple, symmetric, no lymphadenopathy Heart: no murmur, no gallops, no rubs Respiratory: no rales, normal chest expansion, no tachypnea, rhonchi, wheezes Gastrointestinal: soft, non-tender, normal bowel sounds, no guarding, no rigidity Gastrointestinal - other findings: Obese Extremities: 1+ LE edema Skin: no lesions, no rashes Neurological: cranial nerve grossly intact, normal sensation to touch, no focal deficits Musculoskeletal: generalized weakness Psychiatric: normal affect, A&O x 3 Hosp A/P (1) Acute on chronic diastolic CHF (congestive heart failure), NYHA class 3 Code(s): I50.33 - ACUTE ON CHRONIC DIASTOLIC (CONGESTIVE) HEART FAILURE Status : Acute (2) Acute respiratory failure with hypoxia Code(s): J96.01 - ACUTE RESPIRATORY FAILURE WITH HYPOXIA Status: Acute (3) Hypothyroidism Code(s): E03.9 - HYPOTHYROIDISM, UNSPECIFIED Status: Chronic (4) Morbid obesity Code(s): E66.01 - MORBID (SEVERE) OBESITY DUE TO EXCESS CALORIES Status: Chronic (5) Second hand smoke exposure Status: Chronic - Plan Plan: Med/ telemetry Oncology consultation, recommendations appreciated cardiology consultation, recommendations appreciated pulmonology consultation, recommendations appreciated PFT done on 09/01 - mixed restrictive and obstructive pattern per Pulm Pulm concerned with the possibility of endobronchial lesion related to metastatic breast CA, the next step for this would be bronchoscopy, however that is very high risk for this patient with a BMI of >60 Improving on IV steroids, de escalate tomorrow if continues to improve cardiomyopathy regimen: -carvedilol -Lisinopril -Lasix CXR does not have overt pulm edema - yet still with worsening shortness of breath and supplemental O2 demands CTA - no PE and small pleural effusions Echo with preserved EF and diastolic dysfunction BNP only minorly elevated at 132 Afebrile Normal WBC count inhaled corticosteroids duoneb therapy Q2 prn shortness of breath Supplemental O2 to maintain O2 sat >88% Incentive spirometry ordered Q1 hour while awake Has never been formally diagnosed with emphysema/ COPD >50 pack year hx of second hand smoke Patient interested in sub acute placement to regain her independence/ strength
--- NOTE | 2019-09-03 15:51 | PRG ---
DATE OF SERVICE: 09/03/2019 SUBJECTIVE: Ms. Chakraborty has really not been out of bed. She feels about the same. She is complaining of chest congestion. I have again emphasized the importance of spending time out of bed. I discussed Ms. Chakraborty with her oncologist. Apparently, her history is of one of severe in activity. OBJECTIVE: VITAL SIGNS: She is afebrile. Heart rate is 56, respiratory rate is 20, oximetry is 96% on 2 L, blood pressure 131/62. LUNGS: Remarkable for mild rhonchi bilaterally that clear with coughing. HEART: Regular rhythm. ABDOMEN: Soft. IMPRESSION: 1. Retained secretions and atelectasis. 2. ? asthma. 3. Deconditioning. 4. Life-threatening obesity. 5. Stage IV breast cancer. 6. Extreme deconditioning. I have little else to offer at this time. We will sign off. Job ID: [id number]
[2019-09-03] MEDS: Mometasone Furoate 30 PUFF 220 MCG INH SCH (19:00)
[2019-09-04 05:04] LABS: Anion Gap 12 mmol/L (10-20); BUN (Urea Nitrogen) 50 mg/dL (9.8-20.1); Calc. Creatinine Clearance 80 mL/min (70-130); Calcium 8.4 mg/dL (7.8-10.44); Carbon Dioxide 34 mmol/L (23-31); Chloride 100 mmol/L (98-107); Estimated GFR-MDRD 31; Glucose 115 mg/dL (83-110); Potassium 4.1 mmol/L (3.5-5.1); Sodium 142 mmol/L (136-145)
[2019-09-04] MEDS: Levothyroxine Sodium 100 MCG TAB PO SCH (05:10)
[2019-09-04] MEDS: Arformoterol 15 MCG/2 ML NEB NEB SCH ×2 (06:48→19:17)
[2019-09-04] MEDS: Budesonide 0.5 MG/2 ML NEB INH SCH ×2 (06:52→19:20)
[2019-09-04] MEDS: Furosemide 40 MG TAB PO SCH (07:38)
[2019-09-04] MEDS: Potassium Chloride 10 MEQ TAB PO SCH ×2 (07:38→16:38)
[2019-09-04] MEDS: Carvedilol 3.125 MG TAB PO SCH ×2 (07:38→16:38)
--- NOTE | 2019-09-04 09:38 | PFT ---
PATIENT HISTORY: HEIGHT: 65 IN WEIGHT: 360 SMOKER: NO HOW LONG: NA PACKS PER DAY: PRODUCTIVE COUGH: LUNG DISEASE: PHYSICIAN INTERPRETATION FINAL REPORT: Patient had good effort and good cooperation. FVC 1.22 (40%), FEV1 0.62 (27%), FEV1/FVC 0.51. The FEV1 and FVC are severely reduced. That being said, the ratio is only mildly reduced. This suggest that the patient has a severe ventilatory impairment that likely comes form a primarily restrictive process, with likely superimposed obstructive lung disease. Following the administration of a bronchodilator, there is a near significant decline in the the FVC and FEV1. IMPRESSION: Overall, these pulmonary function studies are most suggestive of severe restrictive process with superimposed obstructive lung disease, that doesn't improve following the administration of bronchodilator. Clinical and radiographic correlation are mandatory as these are in-patient studies. Crystal Cutter: LESLIE Audit Director: LESLIE COCHRAN
[2019-09-04] MEDS: Amlodipine 10 MG TAB PO SCH (10:19)
[2019-09-04] MEDS: Enoxaparin Sodium 40 MG/0.4 ML SYRINGE SC SCH (10:21)
[2019-09-04] MEDS: Aspirin 325 mg Enteric Coated Tablet PO SCH (10:21)
[2019-09-04] MEDS: Ergocalciferol 1.25 MG(50,000 UNITS) CAP PO SCH (10:21)
[2019-09-04] MEDS: Escitalopram Oxalate 10 mg Tablet PO SCH (10:21)
[2019-09-04] MEDS: Letrozole 2.5 MG TAB PO SCH (10:22)
[2019-09-04] MEDS: methylPREDNISolone Sod Succ 40 MG VIAL IVP SCH (10:22)
[2019-09-04] MEDS: Sotalol HCl 80 MG TAB PO SCH ×2 (10:22→20:27)
[2019-09-04] MEDS: Saccharomyces boulardii 250 MG CAP PO SCH (10:22)
[2019-09-04 15:04] VITALS: BMI 58.8
--- NOTE | 2019-09-04 15:38 | PDOC.HOSPP ---
- Subjective Subjective: Seen and examined. Patient states that she is starting to feel better. Feel like she's getting more air. So requiring supplemental oxygen to maintain O2 saturation's. Still with wheezing. Her wheezing has gotten better over the past several days. Patient will need detention unit placement. - Objective Vital Signs & Weight: Vital Signs (12 hours) Temp Pulse Resp BP BP Pulse Ox 09/04/19 11:50 98.3 F 63 18 159/74 H 94 L 09/04/19 10:22 62 09/04/19 10:19 63 132/62 09/04/19 07:29 97.5 F L 62 18 155/70 H 93 L 09/04/19 06:53 94 L 09/04/19 06:52 62 20 94 L 09/04/19 06:48 62 20 94 L 09/04/19 04:00 97.4 F L 61 19 138/65 94 L Weight Admit Weight 383 lb 3.2 oz Weight 353 lb 7 oz I&O: 09/03/19 09/04/19 09/05/19 06:59 06:59 06:59 Intake Total 320 735 Output Total 700 1050 Balance -380 -315 Result Diagrams: 08/26/19 05:25 09/04/19 04:07 Hospitalist ROS - Review of Systems All other systems reviewed; all pertinent +/- noted in HPI/Subj - Medication Medications: Active Medications Generic Name Dose Route Start Last Admin Trade Name Freq PRN Reason Stop Dose Admin Albuterol/Ipratropium 3 ml 08/29/19 05:03 08/29/19 16:32 Duoneb NEB 3 ml [id number] PRN Administration SOB &/or Wheezing Amlodipine Besylate 10 mg 08/25/19 09:00 09/04/19 10:19 Norvasc PO 10 mg DAILY LIAM Administration Arformoterol Tartrate 15 mcg 09/01/19 18:30 09/04/19 06:48 Brovana NEB 15 mcg BID-RT LIAM Administration Aspirin 325 mg 08/25/19 09:00 09/04/19 10:21 Ecotrin PO 325 mg DAILY LIAM Administration Budesonide 0.5 mg 09/01/19 18:30 09/04/19 06:52 Pulmicort Neb Solution INH 0.5 mg BID-RT LIAM Administration Carvedilol 3.125 mg 08/29/19 17:00 09/04/19 07:38 Coreg PO 3.125 mg BID-WM LIAM Administration Enoxaparin Sodium 40 mg 08/25/19 09:00 09/04/19 10:21 Lovenox SC 40 mg 0900 LIAM Administration Ergocalciferol 1.25 mg 08/28/19 09:00 09/04/19 10:21 Drisdol PO 1.25 mg Q7DAYS LIAM Administration Escitalopram Oxalate 10 mg 08/25/19 09:00 09/04/19 10:21 Lexapro PO 10 mg DAILY LIAM Administration Furosemide 40 mg 08/30/19 07:30 09/04/19 07:38 Lasix PO 40 mg DAILY-AC LIAM Administration Hydralazine HCl 10 mg 08/29/19 15:38 08/29/19 20:23 Apresoline SLOW IVP 10 mg Q4H PRN Administration Hypertension Letrozole 2.5 mg 08/28/19 09:00 09/04/19 10:22 Femara PO 2.5 mg DAILY LIAM Administration Levothyroxine Sodium 200 mcg 08/25/19 06:00 09/04/19 05:10 Synthroid PO 200 mcg 0600 LIAM Administration Methylprednisolone Sodium Succinate 40 mg 08/31/19 09:00 09/04/19 10:22 Solu-Medrol IVP 40 mg DAILY LIAM Administration Mometasone Furoate 1 puff 08/25/19 18:30 09/03/19 19:00 Asmanex INH 1 puff 1830 LIAM Administration Potassium Chloride 10 meq 08/26/19 17:00 09/04/19 07:38 Klor-Con 10 PO 10 meq BID- LIAM Administration Saccharomyces Boulardii 250 mg 08/25/19 09:00 09/04/19 10:22 Florastor PO 250 mg DAILY LIAM Administration Sodium Chloride 10 ml 09/01/19 21:00 09/04/19 10:23 Flush - Normal Saline IVF 10 ml Q12HR LIAM Administration Sotalol HCl 80 mg 08/25/19 09:00 09/04/19 10:22 Betapace PO 80 mg BID LIAM Administration - Exam General Appearance: NAD Eye: PERRL, anicteric sclera ENT: normocephalic atraumatic, moist mucosa Neck: supple, symmetric, no lymphadenopathy Heart: no murmur, no gallops, no rubs Respiratory: CTAB, no wheezes, no rales, no ronchi, no tachypnea Gastrointestinal: soft, non-tender, no guarding, no rigidity Extremities: no clubbing, no edema Skin: no rashes Neurological: cranial nerve grossly intact, normal sensation to touch, no focal deficits Musculoskeletal: generalized weakness Psychiatric: normal affect Hosp A/P (1) Acute on chronic diastolic CHF (congestive heart failure), NYHA class 3 Code(s): I50.33 - ACUTE ON CHRONIC DIASTOLIC (CONGESTIVE) HEART FAILURE Status : Acute (2) Acute respiratory failure with hypoxia Code(s): J96.01 - ACUTE RESPIRATORY FAILURE WITH HYPOXIA Status: Acute (3) Hypothyroidism Code(s): E03.9 - HYPOTHYROIDISM, UNSPECIFIED Status: Chronic (4) Morbid obesity Code(s): E66.01 - MORBID (SEVERE) OBESITY DUE TO EXCESS CALORIES Status: Chronic (5) Second hand smoke exposure Status: Chronic - Plan Plan: Med/ telemetry Oncology consultation, recommendations appreciated cardiology consultation, recommendations appreciated pulmonology consultation, recommendations appreciated PFT done on 09/01 - mixed restrictive and obstructive pattern per Pulm Pulm concerned with the possibility of endobronchial lesion related to metastatic breast CA, the next step for this would be bronchoscopy, however that is very high risk for this patient with a BMI of >60 Improving on IV steroids, remains wheezy and rhonchi R > L - de escalate tomorrow if continues to improve cardiomyopathy regimen: -carvedilol -Lisinopril -Lasix CXR does not have overt pulm edema - yet still with worsening shortness of breath and supplemental O2 demands CTA - no PE and small pleural effusions Echo with preserved EF and diastolic dysfunction BNP only minorly elevated at 132 Afebrile Normal WBC count inhaled corticosteroids duoneb therapy Q2 prn shortness of breath Supplemental O2 to maintain O2 sat >88% Incentive spirometry ordered Q1 hour while awake Has never been formally diagnosed with emphysema/ COPD >50 pack year hx of second hand smoke Patient interested in sub acute placement to regain her independence/ strength
--- NOTE | 2019-09-04 15:47 | CON ---
DATE OF CONSULTATION: REASON FOR CONSULTATION: Breast cancer. HISTORY OF PRESENT ILLNESS: Ms. Chakraborty is a morbidly obese female, who was diagnosed with metastatic ER positive breast cancer in 2014, while living in [place]. She underwent treatment with weekly Taxol and radiation to her pelvis, then was placed on letrozole and Ibrance. Ibrance was stopped due to financial reasons, but she has been on letrozole for the past several years. She is followed by Dr. Ortiz. She has been lost to followup for over a year and recently saw Dr. Ortiz on August 18. She had also been off multiple blood pressure medicines and not seen her PCP in quite some time. She was complaining of some congestion, but no shortness of breath, and no new bone pain. The plan was to re-stage her, continue letrozole, and resume Zometa. Unfortunately, she presented to the emergency room with worsening shortness of breath and has been here for the past 10 days. She had a CT scan of her chest, which showed small bilateral pleural effusions with adjacent atelectasis. There was a 1.2 cm area of nodularity in the left hilar region concerning for an endobronchial lesion. Dr. Neff was consulted and feels that it is not a lesion. She does have atelectasis secondary to morbid obesity and inactivity. In fact, she has a history of being wheelchair bound and homebound. She has improved over the last week and is apparently ready to go to a halfway unit. The patient was seen at bedside. She denies any complaints at this time. She has not been out of bed. PAST MEDICAL HISTORY: 1. 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 2. History of recurrent malignant right pleural effusion, last thoracentesis in 2015. 3. Hypothyroidism. 4. Diabetes. 5. Hypertension. 6. Atrial fibrillation. 7. Hyperlipidemia. 8. Anxiety and depression. 9. Noncompliance due to transportation issues and immobility. PAST SURGICAL HISTORY: 1. Left breast excision. 2. Thoracentesis in 2016. 3. Punch biopsy. 4. MediPort placement. ALLERGIES: PENICILLIN. HOME MEDICATIONS: 1. Amlodipine. 2. Aspirin. 3. Vitamin D. 4. Citalopram. 5. Flovent. 6. Letrozole. 7. Synthroid. 8. Sotalol. FAMILY HISTORY: Mother had colon cancer at the age of 68. Father had esophageal cancer at 75. Brother has heart disease and stroke. SOCIAL HISTORY: Single, 2 children. No alcohol, tobacco, or illicit drug use. REVIEW OF SYSTEMS: Positive for fatigue and cough. PHYSICAL EXAMINATION: VITAL SIGNS: Temperature 97.5, pulse is 62, respiratory rate 18, BP is 155/70. She is 93% on 2 L. GENERAL: This is an obese female, in no acute distress. HEENT: Normocephalic and atraumatic. Pupils are equal and reactive to light. NECK: Supple. CV: Regular rate and rhythm. LUNGS: She has expiratory wheeze anteriorly. ABDOMEN: Obese. Bowel sounds are positive. EXTREMITIES: No clubbing or cyanosis. SKIN: No rash. HEMATOLOGIC: No petechiae or purpura. NEUROLOGIC: Nonfocal. PERTINENT LABS AND X-RAYS: Current WBCs 8.3, hemoglobin 10.3, hematocrit 33.2, platelet counts 251,000, 66% neutrophils, 21% lymphocytes. Sodium is 142, potassium 4.1, chloride 100, CO2 is 34, BUN is 50, creatinine 1.64, calcium 8.4, total bilirubin is 1, AST is 19, ALT is 8, alkaline phosphatase is 87, serum total protein is 9, albumin 3.9, globulin 5.1. Radiology, per HPI. ASSESSMENT: 1. Metastatic breast cancer. 2. Retained secretions and atelectasis, likely secondary to obesity and deconditioning. DISCUSSION: The patient has been compliant with taking her letrozole. She was due for a CT scan of her abdomen and pelvis this month, however, was hospitalized, so the scan will be rescheduled. I agree with halfway placement. It is unclear if she has endobronchial lesion, although Pulmonology does not feel that she does. The plan would be to continue letrozole to reschedule her CT scan in the outpatient setting and have her follow up in our clinic. Case has been discussed with Dr. Ortiz. Thank you for the consult. We will sign off. Job ID: [id number]
[2019-09-04] MEDS: Mometasone Furoate 30 PUFF 220 MCG INH SCH (19:20)
[2019-09-05 05:06] LABS: Anion Gap 11 mmol/L (10-20); BUN (Urea Nitrogen) 45 mg/dL (9.8-20.1); Calc. Creatinine Clearance 72 mL/min (70-130); Calcium 8.4 mg/dL (7.8-10.44); Carbon Dioxide 35 mmol/L (23-31); Chloride 99 mmol/L (98-107); Estimated GFR-MDRD 28; Glucose 95 mg/dL (83-110); Potassium 4.1 mmol/L (3.5-5.1); Sodium 141 mmol/L (136-145)
[2019-09-05] MEDS: Levothyroxine Sodium 100 MCG TAB PO SCH (05:53)
[2019-09-05] MEDS: Budesonide 0.5 MG/2 ML NEB INH SCH (06:38)
[2019-09-05] MEDS: Arformoterol 15 MCG/2 ML NEB NEB SCH (06:38)
[2019-09-05] MEDS: Furosemide 40 MG TAB PO SCH (07:35)
[2019-09-05] MEDS: Potassium Chloride 10 MEQ TAB PO SCH (07:35)
[2019-09-05] MEDS: Carvedilol 3.125 MG TAB PO SCH (09:23)
[2019-09-05] MEDS: Aspirin 325 mg Enteric Coated Tablet PO SCH (09:26)
[2019-09-05] MEDS: Amlodipine 10 MG TAB PO SCH (09:26)
[2019-09-05] MEDS: Enoxaparin Sodium 40 MG/0.4 ML SYRINGE SC SCH (09:26)
[2019-09-05] MEDS: Escitalopram Oxalate 10 mg Tablet PO SCH (09:26)
[2019-09-05] MEDS: Saccharomyces boulardii 250 MG CAP PO SCH (09:26)
[2019-09-05] MEDS: methylPREDNISolone Sod Succ 40 MG VIAL IVP SCH (09:27)
[2019-09-05] MEDS: Sotalol HCl 80 MG TAB PO SCH (09:27)
[2019-09-05] MEDS: Letrozole 2.5 MG TAB PO SCH (09:27)
[2019-09-05 11:19] VITALS: BP 136/66; TEMP 97.5
--- NOTE | 2019-09-05 15:09 | PDOC.HOSPP ---
- Subjective Subjective: Seen and examined. Pulm status improving, though still with wheezing and requiring O2. Patient planned for going to SNF. All questions answered in detail. Patient happy with plan of care. - Objective Vital Signs & Weight: Vital Signs (12 hours) Temp Pulse Resp BP BP BP Pulse Ox 09/05/19 11:17 97.5 F L 61 18 136/66 94 L 09/05/19 09:26 63 128/59 L 09/05/19 07:29 97.6 F 58 L 16 143/65 H 93 L 09/05/19 06:42 95 09/05/19 06:38 60 20 09/05/19 04:00 98.2 F 58 L 18 141/66 H 94 L Weight Admit Weight 383 lb 3.2 oz Weight 352 lb 6.4 oz I&O: 09/04/19 09/05/19 09/06/19 06:59 06:59 06:59 Intake Total 735 1320 Output Total 1050 800 Balance -315 520 Result Diagrams: 08/26/19 05:25 09/05/19 04:12 Radiology Reviewed by me: Yes Hospitalist ROS - Review of Systems All other systems reviewed; all pertinent +/- noted in HPI/Subj - Exam General Appearance: NAD, awake alert Eye: PERRL ENT: normocephalic atraumatic, moist mucosa Neck: supple, symmetric, no lymphadenopathy Heart: no murmur, no gallops, no rubs Respiratory: no rales, normal chest expansion, no tachypnea, rhonchi, wheezes Gastrointestinal: soft, non-tender, non-distended, no guarding, no rigidity Extremities: 1+ LE edema Skin: no lesions, no rashes Neurological: cranial nerve grossly intact, normal sensation to touch Musculoskeletal: generalized weakness Psychiatric: normal affect, A&O x 3 Hosp A/P (1) Acute on chronic diastolic CHF (congestive heart failure), NYHA class 3 Code(s): I50.33 - ACUTE ON CHRONIC DIASTOLIC (CONGESTIVE) HEART FAILURE Status : Acute (2) Acute respiratory failure with hypoxia Code(s): J96.01 - ACUTE RESPIRATORY FAILURE WITH HYPOXIA Status: Acute (3) Hypothyroidism Code(s): E03.9 - HYPOTHYROIDISM, UNSPECIFIED Status: Chronic (4) Morbid obesity Code(s): E66.01 - MORBID (SEVERE) OBESITY DUE TO EXCESS CALORIES Status: Chronic (5) Second hand smoke exposure Status: Chronic - Plan Plan: Med/ telemetry, D/c planning to SNF Oncology consultation, recommendations appreciated cardiology consultation, recommendations appreciated pulmonology consultation, recommendations appreciated PFT done on 09/01 - mixed restrictive and obstructive pattern per Pulm Pulm concerned with the possibility of endobronchial lesion related to metastatic breast CA, the next step for this would be bronchoscopy, however that is very high risk for this patient with a BMI of >60 On oral steroids, will wean in SNF cardiomyopathy regimen: -carvedilol -Lisinopril -Lasix CXR does not have overt pulm edema - yet still with worsening shortness of breath and supplemental O2 demands CTA - no PE and small pleural effusions Echo with preserved EF and diastolic dysfunction BNP only minorly elevated at 132 Afebrile Normal WBC count inhaled corticosteroids duoneb therapy Q2 prn shortness of breath Supplemental O2 to maintain O2 sat >88% Incentive spirometry ordered Q1 hour while awake Has never been formally diagnosed with emphysema/ COPD >50 pack year hx of second hand smoke Patient interested in sub acute placement to regain her independence/ strength
[2019-09-06] MEDS ORDERED: predniSONE 20 MG TAB PO SCH (08:00)
== END 2019-09-05 14:18 | DRG 291 ==
LOC: ERS 21:16 → 2NO 08-25 03:37
PROVIDERS: ADMIT Internal Medicine; ATTEND Internal Medicine
PROC: 3E0234Z Introduction of Serum, Toxoid and Vaccine into Muscle, Percutaneous Approach (ICD-10-PCS; principal; 2019-08-25)
PROC: 3E02340 Introduction of Influenza Vaccine into Muscle, Percutaneous Approach (ICD-10-PCS; 2019-08-25)
DX: I13.0 Hypertensive heart and chronic kidney disease with heart failure and stage 1 through stage 4 chronic kidney disease, or unspecified chronic kidney disease (principal); J96.01 Acute respiratory failure with hypoxia; I50.33 Acute on chronic diastolic (congestive) heart failure; Z68.44 Body mass index [BMI] 60.0-69.9, adult; N17.9 Acute kidney failure, unspecified; E03.9 Hypothyroidism, unspecified; E78.00 Pure hypercholesterolemia, unspecified; E66.01 Morbid (severe) obesity due to excess calories; Z77.22 Contact with and (suspected) exposure to environmental tobacco smoke (acute) (chronic); I48.0 Paroxysmal atrial fibrillation; N18.9 Chronic kidney disease, unspecified; F41.9 Anxiety disorder, unspecified; F32.9 Major depressive disorder, single episode, unspecified; E11.22 Type 2 diabetes mellitus with diabetic chronic kidney disease; C50.912 Malignant neoplasm of unspecified site of left female breast; Z23 Encounter for immunization; Z88.0 Allergy status to penicillin; Z79.899 Other long term (current) drug therapy; Z79.82 Long term (current) use of aspirin; Z79.890 Hormone replacement therapy; Z91.19 Patient's noncompliance with other medical treatment and regimen
CPT/HCPCS: 36415; 71045; 71046; 71275; 80048; 80053; 81003; 81015; 83735; 83880; 84439; 84443; 84484; 85025; 85379; 90471; 90662; 90670; 93005; 93306; 93798; 94060; 94640; 94727; 96365; 96375; G0008; G0009; J0360; J1650; J1940; J1956; J2920; J7620; J7626; Q9966

== ENCOUNTER 2019-11-14 14:33 | Inpatient (IN) | payer MEDICARE ==
[2019-11-14 15:08] LABS: #Basophils 0.1 thou/uL (0.0-0.2); #Eosinphils 0.1 thou/uL (0.0-0.7); #Lymphocytes 1.7 thou/uL (1.20-3.40); #Monocytes 0.8 thou/uL (0.11-0.59); #Neutrophils 8.2 thou/uL (1.40-6.50); %Basophils 0.5 % (0.0-1.0); %Eosinophils 0.7 % (0.0-10.0); %Lymphocytes 15.7 % (21.0-51.0); %Neutrophils 76.2 % (42.0-75.0); Hemoglobin 12.9 g/dL (12.0-16.0); Mean Corpuscular HGB CONC 30.5 g/dL (32.0-36.0); Mean Corpuscular Hemoglobin 26.7 pg (27.0-31.0); Mean Corpuscular Volume 87.7 fL (78.0-98.0); Mean Platelet Volume 7.5 fL (7.4-10.4); Platelet Count 250 thou/uL (130-400); RBC Distribution Width 18.8 % (11.5-14.5); Red Blood Cell (RBC) Count 4.82 mill/uL (4.20-5.40); White Blood Cell (WBC) Count 10.8 thou/uL (4.8-10.8)
--- NOTE | 2019-11-14 15:18 | RAD ---
Chest one view HISTORY: Dyspnea. COMPARISON: 08/29/2019. FINDINGS: Cardiac silhouette remains predominantly obscured by opacity at the inferior aspect of the left hemithorax that is unchanged in appearance. Pulmonary vasculature remains engorged. Mediastinum is midline with right subclavian Port-A-Cath in place. No evidence of pneumothorax. IMPRESSION: Chronic findings are stable, including pulmonary vascular congestion and left hemidiaphra gm elevation
[2019-11-14 15:42] LABS: ALT (SGPT) 29 U/L (8-55); AST (SGOT) 22 U/L (5-34); Albumin 3.4 g/dL (3.4-4.8); Alkaline Phosphatase 83 U/L (40-110); Anion Gap 12 mmol/L (10-20); BUN (Urea Nitrogen) 38 mg/dL (9.8-20.1); Bilirubin, Total 1.4 mg/dL (0.2-1.2); Calc. Creatinine Clearance 0 mL/min (70-130); Calcium 8.5 mg/dL (7.8-10.44); Carbon Dioxide 29 mmol/L (23-31); Chloride 103 mmol/L (98-107); Estimated GFR-MDRD 24; Globulin 3.2 g/dL (2.4-3.5); Glucose 134 mg/dL (83-110); Potassium 4.1 mmol/L (3.5-5.1); Protein, Total 6.6 g/dL (6.0-8.3); Sodium 140 mmol/L (136-145)
[2019-11-14 15:58] LABS: CKMB 1.7 ng/mL (0-6.6)
--- NOTE | 2019-11-14 18:08 | PDOC.HHP ---
Hospitalist HPI - History of Present Illness shortness of breath History of Present Illness: This is a 73 year old female with past medical history of stage IV breast cancer with metastasis to sternum and vertebra s/p ibrance and radiation therapy who presents from home with shortness of breath. The patient states that normally she is short of breath after just walking 30 feet, however over the past two days she has had severe shortness of breath while just getting up to go to the bathroom. She says when she checked her oxygen saturation at home, it was 60-85% but she did not get medical attention. She denies any long distance trips recently. She is not very mobile at baseline. She has chronic 3 pillow orthopnea which has not worsened. She has been drinking 48 ounces of fluid a day and has been eating a low salt diet. She reports weight loss and not weight gain. She denies fevers or chills, runny nose or sore throat. She has a mild productive cough. She reports some chest heaviness. Occasionally it will hurt to take a deep breath and sometimes she will feel clammy, but nothing significant. She denies night sweats. She has noticed increased edema in her lower extremities. The patient was recently admitted to the hospital in August with shortness of breath. She was presumed to have diastolic heart failure and was diuresed with IV lasix. ECHO showed EF 50-55% with diastolic dysfunction. She had PFTS done during that admission as well which showed FEV1 27%, FVC 40% indicative of restrictive process with superimposed COPD. At the time pulmonary felt this could be asthma, but not COPD. Patient was thought to not have an endobronchial lesion and bronchoscopy was not recommended. CTA at that time also ruled out a PE. She was discharged on brovana and inhaled steroids and oral lasix 40 mg. THe patient states that she was discharged to [facility]. Her lasix was discontinued a few weeks ago by the rehab doctor. She was also discharged on prednisone. The patient states that when they tried to wean her off her prednisone her shortness of breath would worsen. ED Course: THe patient was noted to desaturate to 70-80% in the ER. SHe was placed on 15L non-rebreather by EMS. They weaned her to 2L nasal cannula but were unable to wean her further per ER staff. SHe did have a mild troponin elevation of 0.031 and creatinine of 2.06. Chest X ray shows large left pleural effusion. The patient was admitted for further workup. Hospitalist ROS - Review of Systems Constitutional: denies: fever, chills Respiratory: reports: cough Cardiovascular: reports: orthopnea, edema. denies: chest pain, palpitations, paroxysmal noc. dyspnea Gastrointestinal: denies: nausea, vomiting, abdominal pain, diarrhea, constipation Genitourinary: denies: dysuria, frequency Skin: denies: rash, lesions Neurological: denies: weakness, numbness Hospitalist History - Past Medical History Cardiac: reports: CHF, HTN Pulmonary: reports: lung disease Other Medical History: Stage IV Breast cancer on letrozole. Initially diagnosed as stage IV from malignant pleural effusion. ALso had spread to sternum and vertebra. REcently got ibranz + letrozole which helped metastases. Also had radiation to vertebra - Past Surgical History Other Surgical History: Port placement 5 years ago - Family History Other Family History: Colon cancer mother Cancer in father - Social History Alcohol: reports: Occassional (Last drink 10 years ago) Occupation: REtired teacher. Lives with significant other - Exam General Appearance: NAD, awake alert Eye: PERRL, anicteric sclera ENT: normocephalic atraumatic, no oropharyngeal lesions Neck: supple, symmetric Neck - other findings: possible mild JVD Heart: RRR, no murmur, no gallops, no rubs Respiratory: wheezes Gastrointestinal: soft, non-tender, non-distended Extremities - other findings: 3+ LE edema bilaterally Skin: normal turgor, no lesions, no rashes Neurological: cranial nerve grossly intact, normal sensation to touch, no focal deficits, no new deficit Musculoskeletal: normal tone, normal strength, no muscle wasting Psychiatric: normal affect, normal behavior, oriented to person Hospitalist Results - Labs Result Diagrams: 11/14/19 14:54 11/14/19 14:54 Lab results: WBC 10.8 thou/uL (4.8-10.8) 11/14/19 14:54 Hgb 12.9 g/dL (12.0-16.0) 11/14/19 14:54 Hct 42.3 % (36.0-47.0) 11/14/19 14:54 MCV 87.7 fL (78.0-98.0) 11/14/19 14:54 Plt Count 250 thou/uL (130-400) 11/14/19 14:54 Neutrophils % 76.2 % (42.0-75.0) H 11/14/19 14:54 Sodium 140 mmol/L (136-145) 11/14/19 14:54 Potassium 4.1 mmol/L (3.5-5.1) 11/14/19 14:54 Chloride 103 mmol/L (98-107) 11/14/19 14:54 Carbon Dioxide 29 mmol/L (23-31) 11/14/19 14:54 BUN 38 mg/dL (9.8-20.1) H 11/14/19 14:54 Creatinine 2.06 mg/dL (0.6-1.1) H 11/14/19 14:54 Glucose 134 mg/dL (83-110) H 11/14/19 14:54 Lactic Acid 1.6 mmol/L (0.5-2.2) 11/14/19 14:54 Calcium 8.5 mg/dL (7.8-10.44) 11/14/19 14:54 Total Bilirubin 1.4 mg/dL (0.2-1.2) H 11/14/19 14:54 AST 22 U/L (5-34) 11/14/19 14:54 ALT 29 U/L (8-55) 11/14/19 14:54 Alkaline Phosphatase 83 U/L (40-110) 11/14/19 14:54 CK-MB (CK-2) 1.7 ng/mL (0-6.6) 11/14/19 14:54 Troponin I 0.031 ng/mL (< 0.028) H 11/14/19 14:54 B-Natriuretic Peptide 229.5 pg/mL (0-100) H 11/14/19 14:54 Serum Total Protein 6.6 g/dL (6.0-8.3) 11/14/19 14:54 Albumin 3.4 g/dL (3.4-4.8) 11/14/19 14:54 Hospitalist H&P A/P - Plan Plan: CT chest: moderate left pleural effusion with atelectasis, small right pleural effusion This is a 73 year old female with history of breast cancer stage IV with malignant pleural effusion, who presented with new onset hypoxia, found to have large left pleural effusion #Acute hypoxic respiratory failure - possibly secondary to recurrent malignant pleural effusion vs PE Vs heart failure #Elevated troponin - currently on 2L of oxygen. Chest X Ray shows large left pleural effusion. BNP only mildly elevated at 200, patient has been compliant with fluid restriction and low sodium diet. CT chest done shows moderate left pleural effusion and small right pleural effusion - trial of one dose of 40 mg IV lasix and start IV meropenem empirically given penicillin allergy - pulm consult for thoracentesis in am - check ECHO and EKG - d-dimer elevated, but will hold off on anticoagulation for possible PE in case of thoracentesis tomorrow. Check bilateral dopplers to rule out DVT. CTA in 08/2019 was negative for PE - continue oral prednisone, patient states worsening of pulmonary symptoms when weaned off steroids. May have interstitial lung disease? - troponin was mildly elevated, repeat negative #Peripheral edema #History of diastolic CHF - will obtain bilateral dopplers to rule out DVT - repeat ECHO Breast cancer - patient is due for PET scan later this month - continue letrazole Atrial fibrillation - continue sotalol and coreg ERICA on CKD - creatinine up to 2.06 - will obtain renal ultrasound, UA, urine sodium, urine creatinine - trial one dose of 40 mg IV lasix - repeat BMP In am DVT prophylaxis: lovenox Code status: full code
[2019-11-14] MEDS ORDERED: Guaifenesin DM 100-10/5 ML UDCUP PO PRN (18:26)
[2019-11-14] MEDS ORDERED: Acetaminophen 325 MG TAB PO PRN (18:26)
[2019-11-14] MEDS ORDERED: Senokot S 8.6-50 MG TAB PO PRN (18:26)
[2019-11-14 18:29] LABS: Troponin I 0.014 ng/mL (< 0.028)
[2019-11-14] MEDS ORDERED: Mometasone Furoate 30 PUFF 220 MCG INH SCH (18:30)
--- NOTE | 2019-11-14 19:10 | CT ---
CT OF THE CHEST WITHOUT IV CONTRAST INDICATION: Difficulty breathing with history of breast cancer COMPARISON: CTA of the chest dated August 24, [address] the chest, abdomen and pelvis dated 2017 FINDINGS: The lack of IV contrast limits evaluation for lymphadenopathy and malignancy. CHEST: Lungs: There is persistent atelectasis within the left lower lobe with a small to moderate left-sided pleural effusion. Small right pleural effusion persists. The masslike parenchymal changes involving the right lower lobe suspicious for rounded atelectasis is stable. Pleural space: Small moderate left and small right pleural effusion are stable Mediastinum: There are coronary artery and thoracic aortic callus cases. There is a right chest wall port in place. No definite mediastinal lymphadenopathy is grossly evident. There is a stable 9 mm prevascular lymph node Upper abdomen:Cholelithiasis stable prominence of the proximal left renal collecting system likely re lated to chronic UPJ obstruction Osseous structures: Sclerotic lesion involving the left aspect of the sternal body is stable. Thoraco lumbar scoliosis is similar appearing. No acute fracture or subluxation demonstrated. There is scattered degenerative and osteoarthritic changes. Soft tissues:Normal. IMPRESSION: 1. Stable bilateral pleural effusions, [id number] on the left and mild on the right. Persisten t bibasilar atelectasis. 2. Cholelithiasis 3. Stable sclerosis of the sternal body.
[2019-11-14] MEDS ORDERED: Furosemide 40 MG/4 ML VIAL SLOW IVP SCH (20:45)
[2019-11-14 21:15] LABS: Troponin I 0.034 ng/mL (< 0.028)
[2019-11-14] MEDS: Budesonide 0.5 MG/2 ML NEB NEB SCH (22:03)
[2019-11-14] MEDS: Arformoterol 15 MCG/2 ML NEB NEB SCH (22:03)
[2019-11-14] MEDS: Sotalol HCl 80 MG TAB PO SCH (22:17)
[2019-11-14] MEDS: Meropenem 2 GM in Sodium Chloride 0.9% 100 ML IVPB SCH (22:18)
[2019-11-15 04:57] LABS: Hemoglobin 11.3 g/dL (12.0-16.0); Mean Corpuscular HGB CONC 29.7 g/dL (32.0-36.0); Mean Corpuscular Hemoglobin 25.9 pg (27.0-31.0); Mean Corpuscular Volume 87.2 fL (78.0-98.0); Mean Platelet Volume 7.4 fL (7.4-10.4); Platelet Count 239 thou/uL (130-400); RBC Distribution Width 18.3 % (11.5-14.5); Red Blood Cell (RBC) Count 4.38 mill/uL (4.20-5.40); White Blood Cell (WBC) Count 9.9 thou/uL (4.8-10.8)
[2019-11-15 05:10] LABS: Anion Gap 12 mmol/L (10-20); BUN (Urea Nitrogen) 35 mg/dL (9.8-20.1); Calc. Creatinine Clearance 0 mL/min (70-130); Calcium 8.2 mg/dL (7.8-10.44); Carbon Dioxide 33 mmol/L (23-31); Chloride 102 mmol/L (98-107); Estimated GFR-MDRD 25; Glucose 105 mg/dL (83-110); Potassium 4.2 mmol/L (3.5-5.1); Sodium 143 mmol/L (136-145)
[2019-11-15] MEDS: Levothyroxine Sodium 100 MCG TAB PO SCH (05:33)
[2019-11-15 05:46] VITALS: BMI 57.4
[2019-11-15] MEDS: Arformoterol 15 MCG/2 ML NEB NEB SCH ×2 (07:25→19:00)
[2019-11-15] MEDS: Budesonide 0.5 MG/2 ML NEB NEB SCH ×2 (07:29→19:08)
[2019-11-15 08:25] LABS: Bacteria/HPF 4+ HPF (None Seen); Bilirubin Negative (Negative); Blood, Urine 1+ (Negative); Clarity Turbid (Clear); Glucose, Urine (Dipstick) Normal (Negative); Leukocyte 500 Leu/uL (Negative); Nitrite 2+ (Negative); Protein, Urine (Dipstick) Negative (Neg-Trace); Squamous Epithelial 0-3 HPF (0-3); Urobilinogen Normal mg/dL (Less than 2); WBC/HPF Greater than 50 HPF (0-3)
[2019-11-15 08:30] LABS: Urine Culture Reflex Yes Yes
[2019-11-15 08:49] LABS: Creatinine, Urine 46.98 mg/dL (47-110)
[2019-11-15] MEDS ORDERED: Non-Formulary Item 1 EACH (Fluticasone Propionate [Flovent Diskus] 50 MCG) IH SCH (09:00)
[2019-11-15] MEDS: Carvedilol 3.125 MG TAB PO SCH ×2 (09:20→18:33)
[2019-11-15] MEDS: Aspirin 325 mg Enteric Coated Tablet PO SCH (09:20)
[2019-11-15] MEDS: Amlodipine 10 MG TAB PO SCH (09:20)
[2019-11-15] MEDS: Enoxaparin Sodium 40 MG/0.4 ML SYRINGE SC SCH (09:20)
[2019-11-15] MEDS: predniSONE 20 MG TAB PO SCH (09:20)
[2019-11-15] MEDS: Escitalopram Oxalate 10 mg Tablet PO SCH (09:21)
[2019-11-15] MEDS: Sotalol HCl 80 MG TAB PO SCH ×2 (09:21→20:23)
--- NOTE | 2019-11-15 09:48 | ULT ---
EXAM: Bilateral lower extremity venous ultrasound HISTORY: Bilateral lower extremity edema COMPARISON: None TECHNIQUE: Multiplanar grayscale and color Doppler images were obtained in a bilateral lower extremit y venous ultrasound. Spectral analysis of the Doppler waveforms were performed. FINDINGS: The bilateral common femoral vein, profunda femoral veins, superficial femoral veins, and p opliteal veins are normal in appearance without visible thrombus. These vessels demonstrate normal compression, flow, and augmentation. The bilateral posterior tibial veins, profunda femoral veins and greater saphenous veins are patent w ithout evidence of DVT. Anechoic focus in the left popliteal fossa compatible with a 4.3 x 2.4 x 8.6 cm Johnson's cyst. IMPRESSION: No evidence of DVT in the left or right lower extremity. Anechoic focus in the left popliteal fossa, likely representing a Johnson's cyst
[2019-11-15] MEDS: Letrozole 2.5 MG TAB PO SCH (10:31)
[2019-11-15] MEDS: Meropenem 2 GM in Sodium Chloride 0.9% 100 ML IVPB SCH ×2 (10:31→20:32)
[2019-11-15 12:16] LABS: CKMB 1.6 ng/mL (0-6.6)
--- NOTE | 2019-11-15 13:22 | PDOC.HOSPP ---
- Subjective Encounter Date: 11/15/19 Encounter Time: 10:45 Subjective: No complaint now. Feels better. On O2 via N/C - Objective Vital Signs & Weight: Vital Signs (12 hours) Temp Pulse Resp BP BP Pulse Ox 11/15/19 12:22 97.8 F 66 21 H 105/62 93 L 11/15/19 08:05 97.4 F L 70 17 107/60 95 11/15/19 07:25 89 22 H 93 L 11/15/19 03:56 97.4 F L 91 18 121/63 92 L Weight Weight 345 lb I&O: 11/14/19 11/15/19 11/16/19 06:59 06:59 06:59 Intake Total 240 Output Total 900 Balance -660 Result Diagrams: 11/15/19 04:20 11/15/19 04:20 Additional Labs: Accuchecks 11/15/19 11/15/19 10:43 05:40 POC Glucose 100 103 Hospitalist ROS - Medication Medications: Active Medications Generic Name Dose Route Start Last Admin Trade Name Freq PRN Reason Stop Dose Admin Albuterol/Ipratropium 3 ml 11/14/19 18:26 11/15/19 07:29 Duoneb NEB 3 ml Q2H PRN Administration SOB &/or Wheezing Amlodipine Besylate 10 mg 11/15/19 09:00 11/15/19 09:20 Norvasc PO 10 mg DAILY LIAM Administration Arformoterol Tartrate 15 mcg 11/14/19 18:30 11/15/19 07:25 Brovana NEB 15 mcg BID-RT LIAM Administration Aspirin 325 mg 11/15/19 09:00 11/15/19 09:20 Ecotrin PO 325 mg DAILY LIAM Administration Budesonide 0.5 mg 11/14/19 18:30 11/15/19 07:29 Pulmicort Neb Solution NEB 0.5 mg BID-RT LIAM Administration Carvedilol 3.125 mg 11/15/19 08:00 11/15/19 09:20 Coreg PO 3.125 mg BID-WM LIAM Administration Enoxaparin Sodium 40 mg 11/15/19 09:00 11/15/19 09:20 Lovenox SC 40 mg 0900 LIAM Administration Escitalopram Oxalate 10 mg 11/15/19 09:00 11/15/19 09:21 Lexapro PO 10 mg DAILY LIAM Administration Meropenem 2 gm/ Sodium 100 mls @ 100 mls/hr 11/14/19 21:00 11/15/19 10:31 Chloride IVPB 100 mls Q12HR LIAM Administration Letrozole 2.5 mg 11/15/19 09:00 11/15/19 10:31 Femara PO 2.5 mg DAILY LIAM Administration Levothyroxine Sodium 200 mcg 11/15/19 06:00 11/15/19 05:33 Synthroid PO 200 mcg 0600 LIAM Administration Prednisone 40 mg 11/15/19 08:00 11/15/19 09:20 Prednisone PO 40 mg QAM-WM LIAM Administration Sodium Chloride 10 ml 11/14/19 21:00 11/15/19 10:31 Flush - Normal Saline IVF 10 ml Q12HR LIAM Administration Sotalol HCl 80 mg 11/14/19 21:00 11/15/19 09:21 Betapace PO 80 mg BID LIAM Administration - Exam Neck: no JVD Heart: irregular Respiratory: no wheezes (Decreased air entry at bases) Gastrointestinal: soft Extremities: 2+ LE edema Neurological: no weakness Psychiatric: normal affect Hosp A/P (1) Acute kidney injury superimposed on CKD Code(s): N17.9 - ACUTE KIDNEY FAILURE, UNSPECIFIED; N18.9 - CHRONIC KIDNEY DISEASE, UNSPECIFIED Status: Acute (2) Breast cancer Status: Acute (3) History of CHF (congestive heart failure) Code(s): Z86.79 - PERSONAL HISTORY OF OTHER DISEASES OF THE CIRCULATORY SYSTEM Status: Acute (4) Acute respiratory failure with hypoxia Code(s): J96.01 - ACUTE RESPIRATORY FAILURE WITH HYPOXIA Status: Acute (5) Morbid obesity Code(s): E66.01 - MORBID (SEVERE) OBESITY DUE TO EXCESS CALORIES Status: Chronic - Plan SOB most likely from pleural effusion.. F/u with pulmonary...Continue current therapy.
--- NOTE | 2019-11-15 16:11 | CON ---
DATE OF CONSULTATION: HISTORY OF PRESENT ILLNESS: Lety Chakraborty is a 73-year-old morbidly obese female, who weighs 157 kg, presented to the ER with shortness of breath, cough, respirations 25, saturations were 98% on non-rebreather, temperature 97, blood pressure 107/71. She says she can barely walk even 50 feet without getting short of breath. She was recently discharged from an assisted living place. She has seen Dr. Neff in our office. It shows severe reduction in both expiratory flows of vital capacity consistent with a mixed obstructive restrictive impairment. She was also seen in August by Dr. Neff. She apparently is a nonsmoker. PAST MEDICAL HISTORY: Pertinent for atrial fibrillation, status post cardioversion, history of breast cancer, status post thoracentesis 6 years ago, left pleural effusion 2 L, chemoradiation, diabetes, hypertension, hypothyroidism, and cardiac arrhythmias. SOCIAL HISTORY: Presently, no alcohol or tobacco abuse. HOME MEDICATIONS: Include; 1. Sotalol 80 twice a day. 2. Asmanex. 3. Synthroid 200. 4. DuoNeb. 5. Lasix 40. 6. Advair Diskus. 7. Celexa 10. 8. Coreg 3.125. 9. Brovana. 10. Amlodipine 10. ALLERGIES: PENICILLIN. REVIEW OF SYSTEMS: Otherwise, unremarkable. PHYSICAL EXAMINATION: VITAL SIGNS: Temperature 97, pulse 66, saturations are 93% on 2 L, respirations 21, and blood pressure 105/62. CHEST: Rhonchi and crackles, left greater than right. CARDIAC: Normal S1 and S2. No gallops. ABDOMEN: No masses. DIAGNOSTIC DATA: BNP is normal. Creatinine is 1.97. Urine is unremarkable. White count is normal, H and H are unremarkable, and platelet count is normal. ASSESSMENT: 1. Left pleural effusion, not large enough for thoracentesis, most of the finding on the CT may be atelectatic changes and maybe some loculated effusion. 2. Severe deconditioning. 3. Breast cancer. 4. Most of her dyspnea is probably secondary to her morbid obesity and severe deconditioning. PLAN: I doubt doing a thoracentesis of any benefit to the patient at this stage. I have discussed the findings with the patient and friend at length. In the meantime, I will continue present neb treatments and supportive care. Consultation note, 70 minutes, 50% direct patient care. Job ID: [id number]
[2019-11-16 04:37] LABS: Anion Gap 13 mmol/L (10-20); BUN (Urea Nitrogen) 35 mg/dL (9.8-20.1); Calc. Creatinine Clearance 76 mL/min (70-130); Carbon Dioxide 29 mmol/L (23-31); Chloride 104 mmol/L (98-107); Estimated GFR-MDRD 30; Glucose 110 mg/dL (83-110); Sodium 142 mmol/L (136-145)
[2019-11-16] MEDS: Mometasone Furoate 120 PUFF 220 MCG INH SCH ×3 (06:23→18:38)
[2019-11-16] MEDS: Levothyroxine Sodium 100 MCG TAB PO SCH (06:23)
[2019-11-16] MEDS: Arformoterol 15 MCG/2 ML NEB NEB SCH (07:29)
[2019-11-16] MEDS: Budesonide 0.5 MG/2 ML NEB NEB SCH (07:31)
[2019-11-16] MEDS: Letrozole 2.5 MG TAB PO SCH (09:31)
[2019-11-16] MEDS: Amlodipine 10 MG TAB PO SCH (09:31)
[2019-11-16] MEDS: Enoxaparin Sodium 40 MG/0.4 ML SYRINGE SC SCH (09:31)
[2019-11-16] MEDS: predniSONE 20 MG TAB PO SCH (09:31)
[2019-11-16] MEDS: Carvedilol 3.125 MG TAB PO SCH ×2 (09:31→16:49)
[2019-11-16] MEDS: Aspirin 325 mg Enteric Coated Tablet PO SCH (09:31)
[2019-11-16] MEDS: Escitalopram Oxalate 10 mg Tablet PO SCH (09:31)
[2019-11-16] MEDS: Meropenem 2 GM in Sodium Chloride 0.9% 100 ML IVPB SCH (09:32)
[2019-11-16] MEDS: Sotalol HCl 80 MG TAB PO SCH ×2 (09:32→21:23)
--- NOTE | 2019-11-16 10:25 | PDOC.HOSPP ---
- Subjective Encounter Date: 11/16/19 Encounter Time: 09:00 Subjective: Feel better. No new complaint. - Objective Vital Signs & Weight: Vital Signs (12 hours) Temp Pulse Resp BP BP Pulse Ox 11/16/19 09:32 89 11/16/19 09:31 89 11/16/19 07:45 98.2 F 66 17 115/61 17 L 11/16/19 07:29 89 18 97 11/16/19 03:29 97.5 F L 79 18 129/61 96 Weight Weight 345 lb I&O: 11/15/19 11/16/19 11/17/19 06:59 06:59 06:59 Intake Total 240 240 Output Total 900 400 Balance -660 -160 Result Diagrams: 11/15/19 04:20 11/16/19 04:02 Additional Labs: Accuchecks 11/16/19 11/15/19 11/15/19 05:35 20:41 17:15 POC Glucose 105 166 H 122 H 11/15/19 10:43 POC Glucose 100 Hospitalist ROS - Medication Medications: Active Medications Generic Name Dose Route Start Last Admin Trade Name Freq PRN Reason Stop Dose Admin Albuterol/Ipratropium 3 ml 11/14/19 18:26 11/15/19 07:29 Duoneb NEB 3 ml Q2H PRN Administration SOB &/or Wheezing Amlodipine Besylate 10 mg 11/15/19 09:00 11/16/19 09:31 Norvasc PO 10 mg DAILY LIAM Administration Arformoterol Tartrate 15 mcg 11/14/19 18:30 11/16/19 07:29 Brovana NEB 15 mcg BID-RT LIAM Administration Aspirin 325 mg 11/15/19 09:00 11/16/19 09:31 Ecotrin PO 325 mg DAILY LIAM Administration Budesonide 0.5 mg 11/14/19 18:30 11/16/19 07:31 Pulmicort Neb Solution NEB 0.5 mg BID-RT LIAM Administration Carvedilol 3.125 mg 11/15/19 08:00 11/16/19 09:31 Coreg PO 3.125 mg BID-WM LIAM Administration Enoxaparin Sodium 40 mg 11/15/19 09:00 11/16/19 09:31 Lovenox SC 40 mg 0900 LIAM Administration Escitalopram Oxalate 10 mg 11/15/19 09:00 11/16/19 09:31 Lexapro PO 10 mg DAILY LIAM Administration Meropenem 2 gm/ Sodium 100 mls @ 100 mls/hr 11/14/19 21:00 11/16/19 09:32 Chloride IVPB 100 mls Q12HR LIAM Administration Letrozole 2.5 mg 11/15/19 09:00 11/16/19 09:31 Femara PO 2.5 mg DAILY LIAM Administration Levothyroxine Sodium 200 mcg 11/15/19 06:00 11/16/19 06:23 Synthroid PO 200 mcg 0600 LIAM Administration Mometasone Furoate 0 puff 11/15/19 18:30 11/16/19 06:23 Asmanex Twisthaler INH Not Given 1830 LIAM Prednisone 40 mg 11/15/19 08:00 11/16/19 09:31 Prednisone PO 40 mg QAM-WM LIAM Administration Sodium Chloride 10 ml 11/14/19 21:00 11/16/19 09:32 Flush - Normal Saline IVF 10 ml Q12HR LIAM Administration Sotalol HCl 80 mg 11/14/19 21:00 11/16/19 09:32 Betapace PO 80 mg BID LIAM Administration - Exam Neck: no JVD Heart: irregular Respiratory: rhonchi Gastrointestinal: soft Extremities: 1+ LE edema Psychiatric: normal affect Hosp A/P (1) Acute kidney injury superimposed on CKD Code(s): N17.9 - ACUTE KIDNEY FAILURE, UNSPECIFIED; N18.9 - CHRONIC KIDNEY DISEASE, UNSPECIFIED Status: Acute (2) Breast cancer Status: Resolved (3) History of CHF (congestive heart failure) Code(s): Z86.79 - PERSONAL HISTORY OF OTHER DISEASES OF THE CIRCULATORY SYSTEM Status: Acute (4) Acute respiratory failure with hypoxia Code(s): J96.01 - ACUTE RESPIRATORY FAILURE WITH HYPOXIA Status: Acute (5) Morbid obesity Code(s): E66.01 - MORBID (SEVERE) OBESITY DUE TO EXCESS CALORIES Status: Chronic - Plan SOB most likely from pleural effusion.. F/u with pulmonary...Continue current therapy. Neprology to see.
--- NOTE | 2019-11-16 13:00 | PRG ---
DATE OF SERVICE: 11/16/2019 SUBJECTIVE: She says she is still short of breath and weak. OBJECTIVE: VITAL SIGNS: Temperature 98, pulse 76, respirations 20, saturations are only 91 on 2 L, blood pressure 134/77. CHEST: Decreased breath sounds. No wheezing. CARDIAC: Normal S1 and S2. No gallops. ABDOMEN: No masses. LABORATORY DATA: Creatinine 1.68. ASSESSMENT AND PLAN: Morbid obesity. Left pleural effusion, chronic. Metastatic breast cancer. Severe deconditioning. Awaiting input from Oncology. Pulmonary espino, otherwise once again there is no need to tap the chest, need to continue broad-spectrum antibiotics. She is encouraged to lose weight. Job ID: [id number]
[2019-11-16] MEDS ORDERED: Doxycycline 100 MG CAP PO SCH (13:15)
[2019-11-16] MEDS ORDERED: Furosemide 20 MG TAB PO SCH (18:00)
[2019-11-16] MEDS: Doxycycline 100 MG CAP PO SCH (21:23)
[2019-11-17 04:48] LABS: ALT (SGPT) 23 U/L (8-55); AST (SGOT) 17 U/L (5-34); Albumin 2.9 g/dL (3.4-4.8); Alkaline Phosphatase 60 U/L (40-110); Anion Gap 12 mmol/L (10-20); BUN (Urea Nitrogen) 35 mg/dL (9.8-20.1); Bilirubin, Total 0.9 mg/dL (0.2-1.2); Calc. Creatinine Clearance 75 mL/min (70-130); Calcium 7.9 mg/dL (7.8-10.44); Carbon Dioxide 31 mmol/L (23-31); Chloride 102 mmol/L (98-107); Estimated GFR-MDRD 29; Globulin 3.2 g/dL (2.4-3.5); Glucose 110 mg/dL (83-110); Magnesium 2.2 mg/dL (1.6-2.6); Potassium 3.8 mmol/L (3.5-5.1); Protein, Total 6.1 g/dL (6.0-8.3); Sodium 141 mmol/L (136-145)
[2019-11-17] MEDS: Levothyroxine Sodium 100 MCG TAB PO SCH (06:00)
[2019-11-17] MEDS: Mometasone Furoate 120 PUFF 220 MCG INH SCH ×3 (07:33→18:34)
--- NOTE | 2019-11-17 08:21 | PDOC.HOSPP ---
- Subjective Encounter Date: 11/17/19 Encounter Time: 08:18 Subjective: sob improved - Objective Vital Signs & Weight: Vital Signs (12 hours) Temp Pulse Resp BP Pulse Ox 11/17/19 07:41 97.6 F 60 20 112/60 96 11/17/19 05:58 97.4 F L 58 L 18 106/57 L 95 11/16/19 23:45 70 18 114/60 95 Weight Weight 345 lb I&O: 11/16/19 11/17/19 11/18/19 06:59 06:59 06:59 Intake Total 240 240 Output Total 400 500 Balance -160 -260 Result Diagrams: 11/15/19 04:20 11/17/19 04:09 Additional Labs: Accuchecks 11/17/19 11/16/19 11/16/19 05:49 20:36 17:37 POC Glucose 106 184 H 139 H 11/16/19 10:32 POC Glucose 103 Radiology Reviewed by me: Yes (decub cxr-leyering pleurqal effusion) Hospitalist ROS - Medication Medications: Active Medications Generic Name Dose Route Start Last Admin Trade Name Freq PRN Reason Stop Dose Admin Albuterol/Ipratropium 3 ml 11/14/19 18:26 11/15/19 07:29 Duoneb NEB 3 ml Q2H PRN Administration SOB &/or Wheezing Aspirin 325 mg 11/15/19 09:00 11/16/19 09:31 Ecotrin PO 325 mg DAILY LIAM Administration Carvedilol 3.125 mg 11/15/19 08:00 11/16/19 16:49 Coreg PO Not Given BID-[facility] Doxycycline Hyclate 100 mg 11/16/19 21:00 11/16/19 21:23 Vibramycin PO 11/21/19 09:01 100 mg BID LIAM Administration Enoxaparin Sodium 40 mg 11/15/19 09:00 11/16/19 09:31 Lovenox SC 40 mg 09 LIAM Administration Escitalopram Oxalate 10 mg 11/15/19 09:00 11/16/19 09:31 Lexapro PO 10 mg DAILY LIAM Administration Letrozole 2.5 mg 11/15/19 09:00 11/16/19 09:31 Femara PO 2.5 mg DAILY LIAM Administration Levothyroxine Sodium 200 mcg 11/15/19 06:00 11/17/19 06:00 Synthroid PO 200 mcg 0600 LIAM Administration Mometasone Furoate 0 puff 11/15/19 18:30 11/16/19 18:38 Asmanex Twisthaler INH Not Given 1830 LIAM Mometasone Furoate 2 puff 11/16/19 18:30 11/17/19 07:33 Asmanex Twisthaler INH Not Given BID-RT LIAM Sodium Chloride 10 ml 11/14/19 21:00 11/16/19 21:24 Flush - Normal Saline IVF 10 ml Q12HR LIAM Administration Sotalol HCl 80 mg 11/14/19 21:00 11/16/19 21:23 Betapace PO 80 mg BID LIAM Administration - Exam General Appearance: awake alert Neck: no JVD Heart: RRR, no murmur Respiratory - other findings: dull L base, coarse BS Gastrointestinal: soft, normal bowel sounds Extremities: 2+ LE edema Hosp A/P (1) Acute kidney injury superimposed on CKD Code(s): N17.9 - ACUTE KIDNEY FAILURE, UNSPECIFIED; N18.9 - CHRONIC KIDNEY DISEASE, UNSPECIFIED Status: Acute (2) Breast cancer Status: Chronic Qualifiers: Breast location: unspecified site of breast Estrogen receptor status: unspecified Patient sex: female Laterality: unspecified laterality Qualified Code(s): C50.919 - Malignant neoplasm of unspecified site of unspecified female breast (3) Acute respiratory failure with hypoxia Code(s): J96.01 - ACUTE RESPIRATORY FAILURE WITH HYPOXIA Status: Acute (4) Hypothyroidism Code(s): E03.9 - HYPOTHYROIDISM, UNSPECIFIED Status: Chronic Qualifiers: Hypothyroidism type: unspecified Qualified Code(s): E03.9 - Hypothyroidism , unspecified (5) Morbid obesity Code(s): E66.01 - MORBID (SEVERE) OBESITY DUE TO EXCESS CALORIES Status: Chronic - Plan L lat decub cxr cont nebs, etc discuss with pulmonology post cxr, for poss thoracentesis
--- NOTE | 2019-11-17 08:26 | CON ---
DATE OF CONSULTATION: 11/16/2019 SERVICE: Nephrology. REASON FOR CONSULTATION: Acute kidney injury on chronic kidney disease. REQUESTING PHYSICIAN: Barbara Paul MD. HISTORY OF PRESENT ILLNESS: A 73-year-old female with morbid obesity, chronic obstructive and restrictive lung disease as well as breast cancer and diastolic heart failure, admitted due to worsening shortness of breath as well as bilateral leg edema and poor exercise tolerance. The patient was found to have acute respiratory failure from COPD exacerbation, CHF exacerbation as well as pleural effusion. She was started on steroid and diuretics. Nephrology consult was requested for management of renal dysfunction. The patient has been on diuretics with some improvement in renal function. She denied dysuria, hematuria, nausea, or vomiting. She still reports a generalized weakness, poor exercise tolerance, and exertional dyspnea. No fever or chills. She however admitted to nonproductive cough. PAST MEDICAL HISTORY: 1. Congestive heart failure. 2. Hypertension. 3. Restrictive and obstructive lung disease. 4. Atrial fibrillation. 5. Breast cancer. 6. Morbid obesity. 7. Hypothyroidism. PAST SURGICAL HISTORY: 1. Prior cardioversion. 2. Previous history of thoracentesis. 3. Port-A-Cath placement. FAMILY HISTORY: Significant for cancer in mother and father. SOCIAL HISTORY: The patient is a retired teacher. Lives with significant other. Occasionally drinks alcohol, but denied smoking or recreational drug use. ALLERGIES: PENICILLIN. PRIOR TO HOSPITAL MEDICATIONS: 1. Amlodipine 10 mg p.o. daily. 2. Aspirin 325 mg p.o. daily. 3. Escitalopram 10 mg p.o. daily. 4. Flovent 50 mcg inhalation daily. 5. Letrozole 2.5 mg p.o. daily. 6. Levothyroxine 200 mcg p.o. daily. 7. Sotalol 80 mg p.o. b.i.d. 8. Brovana 50 mcg nebulization b.i.d. 9. Budesonide 0.5 mg inhalation b.i.d. 10. Carvedilol 3.125 mg p.o. b.i.d. 11. Lasix 40 mg p.o. daily. 12. Asmanex one puff inhalation daily. 13. DuoNeb q.2 hours p.r.n. for shortness of breath. 14. Acetaminophen 650 mg q.4 p.r.n. 15. Guaifenesin DM q.4 hours p.r.n. CURRENT HOSPITAL MEDICATIONS: 1. Meropenem 2 g every 12 hours. 2. Ergocalciferol 1.25 mg every 7 days. 3. Amlodipine 10 mg p.o. daily. 4. Brovana 50 mcg nebulization b.i.d. 5. Aspirin 325 mg p.o. daily. 6. Budesonide 0.5 mg nebulization b.i.d. 7. Carvedilol 3.125 mg p.o. b.i.d. 8. Doxycycline 100 mg p.o. b.i.d. 9. Lovenox 40 mg daily. 10. Lexapro 10 mg p.o. daily. 11. Letrozole 2.5 mg p.o. daily. 12. Levothyroxine 200 mcg p.o. daily. 13. Mometasone two puffs inhalation b.i.d. 14. Prednisone 40 mg p.o. daily. 15. Sotalol 80 mg p.o. b.i.d. 16. Acetaminophen 650 mg p.o. q.4 hours p.r.n. 17. DuoNeb 3 mL nebulization q.2 hours p.r.n. 18. Sennosides-docusate two tablets p.o. b.i.d. p.r.n. for constipation. REVIEW OF SYSTEMS: 12-point review of system performed, was negative other than pertinent positives and negatives included in the history of present illness. PHYSICAL EXAMINATION: VITAL SIGNS: Temperature 98.0, pulse 76, respiratory rate 20, SpO2 of 91 on 2 L nasal cannula, blood pressure is 134/77. GENERAL: Morbidly obese female, in no obvious distress. Afebrile. Anicteric. Acyanotic. HEENT: Normocephalic, atraumatic. Oral mucosa is moist. NECK: Short, thick neck with no obvious JVD appreciated. CARDIOVASCULAR: Irregular rhythm and rate with normal heart sounds one and two. RESPIRATORY: Fair air entry bilateral, though decreased at both bases with few transmitted breath sounds. No rhonchi or use of accessory muscles appreciated. GI: Morbidly obese, soft, nontender, nondistended with normal bowel sounds. EXTREMITIES: [id number]-[id number] bilateral leg edema noted. SMUDGER: Conscious, alert, oriented x3 with appropriate mental status. Cranial nerves 2 through 12 are grossly intact. The patient moves all extremities but weakly. DIAGNOSTIC DATA: CBC on 11/15/2019, showed WBC count of 9.9, hemoglobin of 11.3, MCV of 87.7, and platelets of 239. BMP today showed sodium 142, potassium 4.0, chloride 104, CO2 of 29, BUN 35, creatinine 1.68, glucose 110, calcium 8.0. Of note, on presentation on 11/14/2019, CMP showed sodium 140, potassium 4.1, chloride 103, CO2 of 29, BUN 38, creatinine 2.06, glucose 134, calcium 8.5, total bilirubin 1.4, AST 22, ALT 29, alkaline phosphatase 83, total protein 6.6, albumin 3.4, globulin 3.2. Review of medical records showed that the patient has CKD with baseline creatinine ranging from 1.5 to 1.8 in the last year. Urinalysis of 11/15, showed yellow turbid urine with pH of 7.0, specific gravity of 1.012, negative protein, normal glucose, negative ketone, 1+ blood, 2+ nitrite, negative bilirubin, normal urobilinogen with positive leukocyte esterase. Microscopy showed 11-20 rbc and greater than 50 wbc with 4+ bacteria. Urine electrolytes showed urine creatinine of 46.98 and urine sodium of 89; however, the patient was on diuretic at this time. Chest x-ray of 11/14, showed chronic findings as well as pulmonary vascular congestion and left hemidiaphragm elevation. CT scan of 11/14/2019, showed bilateral pleural effusion, small to moderate on the left and mild on the right, which is said to be stable as well as persistent bibasilar atelectasis. Cholelithiasis as well as stable sclerosis of the sternal body noted. Echocardiogram of 11/15, showed preserved systolic function with EF of 55 to 60 as well as mild mitral regurgitation and mild tricuspid regurgitation. ASSESSMENT: 1. Acute kidney injury, most likely due to cardiorenal related to cardiac decompensation. 2. 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 3. Acute respiratory failure due to acute congestive heart failure superimposed on chronic lung disease with possible chronic obstructive pulmonary disease exacerbation. 4. Acute on chronic diastolic heart failure. 5. Atrial fibrillation. 6. Presumed urinary tract infection. 7. Morbid obesity. 8. Bilateral leg edema: Due to diastolic heart failure as well as chronic venous insufficiency from morbid obesity. PLAN: We will start the patient on diuretic therapy as the patient is clearly fluid overloaded. We will monitor electrolytes and renal function with this. We will decrease amlodipine as volume overload is driving the hypertension. We will try to avoid hypotension in this patient as it will worsen renal perfusion. We will continue other treatments. Further treatment to follow depending on hospital course. Job ID: [id number]
[2019-11-17] MEDS: Carvedilol 3.125 MG TAB PO SCH ×2 (08:53→16:41)
[2019-11-17] MEDS: predniSONE 20 MG TAB PO SCH (08:53)
[2019-11-17] MEDS: Doxycycline 100 MG CAP PO SCH ×2 (08:53→20:35)
[2019-11-17] MEDS: Aspirin 325 mg Enteric Coated Tablet PO SCH (08:53)
[2019-11-17] MEDS: Enoxaparin Sodium 40 MG/0.4 ML SYRINGE SC SCH (08:54)
[2019-11-17] MEDS: Letrozole 2.5 MG TAB PO SCH (08:54)
[2019-11-17] MEDS: Sotalol HCl 80 MG TAB PO SCH ×2 (08:54→20:35)
[2019-11-17] MEDS: Escitalopram Oxalate 10 mg Tablet PO SCH (08:54)
[2019-11-17] MEDS ORDERED: Amlodipine 10 MG TAB PO SCH (09:00)
--- NOTE | 2019-11-17 09:24 | RAD ---
Left lateral decubitus radiograph chest: 11/17/2018 COMPARISON: 11/14/2019 HISTORY: Pleural fluid FINDINGS: Stable right-sided vascular catheter. Blunting of left costophrenic angle with small layeri ng left pleural effusion noted. Blunting of right costophrenic angle may signify pleural fluid (possibly loculated) or pleural thickening. Shallow inspiration limits detailed assessment of the gera g bases. IMPRESSION: Bilateral pleural effusions, left larger than right. The left pleural fluid demonstrates a layering component.
[2019-11-17] MEDS ORDERED: Furosemide 40 MG TAB PO SCH (15:30)
--- NOTE | 2019-11-17 17:51 | PRG ---
DATE OF SERVICE: 11/17/2019 SERVICE: Nephrology. SUBJECTIVE: A 73-year-old morbidly obese female with restrictive and obstructive pulmonary disease, diastolic heart failure and atrial fibrillation, admitted for worsening shortness of breath and hypoxia, being seen in followup by Nephrology for acute kidney injury on chronic kidney disease. The patient had shortness of breath earlier this morning, which has improved. Denied fever, nausea, vomiting, abdominal pain, hematuria, or dysuria. Still with bilateral legs edema. OBJECTIVE: VITAL SIGNS: Temperature 97.4, pulse 66, respiratory rate 18, SpO2 of 99% on 2 L nasal cannula, and blood pressure is 108/55. GENERAL: Morbidly obese female, in no obvious distress. CARDIOVASCULAR: Regular rhythm and rate with normal heart sounds one and two. RESPIRATORY: Diminished air movement both bases with transmitted breath sounds. No obvious rhonchi or use of accessory muscles appreciated. GI: Morbidly obese, soft, nontender, and nondistended with normal bowel sounds. EXTREMITIES: [id number] bilateral leg edema noted. PASTRY COOK: Conscious, alert, and oriented x3 with appropriate mental status. DIAGNOSTIC DATA: BMP showed sodium 141, potassium 3.8, chloride 102, CO2 of 31, BUN 35, creatinine 1.71, glucose 110, calcium 7.9, total bilirubin 0.9, AST 17, ALT 23, alkaline phosphatase 60, total protein 6.1, albumin 2.9, and globulin 3.2. Magnesium is 2.2. Chest x-ray showed bilateral pleural effusion, left greater than right with some layering component. ASSESSMENT: 1. Acute kidney injury: Improved in close to baseline. Creatinine is down from 2.02 to 1.74. Stable in the last 24 hours. 2. Chronic kidney disease stage 3/4. 3. Bilateral leg edema: Multifactorial from diastolic heart failure, chronic venous insufficiency from morbid obesity as well as hypoalbuminemia. 4. Acute respiratory failure with hypoxia. 5. Acute on chronic diastolic heart failure. 6. Bilateral pleural effusion with some layering component, left more than right. The patient has prior history of malignant pleural effusion status post thoracentesis. PLAN: 1. We will schedule Lasix 40 mg p.o. daily. 2. We will discontinue amlodipine given soft blood pressure and lower extremity edema concerning for amlodipine-induced leg edema. 3. We will monitor electrolytes and replete as needed. 4. Respiratory status and management as per Pulmonary and primary attending. 5. Monitor blood pressure with discontinuation of amlodipine. Job ID: [id number]
[2019-11-18 04:43] LABS: Hemoglobin 11.4 g/dL (12.0-16.0); Mean Corpuscular HGB CONC 30.7 g/dL (32.0-36.0); Mean Corpuscular Hemoglobin 27.2 pg (27.0-31.0); Mean Corpuscular Volume 88.6 fL (78.0-98.0); Mean Platelet Volume 7.3 fL (7.4-10.4); Platelet Count 231 thou/uL (130-400); White Blood Cell (WBC) Count 9.5 thou/uL (4.8-10.8)
[2019-11-18 04:53] LABS: Anion Gap 13 mmol/L (10-20); BUN (Urea Nitrogen) 36 mg/dL (9.8-20.1); BUN/Creatinine Ratio 22.22; Calc. Creatinine Clearance 79 mL/min (70-130); Calcium 8.1 mg/dL (7.8-10.44); Carbon Dioxide 33 mmol/L (23-31); Chloride 102 mmol/L (98-107); Estimated GFR-MDRD 31; Glucose 94 mg/dL (83-110); Phosphorus 3.7 mg/dL (2.3-4.7); Potassium 3.9 mmol/L (3.5-5.1); Sodium 144 mmol/L (136-145)
[2019-11-18] MEDS: Levothyroxine Sodium 100 MCG TAB PO SCH (06:20)
[2019-11-18] MEDS: Mometasone Furoate 120 PUFF 220 MCG INH SCH ×3 (07:21→18:49)
[2019-11-18] MEDS: Doxycycline 100 MG CAP PO SCH ×2 (08:51→21:36)
[2019-11-18] MEDS: Escitalopram Oxalate 10 mg Tablet PO SCH (08:52)
[2019-11-18] MEDS: Letrozole 2.5 MG TAB PO SCH (08:52)
[2019-11-18] MEDS: Aspirin 325 mg Enteric Coated Tablet PO SCH (08:52)
[2019-11-18] MEDS: Enoxaparin Sodium 40 MG/0.4 ML SYRINGE SC SCH (08:52)
[2019-11-18] MEDS: Sotalol HCl 80 MG TAB PO SCH ×2 (08:52→21:36)
[2019-11-18] MEDS: Furosemide 40 MG TAB PO SCH (08:52)
[2019-11-18] MEDS: Carvedilol 3.125 MG TAB PO SCH ×2 (08:52→16:35)
[2019-11-18] MEDS: predniSONE 20 MG TAB PO SCH (08:52)
[2019-11-18] MEDS ORDERED: Metolazone 2.5 MG TAB PO SCH (10:15)
--- NOTE | 2019-11-18 10:54 | PRG ---
DATE OF SERVICE: 11/18/2019 SERVICE: Nephrology. SUBJECTIVE: Morbidly obese female with acute on chronic diastolic heart failure and respiratory failure with hypoxia, seen in followup for acute on chronic renal failure. Reports feeling better. No fever, nausea, or vomiting. OBJECTIVE: VITAL SIGNS: Temperature 98.2, pulse 84, respiratory rate 20, SpO2 of 93% on 2 L nasal cannula, and blood pressure is 136/81. GENERAL: Morbidly obese female, in no obvious distress. Afebrile. Anicteric. Acyanotic. HEENT: Normocephalic and atraumatic. Oral mucosa is moist. CARDIOVASCULAR: Irregular rhythm and rate with normal heart sounds one and two. RESPIRATORY: Fair air entry bilateral. Decreased air entry both bases noted. No obvious rhonchi or use of accessory muscles appreciated. GI: Obese, soft, nontender, and nondistended with normal bowel sounds. EXTREMITIES: Hqulxlak-[id number] bilateral leg edema noted. LEVEL VIAL MARKER: Conscious, alert, and oriented x3 with appropriate mental status. Cranial nerves 2 through 12 are grossly intact. DIAGNOSTIC DATA: CBC today showed WBC count of 9.5, hemoglobin of 11.4, and platelet of 231. Renal function panel showed sodium 144, potassium 3.9, chloride 102, CO2 of 33, BUN 36, creatinine 1.62, glucose 94, calcium 8.1, phosphorus 3.7, and albumin 3.0. ASSESSMENT: 1. Acute kidney injury: Most likely due to cardiorenal syndrome related to acute on chronic diastolic heart failure. 2. Chronic kidney disease stage 3/4. Due to hypertension and cardiorenal etiologies. 3. Marked bilateral leg edema: Due to diastolic heart failure, venous stasis from morbid obesity. 4. Deep venous thrombosis was ruled out with Dopplers. 5. Advanced breast cancer on treatment. 6. Bilateral pleural effusion. PLAN: Continue to hold amlodipine due to possibility of contributing to bilateral leg edema as well as soft blood pressures. We will; however, add metolazone to Lasix to improve diuresis. Other treatment as per primary attending. We will recheck renal function test in the morning. Job ID: [id number]
--- NOTE | 2019-11-18 11:51 | PDOC.HOSPP ---
- Subjective Encounter Date: 11/18/19 Encounter Time: 11:49 Subjective: sob with exertion - Objective Vital Signs & Weight: Vital Signs (12 hours) Temp Pulse Resp BP Pulse Ox 11/18/19 11:05 97.9 F 75 16 112/58 L 96 11/18/19 08:52 94 L 11/18/19 08:48 98.2 F 84 20 136/81 93 L 11/18/19 03:35 97.8 F 63 17 117/61 96 Weight Weight 346 lb I&O: 11/17/19 11/18/19 11/19/19 06:59 06:59 06:59 Intake Total 240 720 240 Output Total 500 550 600 Balance -260 170 -360 Result Diagrams: 11/18/19 04:26 11/18/19 04:26 Additional Labs: Accuchecks 11/18/19 11/18/19 11/17/19 10:27 05:25 20:27 POC Glucose 117 H 87 177 H 11/17/19 17:06 POC Glucose 127 H Hospitalist ROS - Medication Medications: Active Medications Generic Name Dose Route Start Last Admin Trade Name Freq PRN Reason Stop Dose Admin Albuterol/Ipratropium 3 ml 11/14/19 18:26 11/15/19 07:29 Duoneb NEB 3 ml Q2H PRN Administration SOB &/or Wheezing Aspirin 325 mg 11/15/19 09:00 11/18/19 08:52 Ecotrin PO 325 mg DAILY LIAM Administration Carvedilol 3.125 mg 11/15/19 08:00 11/18/19 08:52 Coreg PO 3.125 mg BID-WM LIAM Administration Doxycycline Hyclate 100 mg 11/16/19 21:00 11/18/19 08:51 Vibramycin PO 11/21/19 09:01 100 mg BID LIAM Administration Enoxaparin Sodium 40 mg 11/15/19 09:00 11/18/19 08:52 Lovenox SC 40 mg 09 LIAM Administration Escitalopram Oxalate 10 mg 11/15/19 09:00 11/18/19 08:52 Lexapro PO 10 mg DAILY LIAM Administration Furosemide 40 mg 11/18/19 09:00 11/18/19 08:52 Lasix PO 40 mg DAILY LIAM Administration Letrozole 2.5 mg 11/15/19 09:00 01/14/20 08:52 Femara PO 2.5 mg DAILY LIAM Administration Levothyroxine Sodium 200 mcg 11/15/19 06:00 11/18/19 06:20 Synthroid PO 200 mcg 0600 LIAM Administration Metolazone 2.5 mg 11/18/19 10:15 11/18/19 11:08 Zaroxolyn PO 11/18/19 12:15 2.5 mg NOW LIAM Administration Mometasone Furoate 0 puff 11/15/19 18:30 11/17/19 18:34 Asmanex Twisthaler INH Not Given 1830 LIAM Mometasone Furoate 2 puff 11/16/19 18:30 11/18/19 07:21 Asmanex Twisthaler INH Not Given BID-RT LIAM Prednisone 20 mg 11/17/19 08:00 11/18/19 08:52 Prednisone PO 20 mg QAM-WM LIAM Administration Senna/Docusate Sodium 2 tab 11/14/19 18:26 11/18/19 08:51 Senokot S PO 2 tab BIDPRN PRN Administration Constipation Sodium Chloride 10 ml 11/14/19 21:00 11/18/19 08:52 Flush - Normal Saline IVF 10 ml Q12HR LIAM Administration Sotalol HCl 80 mg 11/14/19 21:00 11/18/19 08:52 Betapace PO 80 mg BID LIAM Administration - Exam General Appearance: awake alert Heart: RRR, no murmur Respiratory - other findings: good BS Gastrointestinal: soft, normal bowel sounds Extremities: 1+ LE edema Hosp A/P (1) Acute kidney injury superimposed on CKD Code(s): N17.9 - ACUTE KIDNEY FAILURE, UNSPECIFIED; N18.9 - CHRONIC KIDNEY DISEASE, UNSPECIFIED Status: Resolved (2) Breast cancer Status: Chronic Qualifiers: Breast location: unspecified site of breast Estrogen receptor status: unspecified Patient sex: female Laterality: unspecified laterality Qualified Code(s): C50.919 - Malignant neoplasm of unspecified site of unspecified female breast (3) Acute respiratory failure with hypoxia Code(s): J96.01 - ACUTE RESPIRATORY FAILURE WITH HYPOXIA Status: Acute (4) Hypothyroidism Code(s): E03.9 - HYPOTHYROIDISM, UNSPECIFIED Status: Chronic Qualifiers: Hypothyroidism type: unspecified Qualified Code(s): E03.9 - Hypothyroidism , unspecified (5) Morbid obesity Code(s): E66.01 - MORBID (SEVERE) OBESITY DUE TO EXCESS CALORIES Status: Chronic - Plan contnebs,O2,etc willeva;luate for home O2
--- NOTE | 2019-11-18 23:08 | PRG ---
DATE OF SERVICE: 11/18/2019 SUBJECTIVE: Lety Chakraborty says she feels much better. OBJECTIVE: VITAL SIGNS: She is afebrile. Heart rate is in the 70s, respiratory rate is in the teens, oximetry is 95% on 2 L blood pressure 122/59. GENERAL: She is in no distress. LUNGS: Clear. HEART: Regular rhythm. ABDOMEN: Soft. IMPRESSION: 1. Dyspnea largely secondary to the fact that she never gets out of bed. 2. Morbid obesity. 3. Chronic pleural effusions. 4. Metastatic breast cancer. There are no acute care issues with her as far as I am concerned. She looks exactly like she looked when she was discharged home last time I saw her. I will see her as needed in the future. Job ID: [id number]
[2019-11-19 04:38] LABS: Albumin 2.9 g/dL (3.4-4.8); Anion Gap 12 mmol/L (10-20); BUN (Urea Nitrogen) 37 mg/dL (9.8-20.1); BUN/Creatinine Ratio 25.17; Calc. Creatinine Clearance 87 mL/min (70-130); Calcium 8.4 mg/dL (7.8-10.44); Carbon Dioxide 33 mmol/L (23-31); Chloride 101 mmol/L (98-107); Estimated GFR-MDRD 35; Glucose 95 mg/dL (83-110); Phosphorus 3.8 mg/dL (2.3-4.7); Potassium 3.3 mmol/L (3.5-5.1); Sodium 143 mmol/L (136-145)
[2019-11-19] MEDS: Levothyroxine Sodium 100 MCG TAB PO SCH (05:52)
--- NOTE | 2019-11-19 07:21 | PDOC.HOSPP ---
- Subjective Encounter Date: 11/19/19 Encounter Time: 07:20 Subjective: sob with exertion, off O2 - Objective Vital Signs & Weight: Vital Signs (12 hours) Temp Pulse Resp BP Pulse Ox 11/19/19 03:25 97.3 F L 68 18 112/66 94 L 11/18/19 21:36 74 11/18/19 20:00 97.6 F 74 18 122/59 L 95 Weight Weight 342 lb I&O: 11/18/19 11/19/19 11/20/19 06:59 06:59 06:59 Intake Total 720 930 Output Total 550 2550 Balance 170 -1620 Result Diagrams: 11/18/19 04:26 11/19/19 03:45 Additional Labs: Accuchecks 11/19/19 11/18/19 11/18/19 05:42 20:30 16:36 POC Glucose 90 174 H 130 H 11/18/19 10:27 POC Glucose 117 H Hospitalist ROS - Medication Medications: Active Medications Generic Name Dose Route Start Last Admin Trade Name Freq PRN Reason Stop Dose Admin Albuterol/Ipratropium 3 ml 11/14/19 18:26 11/15/19 07:29 Duoneb NEB 3 ml Q2H PRN Administration SOB &/or Wheezing Aspirin 325 mg 11/15/19 09:00 11/18/19 08:52 Ecotrin PO 325 mg DAILY LIAM Administration Carvedilol 3.125 mg 11/15/19 08:00 11/18/19 16:35 Coreg PO 3.125 mg BID-WM LIAM Administration Doxycycline Hyclate 100 mg 11/16/19 21:00 11/18/19 21:36 Vibramycin PO 11/21/19 09:01 100 mg BID LIAM Administration Enoxaparin Sodium 40 mg 11/15/19 09:00 11/18/19 08:52 Lovenox SC 40 mg 0900 LIAM Administration Escitalopram Oxalate 10 mg 11/15/19 09:00 11/18/19 08:52 Lexapro PO 10 mg DAILY LIAM Administration Furosemide 40 mg 11/18/19 09:00 11/18/19 08:52 Lasix PO 40 mg DAILY LIAM Administration Letrozole 2.5 mg 11/15/19 09:00 11/18/19 08:52 Femara PO 2.5 mg DAILY LIAM Administration Levothyroxine Sodium 200 mcg 11/15/19 06:00 11/19/19 05:52 Synthroid PO 200 mcg 0600 LIAM Administration Mometasone Furoate 0 puff 11/15/19 18:30 11/18/19 18:48 Asmanex Twisthaler INH Not Given 1830 LIAM Mometasone Furoate 2 puff 11/16/19 18:30 11/18/19 18:49 Asmanex Twisthaler INH Not Given BID-RT LIAM Prednisone 20 mg 11/17/19 08:00 11/18/19 08:52 Prednisone PO 20 mg QAM-WM LIAM Administration Senna/Docusate Sodium 2 tab 11/14/19 18:26 11/18/19 08:51 Senokot S PO 2 tab BIDPRN PRN Administration Constipation Sodium Chloride 10 ml 11/14/19 21:00 11/18/19 21:37 Flush - Normal Saline IVF 10 ml Q12HR LIAM Administration Sotalol HCl 80 mg 11/14/19 21:00 11/18/19 21:36 Betapace PO 80 mg BID LIAM Administration - Exam Neck: no JVD Heart: RRR, no murmur Respiratory - other findings: clear Gastrointestinal: soft, normal bowel sounds Extremities: 1+ LE edema Hosp A/P (1) Acute kidney injury superimposed on CKD Code(s): N17.9 - ACUTE KIDNEY FAILURE, UNSPECIFIED; N18.9 - CHRONIC KIDNEY DISEASE, UNSPECIFIED Status: Resolved (2) Breast cancer Status: Chronic Qualifiers: Breast location: unspecified site of breast Estrogen receptor status: unspecified Patient sex: female Laterality: unspecified laterality Qualified Code(s): C50.919 - Malignant neoplasm of unspecified site of unspecified female breast (3) Acute respiratory failure with hypoxia Code(s): J96.01 - ACUTE RESPIRATORY FAILURE WITH HYPOXIA Status: Acute (4) Hypothyroidism Code(s): E03.9 - HYPOTHYROIDISM, UNSPECIFIED Status: Chronic Qualifiers: Hypothyroidism type: unspecified Qualified Code(s): E03.9 - Hypothyroidism , unspecified (5) Morbid obesity Code(s): E66.01 - MORBID (SEVERE) OBESITY DUE TO EXCESS CALORIES Status: Chronic - Plan cont nebs,O2,etc will evaluate for home O2
[2019-11-19] MEDS ORDERED: Potassium Chloride 20 MEQ TAB PO SCH (07:30)
[2019-11-19] MEDS: Mometasone Furoate 120 PUFF 220 MCG INH SCH ×3 (07:39→20:08)
[2019-11-19] MEDS: predniSONE 20 MG TAB PO SCH (08:04)
[2019-11-19] MEDS: Aspirin 325 mg Enteric Coated Tablet PO SCH (08:04)
[2019-11-19] MEDS: Escitalopram Oxalate 10 mg Tablet PO SCH (08:04)
[2019-11-19] MEDS: Letrozole 2.5 MG TAB PO SCH (08:04)
[2019-11-19] MEDS: Carvedilol 3.125 MG TAB PO SCH ×2 (08:04→17:07)
[2019-11-19] MEDS: Sotalol HCl 80 MG TAB PO SCH ×2 (08:04→21:58)
[2019-11-19] MEDS: Doxycycline 100 MG CAP PO SCH ×2 (08:04→21:58)
[2019-11-19] MEDS: Furosemide 40 MG TAB PO SCH (08:04)
[2019-11-19] MEDS: Enoxaparin Sodium 40 MG/0.4 ML SYRINGE SC SCH (08:05)
--- NOTE | 2019-11-19 09:55 | PRG ---
DATE OF SERVICE: 11/19/2019 SERVICE: Nephrology. SUBJECTIVE: A 73-year-old morbidly obese female with prior history of metastatic breast cancer, admitted due to worsening shortness of breath and leg swelling. Nephrology has seen the patient for acute on chronic renal failure. Shortness of breath has improved. The patient diuresed appropriately with addition of metolazone. Feeling better. Discharge is contemplated. OBJECTIVE: VITAL SIGNS: Temperature 97.7, pulse 63, respiratory rate 18, SpO2 of 97% on 2 L nasal cannula, blood pressure is 172/75. However, prior to this, it was 112/66, and since admission, blood pressure has ranged from 100s to 130. GENERAL: Morbidly obese female, in no obvious distress. Afebrile, anicteric, acyanotic. HEENT: Normocephalic and atraumatic. Oral mucosa is moist. CARDIOVASCULAR: Regular rhythm and rate. Normal heart sounds 1 and 2. RESPIRATORY: Fair air entry bilaterally with few transmitted breath sounds. Air entry however is decreased at both bases. There is no use of accessory muscles or rhonchi. GI: Morbidly obese, soft, nontender, nondistended with normal bowel sounds. EXTREMITIES: Mild bilateral leg edema. TAXI SERVICER: Conscious, alert and oriented x3 with appropriate mental status. DIAGNOSTIC DATA: Renal function panel showed sodium 143, potassium 3.3, chloride 101, CO2 of 33, BUN 37, creatinine 1.47, glucose 95, calcium 8.4, phosphorus 3.8, albumin 2.9. ASSESSMENT: 1. Acute kidney injury: Due to cardiorenal syndrome related to acute cardiac decompensation. 2. Chronic kidney disease, stage 3-4. Due to hypertension, chronic poor perfusion due to cardiac decompensation. 3. Hypokalemia: Due to diuretic therapy. 4. Volume overload. 5. Bilateral leg edema from diastolic heart failure as well as venous insufficiency related to morbid obesity. 6. Bilateral pleural effusion. 7. Prior history of breast cancer with metastatic pleural effusion. 8. Acute respiratory failure with hypoxia. PLAN: 1. We will continue Lasix 40 mg daily. 2. We will replete serum potassium with potassium chloride 40 mEq p.o. daily. 3. We will change the frequency of metolazone to every 48 hours. If the patient is to be discharged, I recommend discharge on Lasix 40 mg daily as well as metolazone 2.5 mg every 48 hours and oral potassium supplementation. The patient if discharged, also needs to follow up in 1 to 2 weeks with repeat labs. Job ID: [id number]
[2019-11-20 05:29] LABS: Albumin 2.9 g/dL (3.4-4.8); BUN (Urea Nitrogen) 35 mg/dL (9.8-20.1); BUN/Creatinine Ratio 24.31; Calc. Creatinine Clearance 88 mL/min (70-130); Calcium 8.5 mg/dL (7.8-10.44); Estimated GFR-MDRD 36; Glucose 86 mg/dL (83-110); Phosphorus 3.6 mg/dL (2.3-4.7)
[2019-11-20 05:36] LABS: Potassium 2.9 mmol/L (3.5-5.1)
[2019-11-20 05:38] LABS: Anion Gap 15 mmol/L (10-20); Carbon Dioxide 36 mmol/L (23-31); Chloride 96 mmol/L (98-107); Sodium 144 mmol/L (136-145)
[2019-11-20] MEDS ORDERED: Potassium Chloride 20 MEQ TAB PO SCH ×2 (06:00→12:00)
[2019-11-20] MEDS: Levothyroxine Sodium 100 MCG TAB PO SCH (06:12)
[2019-11-20] MEDS: Mometasone Furoate 120 PUFF 220 MCG INH SCH (07:11)
[2019-11-20] MEDS ORDERED: Metolazone 2.5 MG TAB PO SCH (09:00)
[2019-11-20] MEDS: Doxycycline 100 MG CAP PO SCH (09:15)
[2019-11-20] MEDS: Furosemide 40 MG TAB PO SCH (09:15)
[2019-11-20] MEDS: Aspirin 325 mg Enteric Coated Tablet PO SCH (09:15)
[2019-11-20] MEDS: Escitalopram Oxalate 10 mg Tablet PO SCH (09:15)
[2019-11-20] MEDS: predniSONE 20 MG TAB PO SCH (09:15)
[2019-11-20] MEDS: Sotalol HCl 80 MG TAB PO SCH (09:15)
[2019-11-20] MEDS: Letrozole 2.5 MG TAB PO SCH (09:15)
[2019-11-20] MEDS: Carvedilol 3.125 MG TAB PO SCH ×2 (09:15→17:53)
[2019-11-20] MEDS: Enoxaparin Sodium 40 MG/0.4 ML SYRINGE SC SCH (09:16)
--- NOTE | 2019-11-20 09:20 | DIS ---
DATE OF ADMISSION: 11/14/2019 DATE OF DISCHARGE: 11/20/2019 PRIMARY CARE PROVIDER: Bennett Jimenes MD DISPOSITION: Discharged home. FINAL DIAGNOSES: Acute respiratory failure with hypoxia, chronic pleural effusions, bilateral; malignant neoplasm of the breast, acute kidney failure, hypertension, dyslipidemia, chronic lung disease, paroxysmal atrial fibrillation. DISCHARGE MEDICATIONS: 1. Aspirin 325 mg a day. 2. Brovana 15 mcg nebulizer b.i.d. 3. Escitalopram 10 mg a day. 4. Coreg 3.125 mg twice a day. 5. Pulmicort nebs 0.5 mg twice a day. 6. Lasix 40 mg a day. 7. Letrozole 2.5 mg a day. 8. DuoNeb 3 mL q.2 hours p.r.n. 9. Asmanex one puff inhaled twice daily. 10. Levothyroxine 200 mcg a day. 11. Sotalol 80 mg p.o. b.i.d. 12. Prednisone 20 mg a day in declining dose. 13. Potassium chloride 40 mEq a day. 14. Zaroxolyn 2.5 mg every other day. ALLERGIES: PENICILLINS. DIET: Heart-healthy, low-salt. CODE STATUS: Full. PENDING AT TIME OF DISCHARGE: Nothing. HOSPITAL COURSE: The patient admitted through [facility] with acute respiratory failure. She was noted again to have bilateral pleural effusions. She was treated with pulmonary medicines to include DuoNebs, etc,. She was given antibiotics. Consult per Pulmonary, per Dr. Munoz. She was noted to have acute renal failure and consulted with Dr. Neymar Bills. Medicines were adjusted. Her initial laboratory, comprehensive metabolic profile, bilirubin 1.4, transaminases normal. Creatinine 2.06, BUN 38. Lytes balanced. Troponins minimally elevated 0.031, 0.014, 0.034. CBC was unremarkable. During her stay, a CTA of the thorax revealed the aforementioned small bilateral pleural effusions. No evidence of pulmonary thromboembolism. During her hospital stay, venogram was done on her legs for possible DVT, was negative. Echocardiogram revealed normal cardiac function. Her medications were adjusted. Her CBC remained unremarkable. Her creatinine decreased to 1.44. She is currently doing well. Lung functions have improved. Respirations have improved. She is still requiring O2. She was evaluated for chronic O2, found to qualify. She is being sent home on oxygen 2 L per nasal cannula. Prescriptions have been written for her medicines. She will follow up with her PCP in 3 days. Follow up with Dr. Neymar Bills, in 2 weeks. Job ID: [id number]
--- NOTE | 2019-11-20 10:37 | PRG ---
DATE OF SERVICE: 11/20/2019 SERVICE: Nephrology. SUBJECTIVE: Morbidly obese female, admitted due to worsening shortness of breath and leg swelling. Nephrology has seen the patient for acute kidney injury. The patient is feeling better. Bilateral leg swelling has improved. Denied nausea or vomiting or frequent loose stools. OBJECTIVE: VITAL SIGNS: Temperature 97.8, pulse 75, respiratory rate 20, SpO2 of 94% on 2 L nasal cannula, blood pressure is 130/65. GENERAL: Morbidly obese female, in no obvious distress. Afebrile, anicteric. HEENT: Normocephalic and atraumatic. RESPIRATORY: Fair air entry bilateral with some transmitted breath sounds, but no obvious rhonchi or use of accessory muscles. GI: Morbidly obese, soft, nontender, nondistended with normal bowel sounds. EXTREMITIES: Mild bilateral leg edema noted. 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 DIAGNOSTIC DATA: Renal function panel showed sodium of 144, potassium 2.9, chloride 96, CO2 of 36, BUN 35, creatinine 1.44, glucose 86, calcium 8.5, phosphorus 3.6, albumin 2.9. ASSESSMENT: 1. Acute kidney injury. 2. Hypokalemia: Due to diuretic therapy. 3. Chronic kidney disease, stage 3/4. 4. Morbid obesity. 5. Hypertension: Control is acceptable despite discontinuation of amlodipine. 6. Bilateral leg edema: Due to diastolic heart failure as well as venous insufficiency. Contribution from amlodipine is considered, hence off amlodipine currently. PLAN: 1. Replete serum potassium with potassium chloride. 2. Get serum albumin and replete if indicated. 3. Continue current diuretic regimen. 4. The patient can be discharged from Nephrology point of view. Follow up as scheduled with repeat renal function test in 10 days. Job ID: [id number]
[2019-11-20 16:06] VITALS: BP 132/72; TEMP 98.8
[2019-11-21] MEDS ORDERED: Potassium Chloride 20 MEQ TAB PO SCH (08:00)
[2019-11-21] MEDS ORDERED: Ergocalciferol 1.25 MG(50,000 UNITS) CAP PO SCH (09:00)
== END 2019-11-20 19:30 | disposition home or self-care (01) | DRG 291 ==
LOC: ERS 14:33 → 2NO 20:18
PROVIDERS: ADMIT Internal Medicine; ATTEND Internal Medicine
DX: I13.0 Hypertensive heart and chronic kidney disease with heart failure and stage 1 through stage 4 chronic kidney disease, or unspecified chronic kidney disease (principal); J96.01 Acute respiratory failure with hypoxia; I50.33 Acute on chronic diastolic (congestive) heart failure; C79.51 Secondary malignant neoplasm of bone; N17.9 Acute kidney failure, unspecified; Z68.43 Body mass index [BMI] 50.0-59.9, adult; J44.1 Chronic obstructive pulmonary disease with (acute) exacerbation; N18.4 Chronic kidney disease, stage 4 (severe); J90 Pleural effusion, not elsewhere classified; C50.919 Malignant neoplasm of unspecified site of unspecified female breast; E11.22 Type 2 diabetes mellitus with diabetic chronic kidney disease; E78.00 Pure hypercholesterolemia, unspecified; E03.9 Hypothyroidism, unspecified; E66.01 Morbid (severe) obesity due to excess calories; I87.2 Venous insufficiency (chronic) (peripheral); I48.0 Paroxysmal atrial fibrillation; E78.5 Hyperlipidemia, unspecified; E87.6 Hypokalemia; Z88.0 Allergy status to penicillin; Z79.51 Long term (current) use of inhaled steroids; Z79.52 Long term (current) use of systemic steroids; Z79.82 Long term (current) use of aspirin; Z79.890 Hormone replacement therapy; Z79.899 Other long term (current) drug therapy
CPT/HCPCS: 36415; 36416; 71045; 71250; 80048; 80053; 80069; 81001; 82553; 82570; 83605; 83735; 83880; 84300; 84484; 85025; 85027; 85379; 87040; 87086; 93005; 93306; 93970; 94640; 94760; J1650; J1940; J2185; J3490; J7512; J7620; J7626

== ENCOUNTER 2020-01-09 17:58 | Emergency (ER) | payer MEDICARE ==
[2020-01-09 18:26] LABS: #Eosinphils 0.1 thou/uL (0.0-0.7); #Lymphocytes 2.3 thou/uL (1.20-3.40); #Monocytes 0.8 thou/uL (0.11-0.59); #Neutrophils 8.2 thou/uL (1.40-6.50); %Basophils 0.1 % (0.0-1.0); %Eosinophils 0.4 % (0.0-10.0); %Monocytes 6.9 % (0.0-10.0); %Neutrophils 72.5 % (42.0-75.0); Hemoglobin 11.2 g/dL (12.0-16.0); Mean Corpuscular HGB CONC 30.4 g/dL (32.0-36.0); Mean Corpuscular Hemoglobin 27.7 pg (27.0-31.0); Mean Corpuscular Volume 91.3 fL (78.0-98.0); Mean Platelet Volume 6.7 fL (7.4-10.4); Platelet Count 257 thou/uL (130-400); RBC Distribution Width 16.7 % (11.5-14.5); Red Blood Cell (RBC) Count 4.06 mill/uL (4.20-5.40); White Blood Cell (WBC) Count 11.3 thou/uL (4.8-10.8)
[2020-01-09 18:39] LABS: Bacteria/HPF 3+ HPF (None Seen); Bilirubin Negative (Negative); Blood, Urine 2+ (Negative); Clarity Turbid (Clear); Glucose, Urine (Dipstick) Normal (Negative); Leukocyte 500 Leu/uL (Negative); Nitrite Negative (Negative); Protein, Urine (Dipstick) 10 mg/dL (Neg-Trace); RBC/HPF 21-50 HPF (0-3); Squamous Epithelial 0-3 HPF (0-3); Urobilinogen Normal mg/dL (Less than 2); WBC/HPF Greater than 50 HPF (0-3)
[2020-01-09 18:46] LABS: ALT (SGPT) 18 U/L (8-55); AST (SGOT) 15 U/L (5-34); Albumin 3.3 g/dL (3.4-4.8); Alkaline Phosphatase 75 U/L (40-110); Anion Gap 10 mmol/L (10-20); BUN (Urea Nitrogen) 29 mg/dL (9.8-20.1); Bilirubin, Total 0.9 mg/dL (0.2-1.2); Calc. Creatinine Clearance 0 mL/min (70-130); Calcium 8.8 mg/dL (7.8-10.44); Carbon Dioxide 35 mmol/L (23-31); Chloride 100 mmol/L (98-107); Estimated GFR-MDRD 35; Globulin 3.4 g/dL (2.4-3.5); Glucose 158 mg/dL (83-110); Potassium 4.4 mmol/L (3.5-5.1); Protein, Total 6.7 g/dL (6.0-8.3); Sodium 141 mmol/L (136-145)
[2020-01-09] MEDS ORDERED: cefTRIAXone\\ROCEPHIN 1 GM VIAL ONE (19:20)
--- NOTE | 2020-01-09 19:34 | RAD ---
RADIOGRAPH CHEST 1 VIEW: DATE: 01/09/2020 TIME: 6:23 PM HISTORY: 74-year-old female with dyspnea and leukocytosis COMPARISON: 11/14/2019 FINDINGS: Again noted is the elevated left hemidiaphragm. The left pleural effusion has increased in volume. Op acification of the underlying left lung base and left perihilar midlung zone is worse or new since the prior study. Small right pleural effusion. Right subclavian implantable vascular access port. No pulmonary edema or pneumothorax. IMPRESSION: 1) interval increase in volume of left pleural effusion and interval increase in underlying left mid and lower lung zone opacification. 2) no interval change in small right pleural effusion
== END 2020-01-09 22:38 | disposition home or self-care (01) ==
LOC: ERS 17:58
DX: N39.0 Urinary tract infection, site not specified (principal); F41.9 Anxiety disorder, unspecified; F32.9 Major depressive disorder, single episode, unspecified; J45.909 Unspecified asthma, uncomplicated; I10 Essential (primary) hypertension; E03.9 Hypothyroidism, unspecified; E78.00 Pure hypercholesterolemia, unspecified; E11.9 Type 2 diabetes mellitus without complications; I48.91 Unspecified atrial fibrillation; Z79.899 Other long term (current) drug therapy; Z79.82 Long term (current) use of aspirin
CPT/HCPCS: 36415; 51701; 71045; 80053; 81003; 81015; 83605; 85025; 87040; 87077; 87086; 87149; 87186; 87804; 96361; 96365; J0696

== ENCOUNTER 2020-02-13 16:00 | Inpatient (IN) | payer MEDICARE ==
[2020-02-13 17:02] LABS: #Basophils 0.1 thou/uL (0.0-0.2); #Eosinphils 0.1 thou/uL (0.0-0.7); #Lymphocytes 4.9 thou/uL (1.20-3.40); %Basophils 0.5 % (0.0-1.0); %Eosinophils 0.6 % (0.0-10.0); %Lymphocytes 27.3 % (21.0-51.0); %Monocytes 10.8 % (0.0-10.0); %Neutrophils 60.8 % (42.0-75.0); Hemoglobin 11.9 g/dL (12.0-16.0); Mean Corpuscular HGB CONC 30.6 g/dL (32.0-36.0); Mean Corpuscular Volume 91.4 fL (78.0-98.0); Mean Platelet Volume 7.3 fL (7.4-10.4); Platelet Count 334 thou/uL (130-400); RBC Distribution Width 16.1 % (11.5-14.5); Red Blood Cell (RBC) Count 4.24 mill/uL (4.20-5.40); White Blood Cell (WBC) Count 18.1 thou/uL (4.8-10.8)
--- NOTE | 2020-02-13 17:20 | RAD ---
FRONTAL RADIOGRAPH CHEST: 02/13/20 COMPARISON: 01/09/20 HISTORY: Shortness of breath. FINDINGS: Stable right sided Port-A-Cath. Heart and mediastinal contours are stable. Dense nonspecific pleural and parenchymal opacity noted in the left perihilar region with complete opacification of the inferi or half of the left hemithorax. There is atherosclerotic calcification of the aortic arch. IMPRESSION: Prominent dense pleural and parenchymal opacity in the left perihilar region and inferior half of the left hemithorax, stable when compared to the prior imaging. Findings may be related to infectious pn eumonitis/aspiration and/or underlying malignancy. POS: [facility]
[2020-02-13 17:27] LABS: ALT (SGPT) 19 U/L (8-55); AST (SGOT) 22 U/L (5-34); Albumin 3.7 g/dL (3.4-4.8); Alkaline Phosphatase 65 U/L (40-110); Anion Gap 15 mmol/L (10-20); BUN (Urea Nitrogen) 20 mg/dL (9.8-20.1); Bilirubin, Total 1.5 mg/dL (0.2-1.2); CK (CPK) 16 U/L (29-168); Calc. Creatinine Clearance 0 mL/min (70-130); Calcium 8.9 mg/dL (7.8-10.44); Carbon Dioxide 36 mmol/L (23-31); Chloride 97 mmol/L (98-107); Estimated GFR-MDRD 35; Globulin 2.9 g/dL (2.4-3.5); Glucose 133 mg/dL (83-110); Potassium 4.3 mmol/L (3.5-5.1); Protein, Total 6.6 g/dL (6.0-8.3); Sodium 144 mmol/L (136-145)
[2020-02-13 17:43] LABS: CKMB 1.1 ng/mL (0-6.6)
[2020-02-13] MEDS ORDERED: Piperacillin/Tazobactam 4.5 GM VIAL ONE (18:56)
[2020-02-13] MEDS ORDERED: Vancomycin 1 GM/200 ML BAG ONE (19:26)
[2020-02-13 20:50] LABS: Troponin I 0.073 ng/mL (< 0.028)
[2020-02-13] MEDS ORDERED: Acetaminophen 325 MG TAB PO PRN (21:30)
[2020-02-13] MEDS ORDERED: Ondansetron PF 4 MG/2 ML Vial IVP PRN (21:30)
[2020-02-13] MEDS ORDERED: Ondansetron ODT 4 MG TAB SL PRN (21:30)
[2020-02-13 21:49] VITALS: BMI 60.7
[2020-02-14] MEDS ORDERED: Dextrose 5% in Water 1,000 ML IV PRN (00:11)
[2020-02-14] MEDS ORDERED: HumaLOG 300 UNITS/3 ML VIAL SC PRN (00:11)
[2020-02-14] MEDS ORDERED: HYDROcodone/Acetaminophen 5/325 mg Tablet PO PRN (00:11)
[2020-02-14] MEDS ORDERED: Acetaminophen 325 MG TAB PO PRN (00:11)
[2020-02-14] MEDS ORDERED: hydrALAZINE 20 MG/ML VIAL SLOW IVP PRN (00:11)
[2020-02-14] MEDS ORDERED: Dextrose 50% Abboject 50 ML SYRINGE SLOW IVP PRN (00:11)
[2020-02-14 00:32] LABS: Troponin I 0.136 ng/mL (< 0.028)
--- NOTE | 2020-02-14 01:53 | HP ---
PRIMARY CARE PHYSICIAN: Dr. Melchor. CHIEF COMPLAINT: "I've bleeding from my leg." HISTORY OF PRESENT ILLNESS: Ms. Chakraborty is a pleasant 74-year-old female who has a history of diabetes mellitus, hypertension, and chronic diastolic heart failure. She was in her usual state of health until this morning. She says that she was having some pain in her left buttocks. She was recently admitted for congestive heart failure exacerbation. She lives at home and is essentially bed bound, but she is able to transfer from her bed to a lift chair and she says she recently got a new chair and says she believes as a result, it was causing more rubbing on her thigh and then she noticed quite a bit of what looked like profuse bleeding, as a result she came to the ER for evaluation. She was found to have several skin tears in the area as well as an elevated white blood cell count. There was no fever; however, but she is being admitted for possible cellulitis of the lower extremity. She denies any fever at home, no nausea, no vomiting and other than having some shortness of breath, which she says has never gone away, even since her last admission, no other complaints. The patient is on home oxygen and she does admit that in the last day or so she had to turn up the amount of oxygen that she had been getting. REVIEW OF SYSTEMS: All systems were reviewed and are negative except for that mentioned in the history of present illness. PAST MEDICAL HISTORY: Significant for breast cancer, stage IV; diabetes mellitus type 2, which is diet controlled; hypertension; hypercholesterolemia; hypothyroidism; atrial fibrillation; and chronic diastolic heart failure. PAST SURGICAL HISTORY: Negative. ALLERGIES: SHE IS ALLERGIC TO PENICILLIN. SOCIAL HISTORY: She is . She lives with a very good male friend. She denies any alcohol. No drug use or tobacco use. She is and has 2 children, either one of her children can help her with her medical decisions and she would like to be a full code. She is essentially bed bound and she does not walk. She is able to dress herself and transfer, but she does need help with bathing and has a home health agency that will come in for this on her. FAMILY HISTORY: Mother had colon cancer and esophageal cancer in the brother as well as heart disease. CURRENT MEDICATIONS: These will need to be reconciled, but she is on: 1. Ventolin. 2. Aspirin 325 mg daily. 3. Vitamin D2 of 50,000 units daily. 4. Escitalopram 10 mg daily. 5. Lasix 40 mg twice daily. 6. Letrozole 2.5 mg daily. 7. Levothyroxine 25 mcg p.o. daily. 8. Potassium chloride 40 mEq twice a day. 9. Florastor 250 mg daily. 10. Sotalol 80 mg twice daily. 11. Tylenol 650 mg q.4. 12. Pulmicort. 13. Carvedilol 3.125 mg twice daily. 14. Prednisone 20 mg a day. PHYSICAL EXAMINATION: GENERAL: She is alert and oriented. She appears to be in no acute distress. She is well developed, but she is morbidly obese with a height of 5 feet 6 inches, weight 376 pounds, and BMI of 60.8. HEENT: Pupils are equal, round, and reactive. Extraocular muscles are intact. Her sclerae are anicteric. Throat, there is no erythema, no exudates. NECK: No adenopathy. No bruits. LUNGS: Clear to auscultation. No wheezing. No rales. No rhonchi. CARDIOVASCULAR: She has a normal S1 and S2. There is no S3 or S4. No murmurs, clicks, or rubs. ABDOMEN: Obese. It is soft, nontender, and nondistended. Positive for bowel sounds. No rebound. No guarding. No organomegaly. EXTREMITIES: She has 3 to 4+ pitting edema in both lower extremities up to the level of the thigh. She does have some varicose veins and the pictures of the wound were reviewed. She has multiple excoriations with some mild surrounding erythema, but there does not appear to be any induration or no abscess or fluctuance. SKIN AND INTEGUMENT: As above. NEUROLOGIC: Grossly nonfocal. LABORATORY RESULTS: Sodium 144, potassium 4.3, chloride 97, CO2 is 36, BUN of 20, creatinine 1.43, glucose is 133. White blood cell count is 18.1, hemoglobin 11.9, hematocrit is 38.8, and platelet count was 334. On her chest x-ray, she has cardiomegaly. She has left pleural effusion by my reading and then also some increased pulmonary vascular markings. ASSESSMENT: This is a pleasant 74-year-old female, who presents with bleeding from the left lower extremity, likely as a result of a friction decubitus ulcer. Her white count is elevated and she may have some degree of superinfection as well. Therefore, 1. With regard to the cellulitis, she will be admitted and we will continue IV antibiotics. She was given vancomycin and Zosyn in the ER. Given her penicillin allergy, we will continue vancomycin and Levaquin going forward. Get a wound care consult. 2. Acute on chronic diastolic heart failure. We will give her a dose of IV Lasix and continue her home medications. 3. Diabetes mellitus. We will place her on a sliding scale insulin and place her on a diabetic diet. 4. Atrial fibrillation. Her heart rate seems to be stable at this time. We will continue sotalol and in review of her records, it appears that she is not on anticoagulation at this time. 5. Hypothyroidism. She appears to be clinically euthyroid. Continue levothyroxine. 6. Breast cancer, stage IV. It appears she has had chemotherapy and radiation. It appears that she [facility]. Job ID: [id number]
[2020-02-14] MEDS ORDERED: Vancomycin 1 GM in Premix Bag 1 BAG IVPB SCH (02:00)
[2020-02-14 04:30] LABS: #Eosinphils 0.1 thou/uL (0.0-0.7); #Lymphocytes 1.6 thou/uL (1.20-3.40); #Neutrophils 6.9 thou/uL (1.40-6.50); %Basophils 0.4 % (0.0-1.0); %Eosinophils 0.9 % (0.0-10.0); %Lymphocytes 16.4 % (21.0-51.0); %Monocytes 10.5 % (0.0-10.0); %Neutrophils 71.8 % (42.0-75.0); Hemoglobin 9.5 g/dL (12.0-16.0); Mean Corpuscular HGB CONC 30.4 g/dL (32.0-36.0); Mean Corpuscular Hemoglobin 27.6 pg (27.0-31.0); Mean Platelet Volume 7.3 fL (7.4-10.4); Platelet Count 193 thou/uL (130-400); RBC Distribution Width 16.1 % (11.5-14.5); Red Blood Cell (RBC) Count 3.45 mill/uL (4.20-5.40); White Blood Cell (WBC) Count 9.6 thou/uL (4.8-10.8)
[2020-02-14 04:50] LABS: Anion Gap 13 mmol/L (10-20); BUN (Urea Nitrogen) 18 mg/dL (9.8-20.1); Calc. Creatinine Clearance 105 mL/min (70-130); Calcium 8.3 mg/dL (7.8-10.44); Carbon Dioxide 36 mmol/L (23-31); Chloride 98 mmol/L (98-107); Estimated GFR-MDRD 40; Glucose 127 mg/dL (83-110); Potassium 3.5 mmol/L (3.5-5.1); Sodium 143 mmol/L (136-145)
[2020-02-14] MEDS ORDERED: Sodium Chloride 0.9% 10 ML ONE (05:16)
[2020-02-14] MEDS: Levothyroxine Sodium 25 MCG TAB PO SCH (05:36)
[2020-02-14] MEDS: Furosemide 40 MG/4 ML VIAL SLOW IVP SCH ×2 (05:37→14:54)
[2020-02-14] MEDS: Budesonide 0.5 MG/2 ML NEB NEB SCH ×2 (06:55→20:18)
[2020-02-14] MEDS: Potassium Chloride 20 MEQ TAB PO SCH ×2 (08:19→18:15)
[2020-02-14] MEDS: Enoxaparin Sodium 40 MG/0.4 ML SYRINGE SC SCH (08:19)
[2020-02-14] MEDS: Sotalol HCl 80 MG TAB PO SCH ×2 (08:19→21:02)
[2020-02-14] MEDS: Aspirin 325 mg Enteric Coated Tablet PO SCH (08:20)
[2020-02-14] MEDS: Carvedilol 3.125 MG TAB PO SCH ×2 (08:20→18:15)
[2020-02-14] MEDS: predniSONE 20 MG TAB PO SCH (08:20)
[2020-02-14] MEDS: Escitalopram Oxalate 10 mg Tablet PO SCH (08:20)
[2020-02-14] MEDS: Famotidine 20 MG TAB PO SCH (08:20)
[2020-02-14] MEDS: Saccharomyces boulardii 250 MG CAP PO SCH (08:20)
[2020-02-14] MEDS: Letrozole 2.5 MG TAB PO SCH (08:21)
--- NOTE | 2020-02-14 13:59 | PDOC.HOSPP ---
- Subjective Encounter Date: 02/14/20 Encounter Time: 11:30 Subjective: no pain in her bottom area now says she normally walks only few steps at home - Objective Vital Signs & Weight: Vital Signs (12 hours) Temp Pulse Resp BP Pulse Ox 02/14/20 11:00 97.7 F 83 26 H 109/64 96 02/14/20 10:45 104 H 28 H 02/14/20 08:17 97.6 F 114 H 24 H 155/96 H 96 02/14/20 06:57 93 L 02/14/20 06:55 96 24 H 02/14/20 03:07 97.4 F L 85 18 124/60 96 02/14/20 02:15 104 H 16 98 Weight Weight 376 lb 9.6 oz I&O: 02/13/20 02/14/20 02/15/20 06:59 06:59 06:59 Intake Total 350 Output Total 350 Balance 0 Result Diagrams: 02/14/20 03:27 02/14/20 03:27 Additional Labs: Accuchecks 02/14/20 02/14/20 10:13 05:58 POC Glucose 131 H 119 H Hospitalist ROS - Medication Medications: Active Medications Generic Name Dose Route Start Last Admin Trade Name Freq PRN Reason Stop Dose Admin Albuterol/Ipratropium 3 ml 02/14/20 01:46 02/14/20 10:45 Duoneb NEB 3 ml Q4H PRN Administration SOB &/or Wheezing Aspirin 325 mg 02/14/20 09:00 02/14/20 08:20 Ecotrin PO 325 mg DAILY LIAM Administration Budesonide 0.5 mg 02/14/20 06:30 02/14/20 06:55 Pulmicort Neb Solution NEB 0.5 mg BID-RT LIAM Administration Carvedilol 3.125 mg 02/14/20 08:00 02/14/20 08:20 Coreg PO 3.125 mg BID-WM LIAM Administration Enoxaparin Sodium 40 mg 02/14/20 09:00 02/14/20 08:19 Lovenox SC 40 mg 0900 LIAM Administration Escitalopram Oxalate 10 mg 02/14/20 09:00 02/14/20 08:20 Lexapro PO 10 mg DAILY LIAM Administration Famotidine 20 mg 02/14/20 09:00 02/14/20 08:20 Pepcid PO 20 mg DAILY LIAM Administration Furosemide 40 mg 02/14/20 06:00 02/14/20 05:37 Lasix SLOW IVP 02/14/20 14:01 40 mg 0600,1400 LIAM Administration Levofloxacin 500 mg/ Device 100 mls @ 100 mls/hr 02/14/20 01:00 02/14/20 01: 06 IVPB 100 mls 0100 LIAM Administration Letrozole 2.5 mg 02/14/20 09:00 02/14/20 08:21 Femara PO 2.5 mg DAILY LIAM Administration Levothyroxine Sodium 25 mcg 02/14/20 06:00 02/14/20 05:36 Synthroid PO 25 mcg 0600 LIAM Administration Potassium Chloride 40 meq 02/14/20 08:00 02/14/20 08:19 K-Dur PO 40 meq BID-WM LIAM Administration Prednisone 20 mg 02/14/20 08:00 02/14/20 08:20 Prednisone PO 20 mg QAM-WM LIAM Administration Saccharomyces Boulardii 250 mg 02/14/20 09:00 02/14/20 08:20 Florastor PO 250 mg DAILY LIAM Administration Sodium Chloride 10 ml 02/14/20 09:00 02/14/20 08:21 Flush - Normal Saline IVF 10 ml Q12HR LIAM Administration Sotalol HCl 80 mg 02/14/20 09:00 02/14/20 08:19 Betapace PO 80 mg BID LIAM Administration - Exam General Appearance: awake alert Eye: PERRL, anicteric sclera ENT: no oropharyngeal lesions, moist mucosa Neck: supple, no JVD Heart: RRR, no murmur Respiratory: no wheezes, no rales Gastrointestinal: soft, non-tender, non-distended, normal bowel sounds Extremities: no cyanosis, 1+ LE edema Neurological: cranial nerve grossly intact, no focal deficits Psychiatric: A&O x 3 Hosp A/P (1) Cellulitis of buttock Code(s): L03.317 - CELLULITIS OF BUTTOCK Status: Acute (2) History of CHF (congestive heart failure) Code(s): Z86.79 - PERSONAL HISTORY OF OTHER DISEASES OF THE CIRCULATORY SYSTEM Status: Chronic (3) Breast cancer Status: Chronic Qualifiers: Breast location: unspecified site of breast Estrogen receptor status: unspecified Patient sex: female Laterality: unspecified laterality Qualified Code(s): C50.919 - Malignant neoplasm of unspecified site of unspecified female breast (4) Hypothyroidism Code(s): E03.9 - HYPOTHYROIDISM, UNSPECIFIED Status: Chronic Qualifiers: Hypothyroidism type: unspecified Qualified Code(s): E03.9 - Hypothyroidism , unspecified (5) Morbid obesity Code(s): E66.01 - MORBID (SEVERE) OBESITY DUE TO EXCESS CALORIES Status: Chronic - Plan is on vanc and levaquin, wound care for buttock area b/l will need placement, can barely walk few steps at home, is morbidly obese on asp, coreg, sotalol, synthroid, lasix and letrozole for br cancer has not had f/u for her breast ca stage 4 per patient in a long time ( ) bmi is around 62 may transfer pt to medical floor
[2020-02-14] MEDS ORDERED: Vancomycin HCl 1.75 GM in Sodium Chloride 0.9% 500 ML IVPB SCH (22:00)
[2020-02-15] MEDS: Levothyroxine Sodium 25 MCG TAB PO SCH (05:59)
[2020-02-15] MEDS: Budesonide 0.5 MG/2 ML NEB NEB SCH ×2 (06:45→18:55)
[2020-02-15] MEDS: Carvedilol 3.125 MG TAB PO SCH (08:17)
[2020-02-15] MEDS: Potassium Chloride 20 MEQ TAB PO SCH ×2 (08:17→17:09)
[2020-02-15] MEDS: predniSONE 20 MG TAB PO SCH (08:18)
[2020-02-15] MEDS: Escitalopram Oxalate 10 mg Tablet PO SCH (08:18)
[2020-02-15] MEDS: Enoxaparin Sodium 40 MG/0.4 ML SYRINGE SC SCH (08:18)
[2020-02-15] MEDS: Aspirin 325 mg Enteric Coated Tablet PO SCH (08:18)
[2020-02-15] MEDS: Sotalol HCl 80 MG TAB PO SCH ×2 (08:18→20:24)
[2020-02-15] MEDS: Saccharomyces boulardii 250 MG CAP PO SCH (08:19)
--- NOTE | 2020-02-15 10:59 | PDOC.HOSPP ---
- Subjective Encounter Date: 02/15/20 Encounter Time: 07:15 Subjective: c/o sob, no fever, is on nasal canula has not ambulated or gotten up to a chair no sputum production - Objective Vital Signs & Weight: Vital Signs (12 hours) Temp Pulse Resp BP Pulse Ox 02/15/20 08:18 75 02/15/20 07:48 97.7 F 75 20 105/66 94 L 02/15/20 07:38 95 02/15/20 06:45 75 28 H 02/15/20 04:03 74 22 H 96 02/15/20 03:40 97.8 F 76 20 129/74 93 L 02/15/20 00:59 95 02/14/20 23:30 115 H 20 96 02/14/20 23:07 97.9 F 79 20 123/73 93 L Weight Admit Weight 376 lb 9.6 oz Weight 376 lb 9.6 oz I&O: 02/14/20 02/15/20 02/16/20 06:59 06:59 06:59 Intake Total 350 1180 Output Total 350 600 Balance 0 580 Result Diagrams: 02/14/20 03:27 02/14/20 03:27 Additional Labs: Accuchecks 02/15/20 02/14/20 02/14/20 05:42 20:29 16:48 POC Glucose 102 185 H 135 H Hospitalist ROS - Medication Medications: Active Medications Generic Name Dose Route Start Last Admin Trade Name Freq PRN Reason Stop Dose Admin Albuterol/Ipratropium 3 ml 02/14/20 01:46 02/15/20 06:45 Duoneb NEB 3 ml Q4H PRN Administration SOB &/or Wheezing Aspirin 325 mg 02/14/20 09:00 02/15/20 08:18 Ecotrin PO 325 mg DAILY LIAM Administration Budesonide 0.5 mg 02/14/20 06:30 02/15/20 06:45 Pulmicort Neb Solution NEB 0.5 mg BID-RT LIAM Administration Carvedilol 3.125 mg 02/14/20 08:00 02/15/20 08:17 Coreg PO 3.125 mg BID-WM LIAM Administration Enoxaparin Sodium 40 mg 02/14/20 09:00 02/15/20 08:18 Lovenox SC 40 mg 0900 LIAM Administration Escitalopram Oxalate 10 mg 02/14/20 09:00 02/15/20 08:18 Lexapro PO 10 mg DAILY LIAM Administration Famotidine 20 mg 02/14/20 09:00 02/14/20 08:20 Pepcid PO 20 mg DAILY LIAM Administration Levofloxacin 500 mg/ Device 100 mls @ 100 mls/hr 02/14/20 01:00 02/15/20 00: 43 IVPB 100 mls 0100 LIAM Administration Vancomycin HCl 1.75 gm/ Sodium 500 mls @ 250 mls/hr 02/14/20 22:00 02/14/20 21:02 Chloride IVPB 500 mls 2200 LIAM Administration Letrozole 2.5 mg 02/14/20 09:00 02/14/20 08:21 Femara PO 2.5 mg DAILY LIAM Administration Levothyroxine Sodium 25 mcg 02/14/20 06:00 02/15/20 05:59 Synthroid PO 25 mcg 0600 LIAM Administration Potassium Chloride 40 meq 02/14/20 08:00 02/15/20 08:17 K-Dur PO 40 meq BID-WM LIAM Administration Prednisone 20 mg 02/14/20 08:00 02/15/20 08:18 Prednisone PO 20 mg QAM-WM LIAM Administration Saccharomyces Boulardii 250 mg 02/14/20 09:00 02/15/20 08:19 Florastor PO 250 mg DAILY LIAM Administration Sodium Chloride 10 ml 02/14/20 09:00 02/15/20 08:21 Flush - Normal Saline IVF 10 ml Q12HR LIAM Administration Sotalol HCl 80 mg 02/14/20 09:00 02/15/20 08:18 Betapace PO 80 mg BID LIAM Administration - Exam General Appearance: awake alert Eye: PERRL, anicteric sclera ENT: no oropharyngeal lesions, moist mucosa Neck: supple, no JVD Heart: RRR, no murmur Respiratory: rhonchi Respiratory - other findings: decrease air entry left lung, coarse rales+ infrascapular area Gastrointestinal: soft, non-tender, normal bowel sounds Extremities: no cyanosis, 1+ LE edema Neurological: cranial nerve grossly intact, no focal deficits Psychiatric: normal affect, A&O x 3 Hosp A/P (1) Cellulitis of buttock Code(s): L03.317 - CELLULITIS OF BUTTOCK Status: Acute (2) History of CHF (congestive heart failure) Code(s): Z86.79 - PERSONAL HISTORY OF OTHER DISEASES OF THE CIRCULATORY SYSTEM Status: Chronic (3) Breast cancer Status: Chronic Qualifiers: Breast location: unspecified site of breast Estrogen receptor status: unspecified Patient sex: female Laterality: unspecified laterality Qualified Code(s): C50.919 - Malignant neoplasm of unspecified site of unspecified female breast (4) Hypothyroidism Code(s): E03.9 - HYPOTHYROIDISM, UNSPECIFIED Status: Chronic Qualifiers: Hypothyroidism type: unspecified Qualified Code(s): E03.9 - Hypothyroidism , unspecified (5) Morbid obesity Code(s): E66.01 - MORBID (SEVERE) OBESITY DUE TO EXCESS CALORIES Status: Chronic (6) PNA (pneumonia) Code(s): J18.9 - PNEUMONIA, UNSPECIFIED ORGANISM Status: Acute Qualifiers: Pneumonia type: due to unspecified organism Laterality: left Lung location: lower lobe of lung Qualified Code(s): J18.9 - Pneumonia, unspecified organism - Plan is on vanc and levaquin, wound care for buttock area b/l will obtain CT chest/abd and pelvis with contrast to confirm pna/mets in view of h/o breast ca stage 4 pt is dnar, discussed with her on 02/14/2020. will need placement, can barely walk few steps at home, is morbidly obese on asp, coreg, sotalol, synthroid, lasix and letrozole for br cancer has not had f/u for her breast ca stage 4 per patient in a long time ( ) bmi is around 62
[2020-02-15] MEDS ORDERED: Iopamidol-370 76% 500 ML 1 ML ONE (11:42)
[2020-02-15] MEDS: Letrozole 2.5 MG TAB PO SCH (11:57)
[2020-02-15] MEDS: Famotidine 20 MG TAB PO SCH (12:00)
[2020-02-15 12:18] LABS: #Eosinphils 0.1 thou/uL (0.0-0.7); #Lymphocytes 1.2 thou/uL (1.20-3.40); #Monocytes 0.5 thou/uL (0.11-0.59); #Neutrophils 7.9 thou/uL (1.40-6.50); %Eosinophils 0.7 % (0.0-10.0); %Lymphocytes 12.1 % (21.0-51.0); %Neutrophils 82.2 % (42.0-75.0); Hemoglobin 10.1 g/dL (12.0-16.0); Mean Corpuscular HGB CONC 30.7 g/dL (32.0-36.0); Mean Corpuscular Hemoglobin 28.4 pg (27.0-31.0); Mean Corpuscular Volume 92.5 fL (78.0-98.0); Mean Platelet Volume 7.4 fL (7.4-10.4); Platelet Count 185 thou/uL (130-400); RBC Distribution Width 15.9 % (11.5-14.5); Red Blood Cell (RBC) Count 3.55 mill/uL (4.20-5.40); White Blood Cell (WBC) Count 9.6 thou/uL (4.8-10.8)
[2020-02-15 12:29] LABS: BUN (Urea Nitrogen) 15 mg/dL (9.8-20.1); Calc. Creatinine Clearance 107 mL/min (70-130); Calcium 8.5 mg/dL (7.8-10.44); Estimated GFR-MDRD 41; Glucose 117 mg/dL (83-110)
[2020-02-15 12:30] LABS: ALT (SGPT) 17 U/L (8-55); AST (SGOT) 18 U/L (5-34); Alkaline Phosphatase 53 U/L (40-110); CRP (Inflammatory) 5.23 mg/dL (= or < 0.5)
[2020-02-15 12:40] LABS: Anion Gap 15 mmol/L (10-20); Carbon Dioxide 34 mmol/L (23-31); Chloride 98 mmol/L (98-107); Sodium 143 mmol/L (136-145)
[2020-02-15] MEDS: Furosemide 40 MG/4 ML VIAL SLOW IVP SCH (15:27)
--- NOTE | 2020-02-15 16:27 | CT ---
CT ANGIOGRAM CHEST: Date: 02-15-2020 Comparison: Noncontrast enhanced chest CT, 11-14-2019. History: Breast cancer, evaluate for pulmonary embolism. Technique: Axial CT imaging at 2.5 mm intervals through the chest with IV contrast using CT angiogram protocol. Coronal and sagittal 3D reformatted imaging obtained. FINDINGS: A right sided port-a-cath is present. No axillary lymphadenopathy is seen. There is a focal area of skin thickening and skin irregularity with subjacent mass density in the lef t breast consistent with the provided history of breast cancer. Coronary arterial calcification is noted. There is an abarant origin of the right subclavian artery. Mildly enlarged lymph node in the prevascular space is noted measuring 1.1 cm. This lymph node is sta ble when compared to chest CT performed 11-14-2019. No discrete hilar adenopathy is seen on this exam. There is a large left pleural effusion which extends from the left lung base through the left lung ap ex with associated near complete consolidation/collapse of the left lung. This left pleural effusion has increased significantly in size when compared to the 11-14-2019 examination and given the patient' s history of breast cancer, a malignant left pleural effusion is suspected. Alternatively, this could represent infection, a less likely possibility. The pulmonary arterial vasculature demonstrates no central filling defect. Distal pulmonary arterial branches on the left on not well assessed secondary to near complete left lung collapse. There is no convincing evidence for acute central pulmonary arterial embolism on this examination. There is inferior pleural thickening on the left within the left lung base with an adjacent area of m ass-like consolidative change within the inferior posterior aspect of the right lower lobe, similar w hen compared to 11-14-2019 examination, measuring approximately 4.1 cm in transverse dimension. Nonspe cific increased linear interstitial density noted within the right lower lobe. Review of the osseous structures demonstrates no discrete worrisome lytic or blastic bone lesion. There is a sclerotic lesion within the superior body of the sternum which is suspicious for osseous m etastatic disease. IMPRESSION: 1. No evidence for a central pulmonary arterial embolism. 2. Interval enlargement of left pleural effusion, now extending from apex through base with near comp lete consolidation/collapse of the left lung. Given history of breast cancer, this is concerning for a malignant effusion. 3. Mildly enlarged prevascular node on the left. 4. Persistent small pleural effusion with adjacent pleural thickening within the right lung base. Foc al area of pleural based mass-like opacity in the right base persists, mostly likely on the basis of chronic scar/volume loss/rounded atelectasis. 5. Sclerotic lesion within the sternum suspicious for metastatic disease. POS: [facility]
--- NOTE | 2020-02-15 16:30 | CT ---
CT OF ABDOMEN AND PELVIS: Date: 02-15-2020 Comparison: CT abdomen/pelvis, 08-31-17 History: Breast cancer Technique: Axial CT imaging at 5 mm intervals from lung bases through pubic symphysis with IV and ora l contrast. FINDINGS: There is a small right pleural effusion with nonspecific mild right basilar pleural thickening and a focal area of adjacent mass-like right lower lobe parenchymal opacity suggesting rounded atelectasis. There is an incompletely imaged left pleural effusion with left basilar pleural thickening. Coronary arterial calcification is noted. No free intraperitoneal air or fluid is seen. Calcified stones are noted within the gallbladder lumen. No discrete focal liver lesion is evident. The spleen, pancreas, adrenal glands, and kidneys demonstr ate no acute findings. The right kidney is small and demonstrates diffuse cortical thinning. There is a cyst and/or extrarenal pelvis on the left, unchanged when compared to CT abdomen/pelvis pe rformed 08-31-17. No evidence for bowel inflammatory change or bowel obstruction is noted. There is prominent degenerative change involving the right hip, stable. There is multilevel lower lumbar spine facet hypertrophic change and multilevel degenerative disc dis ease within the lumbar spine. Stable subcentimeter sclerotic focus noted within the L4 vertebral body. Multifocal atherosclerotic calcification of the abdominal aorta and its branches noted. Mildly prominent nonenlarged gastrohepatic ligament nodes are seen. No enlarged lymph nodes are seen within the retroperitoneum, the pelvis, or the mesentery. IMPRESSION: Chronic findings as detailed above. No evidence for free intraperitoneal air or small bowel obstructi on. Cholelithiasis noted. No discrete hepatic lesion. POS: [facility]
--- NOTE | 2020-02-15 17:10 | CON ---
DATE OF CONSULTATION: 02/15/2020 HISTORY OF PRESENT ILLNESS: Lety Chakraborty is a 74-year-old female who has life-threatening obesity. She also has stage IV breast cancer. She has a great deal of difficulty getting to the Oncology Clinic, so her treatment per my discussion with Dr. Ortiz in the past has been sporadic at best. She was admitted with breakdown on her bottom. It is felt that maybe she has a cellulitis. She is basically bed ridden at home. She does not ambulate. She has never been compliant with my attempts to get her to work with Physical Therapy when she is in the hospital, simply just sitting up in a chair. She had pulmonary workup in the past with pulmonary function tests, which showed a restrictive defect as expected with her abnormally large abdomen. Unfortunately , the test was done with her in the supine position because she was unable to sit on the side of the bed, so the testing actually is pretty worthless since there are no normal values for pulmonary function in supine patients. It has not been my feeling that she has any asthma. She does have a chronic left effusion. Her chest x- ray this admission is unchanged from past films. PAST MEDICAL HISTORY: Remarkable for: 1. Diabetes. 2. Breast cancer. 3. Hypertension. 4. Lipid disorder. 5. Hypothyroidism. 6. History of atrial fibrillation. 7. Diastolic heart failure. SOCIAL HISTORY: She is a nonsmoker and nondrinker. ALLERGIES: SHE REPORTS PENICILLIN ALLERGY. REVIEW OF SYSTEMS: 10 point review of systems completed, otherwise negative. FAMILY HISTORY: Negative for lung disease in early age. PHYSICAL EXAMINATION: GENERAL: Lety Chakraborty is a 74-year-old female who has life-threatening obesity VITAL SIGNS: She is afebrile, heart rate is in 70s, respiratory rates in the 20s, oximetry is 95% on 3 L cannula, and blood pressure 123/73. HEAD AND NECK: Unremarkable. LUNGS: Remarkable for decreased breath sounds at left base. HEART: Regular rhythm. ABDOMEN: Soft and massive. EXTREMITIES: With stasis changes. IMPRESSION: Metastatic breast cancer. From a pulmonary standpoint to me, she looks very similar to past admissions. I do think it is reasonable to rule out thromboembolic disease, although I always believe that deconditioning in a way with the major causes of her dyspnea when she presents to the hospital. I do not feel she has any asthma. There has been a note that she may have chronic obstructive pulmonary disease in the past related to smoke exposure, but I do not feel this is the case. We will obtain chest CT to a CT angiogram. An abdomen CT was already ordered by the hospitalist. We will re-evaluate her in the morning. This is a 50 minute consult, with greater than 50% of time spent on unit coordinating care. Job ID: [id number] MTDD
[2020-02-16] MEDS: Levothyroxine Sodium 25 MCG TAB PO SCH (05:24)
[2020-02-16] MEDS: Furosemide 40 MG/4 ML VIAL SLOW IVP SCH ×2 (05:24→13:42)
[2020-02-16] MEDS: Budesonide 0.5 MG/2 ML NEB NEB SCH ×2 (07:24→18:21)
[2020-02-16] MEDS: predniSONE 20 MG TAB PO SCH (08:31)
[2020-02-16] MEDS: Saccharomyces boulardii 250 MG CAP PO SCH (08:31)
[2020-02-16] MEDS: Famotidine 20 MG TAB PO SCH (08:31)
[2020-02-16] MEDS: Escitalopram Oxalate 10 mg Tablet PO SCH (08:31)
[2020-02-16] MEDS: Aspirin 325 mg Enteric Coated Tablet PO SCH (08:31)
[2020-02-16] MEDS: Potassium Chloride 20 MEQ TAB PO SCH ×2 (08:31→16:47)
[2020-02-16] MEDS: Sotalol HCl 80 MG TAB PO SCH ×2 (08:32→20:13)
[2020-02-16] MEDS: Letrozole 2.5 MG TAB PO SCH (08:32)
[2020-02-16] MEDS: Enoxaparin Sodium 40 MG/0.4 ML SYRINGE SC SCH (08:33)
--- NOTE | 2020-02-16 11:44 | PDOC.HOSPP ---
- Subjective Encounter Date: 02/16/20 Encounter Time: 08:15 Subjective: c/o sob, worse to lay down no sputum production yet, has dry cough and says it hurts to cough on her left chest. - Objective Vital Signs & Weight: Vital Signs (12 hours) Temp Pulse Resp BP BP BP Pulse Ox 02/16/20 11:14 94.4 F L 64 22 H 128/78 92 L 02/16/20 09:18 132/79 02/16/20 08:32 70 132/79 02/16/20 08:15 94 L 02/16/20 08:01 97.5 F L 70 16 132/79 94 L 02/16/20 07:26 70 22 H 02/16/20 04:10 97.6 F 74 18 120/68 96 02/16/20 01:15 97 02/16/20 01:12 68 18 97 Weight Admit Weight 376 lb 9.6 oz Weight 376 lb 9.6 oz I&O: 02/15/20 02/16/20 02/17/20 06:59 06:59 06:59 Intake Total 1180 1120 Output Total 600 1450 Balance 580 -330 Result Diagrams: 02/15/20 11:57 02/15/20 11:57 Additional Labs: Accuchecks 02/16/20 02/15/20 02/15/20 05:32 20:40 16:14 POC Glucose 102 134 H 133 H Hospitalist ROS - Medication Medications: Active Medications Generic Name Dose Route Start Last Admin Trade Name Freq PRN Reason Stop Dose Admin Albuterol/Ipratropium 3 ml 02/15/20 13:00 02/16/20 07:26 Duoneb NEB 3 ml [id number] LIAM Administration Albuterol/Ipratropium 3 ml 02/15/20 11:14 02/15/20 22:11 Duoneb NEB 3 ml [id number] PRN Administration SOB &/or Wheezing Aspirin 325 mg 02/14/20 09:00 02/16/20 08:31 Ecotrin PO 325 mg DAILY LIAM Administration Budesonide 0.5 mg 02/14/20 06:30 02/16/20 07:24 Pulmicort Neb Solution NEB 0.5 mg BID-RT LIAM Administration Enoxaparin Sodium 40 mg 02/14/20 09:00 02/16/20 08:33 Lovenox SC 40 mg 0900 LIAM Administration Escitalopram Oxalate 10 mg 02/14/20 09:00 02/16/20 08:31 Lexapro PO 10 mg DAILY LIAM Administration Famotidine 20 mg 02/14/20 09:00 02/16/20 08:31 Pepcid PO 20 mg DAILY LIAM Administration Furosemide 40 mg 02/15/20 14:00 02/16/20 05:24 Lasix SLOW IVP 40 mg 0600,1400 LIAM Administration Letrozole 2.5 mg 02/14/20 09:00 02/16/20 08:32 Femara PO 2.5 mg DAILY LIAM Administration Levothyroxine Sodium 25 mcg 02/14/20 06:00 02/16/20 05:24 Synthroid PO 25 mcg 0600 LIAM Administration Potassium Chloride 40 meq 02/14/20 08:00 02/16/20 08:31 K-Dur PO 40 meq BID-WM LIAM Administration Prednisone 20 mg 02/14/20 08:00 02/16/20 08:31 Prednisone PO 20 mg QAM-WM LIAM Administration Saccharomyces Boulardii 250 mg 02/14/20 09:00 02/16/20 08:31 Florastor PO Not Given DAILY LIAM Sodium Chloride 10 ml 02/14/20 09:00 02/16/20 08:33 Flush - Normal Saline IVF 10 ml Q12HR LIAM Administration Sotalol HCl 80 mg 02/14/20 09:00 02/16/20 08:32 Betapace PO 80 mg BID LIAM Administration - Exam General Appearance: awake alert Eye: PERRL, anicteric sclera ENT: no oropharyngeal lesions, moist mucosa Neck: supple, no JVD Heart: RRR, no murmur Respiratory: no wheezes, rhonchi Respiratory - other findings: decreased air entry left side Gastrointestinal: soft, non-tender, non-distended, normal bowel sounds Extremities: no cyanosis, 1+ LE edema Neurological: cranial nerve grossly intact, no focal deficits Psychiatric: normal affect, A&O x 3 Hosp A/P (1) Cellulitis of buttock Code(s): L03.317 - CELLULITIS OF BUTTOCK Status: Acute (2) History of CHF (congestive heart failure) Code(s): Z86.79 - PERSONAL HISTORY OF OTHER DISEASES OF THE CIRCULATORY SYSTEM Status: Chronic (3) Breast cancer Status: Chronic Qualifiers: Breast location: unspecified site of breast Estrogen receptor status: unspecified Patient sex: female Laterality: unspecified laterality Qualified Code(s): C50.919 - Malignant neoplasm of unspecified site of unspecified female breast (4) Hypothyroidism Code(s): E03.9 - HYPOTHYROIDISM, UNSPECIFIED Status: Chronic Qualifiers: Hypothyroidism type: unspecified Qualified Code(s): E03.9 - Hypothyroidism , unspecified (5) Morbid obesity Code(s): E66.01 - MORBID (SEVERE) OBESITY DUE TO EXCESS CALORIES Status: Chronic (6) PNA (pneumonia) Code(s): J18.9 - PNEUMONIA, UNSPECIFIED ORGANISM Status: Acute Qualifiers: Pneumonia type: due to unspecified organism Laterality: left Lung location: lower lobe of lung Qualified Code(s): J18.9 - Pneumonia, unspecified organism (7) Pleural effusion, left Code(s): J90 - PLEURAL EFFUSION, NOT ELSEWHERE CLASSIFIED Status: Acute - Plan is on vanc and levaquin, wound care for buttock area b/l CT results noted, d/w , he will talk to as well pt is dnar, discussed with her on 02/14/2020. will need placement, can barely walk few steps at home, is morbidly obese on asp, coreg, sotalol, synthroid, lasix and letrozole for br cancer has not had f/u for her breast ca stage 4 per patient in a long time ( ) bmi is around 62 prognosis guarded
--- NOTE | 2020-02-16 11:58 | PRG ---
DATE OF SERVICE: 02/16/2020 Lety Chakraborty was discussed with Dr. Islas and Dr. Ortiz today. There are no good therapeutic options for her with her pleural effusion. catheter is not an option for 2 reasons. Number 1, her size; number 2, her inability to care for it. The other issue at hand is that she has been unable to adequately continue with treatment for her breast cancer in the office. It is probably appropriate per my discussion with Dr. Ortiz. Consider home with hospice and comfort measures. Job ID: [id number] MTDD
--- NOTE | 2020-02-16 20:31 | PQF ---
DATE: 02-16-20 ATTN: DR. NORIS JEAN Please exercise your independent, professional judgment in responding to the clarification form. Clinical indicators are provided on the bottom of this form for your review Please check appropriate box(s): HEART FAILURE: A. ACUITY [ ] Acute [ ] Acute on Chronic [ x ] Chronic B. TYPE [ ] Systolic / HFrEF [ x ] Diastolic / HFpEF [ ] Combined Systolic / Diastolic [ ] Other diagnosis there is no exacerbation during this admission [ ] Unable to determine In addition, please specify: Present on Admission (POA): [ ] Yes [ ] No [ ] Unable to determine For continuity of documentation, please document condition throughout progress notes and discharge summary. Thank You. CLINICAL INDICATORS - SIGNS / SYMPTOMS / LABS / RESULTS AND LOCATION IN EMR: H&P 02-13-20: CELLULITIS, ACUTE ON CHRONIC DIASTOLIC HEART FAILURE. WE WILL GIVE HER A DOSE OF LASIX AND CONTINUE HER HOME MEDICATIONS. PN DR. DU 02-16-20: CELLULITIS OF BUTTOCK, HX OF CHF, BREAST CA, MORNIB OBESITY, ACUTE PNEUMONIA, ACUTE L PLEURAL EFFUSION BNP: 02-15-20: 194.2 RISKS FACTORS / RESULTS AND LOCATION IN EMR: H&P 02-13-20: HX OF HTN, DM 2, HYPERCHOLESTEROLEMIA, A FIB, CHRONIC DIASTOLIC HEART FAILURE TREATMENTS / RESULTS AND LOCATION IN EMR: MAR: 02-15-20: LASIX IV, 02-14-20: COREG (This form is maintained as a part of the permanent medical record) 2014 [employer]. All Rights Reserved PEDRITO [email or web address] [facility]
[2020-02-17] MEDS: Lorazepam 2 MG/ML VIAL SLOW IVP PRN ×2 (04:33→04:34)
[2020-02-17] MEDS: Levothyroxine Sodium 25 MCG TAB PO SCH (05:53)
[2020-02-17] MEDS: Furosemide 40 MG/4 ML VIAL SLOW IVP SCH ×2 (05:53→13:17)
[2020-02-17] MEDS: Budesonide 0.5 MG/2 ML NEB NEB SCH (07:25)
[2020-02-17] MEDS: Sotalol HCl 80 MG TAB PO SCH (09:03)
[2020-02-17] MEDS: Aspirin 325 mg Enteric Coated Tablet PO SCH (09:03)
[2020-02-17] MEDS: Letrozole 2.5 MG TAB PO SCH (09:03)
[2020-02-17] MEDS: Escitalopram Oxalate 10 mg Tablet PO SCH (09:03)
[2020-02-17] MEDS: Saccharomyces boulardii 250 MG CAP PO SCH (09:03)
[2020-02-17] MEDS: Famotidine 20 MG TAB PO SCH (09:04)
[2020-02-17] MEDS: predniSONE 20 MG TAB PO SCH (09:04)
[2020-02-17] MEDS: Enoxaparin Sodium 40 MG/0.4 ML SYRINGE SC SCH (09:04)
[2020-02-17] MEDS: Potassium Chloride 20 MEQ TAB PO SCH ×2 (09:04→16:13)
[2020-02-17 11:15] VITALS: BP 120/71; TEMP 98.1
--- NOTE | 2020-02-17 13:53 | PDOC.HOSPP ---
- Subjective Encounter Date: 02/17/20 Encounter Time: 07:00 Subjective: has sob, lethargic and is speaking in husky voice no c/o sore throat - Objective Vital Signs & Weight: Vital Signs (12 hours) Temp Pulse Resp BP BP Pulse Ox Pulse Ox 02/17/20 13:38 60 22 L 02/17/20 11:28 90 L 02/17/20 11:15 98.1 F 60 18 120/71 92 L 02/17/20 09:03 71 114/75 02/17/20 07:25 71 20 96 02/17/20 07:24 71 20 96 02/17/20 07:23 98.7 F 71 20 114/75 97 02/17/20 03:31 97.1 F L 68 16 133/86 92 L 02/17/20 02:42 70 22 H 96 Weight Admit Weight 376 lb 9.6 oz Weight 376 lb 9.6 oz I&O: 02/16/20 02/17/20 02/18/20 06:59 06:59 06:59 Intake Total 1120 710 Output Total 1450 1450 Balance -330 -740 Result Diagrams: 02/15/20 11:57 02/15/20 11:57 Additional Labs: Accuchecks 02/17/20 02/16/20 02/16/20 05:28 20:58 16:54 POC Glucose 110 123 H 115 H Hospitalist ROS - Medication Medications: Active Medications Generic Name Dose Route Start Last Admin Trade Name Freq PRN Reason Stop Dose Admin Albuterol/Ipratropium 3 ml 02/15/20 13:00 02/17/20 13:38 Duoneb NEB 3 ml [id number] LIAM Administration Albuterol/Ipratropium 3 ml 02/15/20 11:14 02/17/20 02:42 Duoneb NEB 3 ml [id number] PRN Administration SOB &/or Wheezing Aspirin 325 mg 02/14/20 09:00 02/17/20 09:03 Ecotrin PO Not Given DAILY LIAM Budesonide 0.5 mg 02/14/20 06:30 02/17/20 07:25 Pulmicort Neb Solution NEB 0.5 mg BID-RT LIAM Administration Enoxaparin Sodium 40 mg 02/14/20 09:00 02/17/20 09:04 Lovenox SC 40 mg 0900 LIAM Administration Escitalopram Oxalate 10 mg 02/14/20 09:00 02/17/20 09:03 Lexapro PO Not Given DAILY LIAM Famotidine 20 mg 02/14/20 09:00 02/17/20 09:04 Pepcid PO Not Given DAILY LIAM Furosemide 40 mg 02/15/20 14:00 02/17/20 13:17 Lasix SLOW IVP 40 mg 0600,1400 LIAM Administration Letrozole 2.5 mg 02/14/20 09:00 02/17/20 09:03 Femara PO Not Given DAILY LIAM Levofloxacin 500 mg 02/16/20 21:00 02/16/20 20:12 Levaquin PO 500 mg 2100 LIAM Administration Levothyroxine Sodium 25 mcg 02/14/20 06:00 02/17/20 05:53 Synthroid PO 25 mcg 0600 LIAM Administration Lorazepam 0.5 mg 02/17/20 04:20 02/17/20 04:34 Ativan SLOW IVP 0.5 mg Q6H PRN Administration Anxiety/Agitation Potassium Chloride 40 meq 02/14/20 08:00 02/17/20 09:04 K-Dur PO Not Given BID-WM [facility] Prednisone 20 mg 02/14/20 08:00 02/17/20 09:04 Prednisone PO Not Given QAM-WM [facility] Saccharomyces Boulardii 250 mg 02/14/20 09:00 02/17/20 09:03 Florastor PO Not Given DAILY [facility] Sodium Chloride 10 ml 02/14/20 09:00 02/17/20 09:13 Flush - Normal Saline IVF 10 ml Q12HR LIAM Administration Sotalol HCl 80 mg 02/14/20 09:00 02/17/20 09:03 Betapace PO Not Given BID [facility] - Exam General Appearance: awake alert Eye: PERRL, anicteric sclera ENT: no oropharyngeal lesions, moist mucosa Neck: supple, symmetric Heart: RRR, no murmur Respiratory: no wheezes, no rales Respiratory - other findings: decreased air entry left chest Gastrointestinal: soft, non-tender, normal bowel sounds Extremities: no cyanosis, 1+ LE edema Neurological: cranial nerve grossly intact, no focal deficits Hosp A/P (1) Cellulitis of buttock Code(s): L03.317 - CELLULITIS OF BUTTOCK Status: Acute (2) History of CHF (congestive heart failure) Code(s): Z86.79 - PERSONAL HISTORY OF OTHER DISEASES OF THE CIRCULATORY SYSTEM Status: Chronic (3) Breast cancer Status: Chronic Qualifiers: Breast location: unspecified site of breast Estrogen receptor status: unspecified Patient sex: female Laterality: unspecified laterality Qualified Code(s): C50.919 - Malignant neoplasm of unspecified site of unspecified female breast (4) Hypothyroidism Code(s): E03.9 - HYPOTHYROIDISM, UNSPECIFIED Status: Chronic Qualifiers: Hypothyroidism type: unspecified Qualified Code(s): E03.9 - Hypothyroidism , unspecified (5) Morbid obesity Code(s): E66.01 - MORBID (SEVERE) OBESITY DUE TO EXCESS CALORIES Status: Chronic (6) PNA (pneumonia) Code(s): J18.9 - PNEUMONIA, UNSPECIFIED ORGANISM Status: Acute Qualifiers: Pneumonia type: due to unspecified organism Laterality: left Lung location: lower lobe of lung Qualified Code(s): J18.9 - Pneumonia, unspecified organism (7) Pleural effusion, left Code(s): J90 - PLEURAL EFFUSION, NOT ELSEWHERE CLASSIFIED Status: Acute - Plan is on vanc and levaquin, wound care for buttock area b/l CT results noted, d/w , he will talk to . pt is dnar, discussed with her on 02/14/2020. will need placement, can barely walk few steps at home, is morbidly obese on asp, coreg, sotalol, synthroid, lasix and letrozole for br cancer has not had f/u for her breast ca stage 4 per patient in a long time ( ) bmi is around 62 prognosis guarded, palliative care consultation for possible hospice if cleared by Onc?
--- NOTE | 2020-02-17 15:04 | PDOC.MOPN ---
Interval History: obtunded, labored respirations. - Vital Signs Vital Signs: Vital Signs (12 hours) Temp Pulse Resp BP BP Pulse Ox Pulse Ox 02/17/20 13:38 60 22 L 02/17/20 11:28 90 L 02/17/20 11:15 98.1 F 60 18 120/71 92 L 02/17/20 09:03 71 114/75 02/17/20 07:25 71 20 96 02/17/20 07:24 71 20 96 02/17/20 07:23 98.7 F 71 20 114/75 97 02/17/20 03:31 97.1 F L 68 16 133/86 92 L Weight Admit Weight 376 lb 9.6 oz Weight 376 lb 9.6 oz - Physical Exam General: Mild distress Lungs: Other Neurological: Other (obtunded) - Labs Result Diagrams: 02/15/20 11:57 02/15/20 11:57 Lab results: Laboratory Results - last 24 hr 02/17/20 05:28: POC Glucose 110 02/16/20 20:58: POC Glucose 123 H 02/16/20 16:54: POC Glucose 115 H Status: lab reviewed by me A/P - Problem (1) Pleural effusion, left Current Visit: Yes Code(s): J90 - PLEURAL EFFUSION, NOT ELSEWHERE CLASSIFIED Status: Acute (2) Acute respiratory failure with hypoxia Current Visit: No Code(s): J96.01 - ACUTE RESPIRATORY FAILURE WITH HYPOXIA Status: Acute (3) Breast cancer Current Visit: No Status: Chronic Qualifiers: Breast location: unspecified site of breast Estrogen receptor status: unspecified Patient sex: female Laterality: unspecified laterality Qualified Code(s): C50.919 - Malignant neoplasm of unspecified site of unspecified female breast - Plan Plan: 1. 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 2. Small to moderate left pleural effusion on scan in Nov 2019, now progressed with large left pleural effusion. 3. Morbid obesity, wheelchair and homebound 4. History of noncompliance secondary to transportation and immobility 5. Discussed with Dr. Ortiz, Dr. Neff, and Dr. Islas. Unable to have thoracentesis due to body habitus, poor candidate for treatment. 6. Agree with comfort care and hospice.
[2020-02-17] MEDS ORDERED: Morphine 2 MG/ML SYRINGE SLOW IVP PRN (17:40)
--- NOTE | 2020-02-18 10:18 | PQF ---
DATE: 02-18-20 ATTN: DR. NORIS DU Please exercise your independent, professional judgment in responding to the clarification form. Clinical indicators are provided on the bottom of this form for your review Please check appropriate box(s): [ ] VT, Please specify type: [ ] Demand Ischemia [ x ] Insignificant Lab Values [ ] Other diagnosis [ ] Unable to determine In addition, please specify: Present on Admission (POA): [ x ] Yes [ ] No [ ] Unable to determine For continuity of documentation, please document condition throughout progress notes and discharge summary. Thank You. CLINICAL INDICATORS - SIGNS / SYMPTOMS/ LABS are present in the medical record: TROPONIN: 02-13-20: 0.050 0.073 0.136 H&P 02-13-20: HX DM2, HTN, CHRONIC DIASTOLIC HEART FAILURE, HYPERCHOLESTEROLEMIA, HYPOTHYROIDISM, ATRIAL FIBRILLATION RISK FACTORS : H&P 02-13-20: HX DM2, HTN, CHRONIC DIASTOLIC HEART FAILURE, HYPERCHOLESTEROLEMIA, HYPOTHYROIDISM, ATRIAL FIBRILLATION TREATMENT: SERIES OF LABS: SERIAL TROPONINS (This form is maintained as a part of the permanent medical record) 2014 [employer], [employer]. All Rights Reserved [email or web address] [email or web address] Cell [facility]ITALMagdal[facility]
--- NOTE | 2020-02-18 11:02 | PQF ---
DATE: 02-18-20 ATTN: DR. NORIS DU Please exercise your independent, professional judgment in responding to the clarification form. Clinical indicators are provided on the bottom of this form for your review Please check appropriate box(s): [ x ] Acute Renal Failure/ERICA [ ] Insignificant Lab Values [ ] Other diagnosis [ ] Unable to determine In addition, please specify: Present on Admission (POA): [ x ] Yes [ ] No [ ] Unable to determine National Kidney Foundation Guidelines for CKD Staging Stage I Kidney damage with normal or increased GFR GFR > 90 Stage II Kidney damage with mildly decreased GFR GFR 60-89 Stage III Kidney damage with moderately decreased GFR GFR 30-59 Stage IV Kidney damage with severely decreased GFR GFR 16-29 Stage V Kidney failure GFR<15 ESRD End Stage Renal Disease On dialysis Acute Renal Failure/Acute Kidney Failure defined as: Increases in SCr by (>) 0.3 mg/dl within 48 hours OR- Increases in SCr by (>) 1.5 times baseline, known or presumed to have occurred within the prior 7 days OR- Urine volume < 0.5 ml/kg/hour for 6 hours (KDIGO supplement 2012 for RIFLE/CRISPIN criteria) For continuity of documentation, please document condition throughout progress notes and discharge summary. Thank You. CLINICAL INDICATORS - SIGNS / SYMPTOMS / LABS / RESULTS AND LOCATION IN MR: GFR: 02-13-20: 35 02-14-20 40 02-15-20: 41 CREATININE: 02-13-20: 1.45 02-14-20: 1.31 02-15-20: 1.28 BUN: 02-13-20: 20 02-14-20: 18 02-15-20: 15 H&P 02-13-20: HX HTN, CHRONIC DIASTOLIC HEART FAILURE, BREAST CANCER STAGE 4 , DM 2, ATRIAL FIB RISK FACTORS / RESULTS AND LOCATION IN MR: H&P 02-13-20: HX HTN, CHRONIC DIASTOLIC HEART FAILURE, BREAST CANCER STAGE 4 , DM 2, ATRIAL FIB TREATMENTS / RESULTS AND LOCATION IN MR: MONITORING LABS 02-13-20 TO 02-15-20 MAR: 02-14-20: MITA YANG (This form is maintained as a part of the permanent medical record) 2014 [employer], [employer]. All Rights Reserved [email or web address] [email or web address] Cell [facility]ITAL[facility]dal[facility]
--- NOTE | 2020-02-18 12:30 | DIS ---
DATE OF ADMISSION: 02/13/2020 DATE OF DISCHARGE: 02/17/2020 DATE OF : 02/17/2020 at 1850 hours. PRIMARY CAUSE OF : 1. Acute respiratory failure with hypoxia from 4 days. 2. Left breast cancer stage IV with malignant pleural effusion. SECONDARY CAUSE OF : Morbid obesity with BMI of 60, history of congestive heart failure with diastolic dysfunction, diabetes mellitus type 2, hypertension , paroxysmal atrial fibrillation, and hypothyroidism. BRIEF COURSE DURING HOSPITALIZATION: The patient initially came to the ER as she was bleeding from her buttock area. She had a change in her chair and the new chair was rubbing on her thighs and her buttock area, which caused bleeding. Her initial x-ray revealed left pleural effusion with atelectasis. The patient had history of left breast cancer, which was stage IV. She had had poor followups with her oncologist due to transportation issues. She had known history of estrogen receptor positive adenocarcinoma of left breast with prior malignant right pleural effusion and now massive left pleural effusion. She had had thoracentesis done in [place] with confirmation of malignant pleural effusion on the right side in the past. The patient had acute respiratory failure with hypoxia due to massive effusion and morbid obesity with BMI of around 60. Ms. Chakraborty had very poor functional status and was barely mobilizing into a chair at most prior to arrival. She did not want to be resuscitated. The patient had declining saturations despite being placed on non-rebreather mask. She was not a candidate for thoracentesis due to body habitus. She had had consultation with Dr. Neff for Pulmonology. Her children both Ms. Palmer Ulloa, daughter and son, Mr. Palmer Pate were informed on the around 1:30 p.m. that their mom was declining rapidly. Both children managed to arrive prior to her demise. The patient was placed on comfort care after discussing her situation with both children. She breathed her last around 1850 hours. Body will be released to family and home per hospital protocol. Job ID: [id number] [facility]
--- NOTE | 2020-02-21 09:11 | EKG ---
Test Reason : SOB Blood Pressure : / mmHG Vent. Rate : 105 BPM Atrial Rate : 105 BPM P-R Int : 000 ms QRS Dur : 098 ms QT Int : 360 ms P-R-T Axes : 032 -21 051 degrees QTc Int : 475 ms Undetermined rhythm Incomplete right bundle branch block Left ventricular hypertrophy with repolarization abnormality Abnormal ECG Confirmed by DEONDRE SOLOMON DO ([id number]), science editor CRISTINA BARBA ([id number]) on 02/21/2020 9:11:14 AM Referred By: NEHA Confirmed By:DEONDRE SOLOMON DO
--- NOTE | 2020-03-03 07:48 | PQF ---
CARLOS SAENZ VINAYA KUMAR MD [id number] CLINICAL DOCUMENTATION CLARIFICATION FORM: POST DISCHARGE Addendum to original discharge summary date: ____ Late entry note date: __ DATE:03/03/2020 ATTN: NORIS DU MD Please exercise your independent, professional judgment in responding to the clarification form. Clinical indicators are provided on the bottom of this form for your review Please check appropriate box(s): __x I (concur) with the Wound Care findings as stated below. [ ] Pressure Ulcer: (Stage I: Erythema; Stage II: Partial thickness; Stage III : Full thickness; Stage IV: Necrosis to muscle/bone) [ ] Location: POA: [ ] Yes [ ] No[ ] Unable to determine Stage (I to IV): (Left Right Bilateral N/A ) [ ] Location: POA: [ ] Yes [ ] No[ ] Unable to determine Stage (I to IV): (Left Right Bilateral N/A ) [ ] Location: POA: [ ] Yes [ ] No[ ] Unable to determine Stage (I to IV): (Left Right Bilateral N/A ) [ ] Gangrene present [ ] Yes [ ] ischemic gangrene [ ] gas gangrene [ ] No [ ] No pressure ulcer diagnosis [ ] Deep tissue injury [ ] Other diagnosis [ ] Unable to determine In addition, please specify: Present on Admission (POA): [ x ] Yes [ ] No [ ] Unable to determine For continuity of documentation, please document condition throughout progress notes and discharge summary. Thank You. CLINICAL INDICATORS - SIGNS / SYMPTOMS / LABS - Skin: Pt has many (>10) areas of skin breakdown on her b/l upper thighs, more on the left than right- ED record, 02/12, Bita Newman DO - There are 2 of them which have had bleeding from veins which have ruptured in two of the areas of breakdown- ED record, 02/12, Bita Newman DO - There is also a significant surrounding erythema and induration and tenderness - ED record, 02/12, Bita Newman DO - Presents w/ bleeding from LLE, likely as a result of a friction decubitus ulcer- H&P, 02/12,Kian Hooper MD - PU Right posterior thigh stage 3- Wound care Assessment on 02/14 - PU Left posterior thigh stage 3- Wound care Assessment on 02/14 RISK FACTORS: - Morbid obese- H&P, 02/12, Kian Hooper MD - Cellulitis of Buttock- 02/15, NORIS DU MD TREATMENTS: - Piperacillin.IV-JAN, 02/12 - Vancomycin.IV-JAN, 02/12 (This form is maintained as a part of the permanent medical record) 2014 [employer] All Rights Reserved [email or web address]
== END 2020-02-17 21:00 | disposition expired | DRG 180 ==
LOC: ERS 16:00 → 2NO 18:57 → SURG A 02-14 17:36
PROVIDERS: ADMIT Internal Medicine; ATTEND Internal Medicine
DX: C78.2 Secondary malignant neoplasm of pleura (principal); L89.893 Pressure ulcer of other site, stage 3; J96.01 Acute respiratory failure with hypoxia; J18.9 Pneumonia, unspecified organism; L03.317 Cellulitis of buttock; I50.32 Chronic diastolic (congestive) heart failure; Z68.44 Body mass index [BMI] 60.0-69.9, adult; N17.9 Acute kidney failure, unspecified; J98.11 Atelectasis; J91.0 Malignant pleural effusion; C50.912 Malignant neoplasm of unspecified site of left female breast; E66.01 Morbid (severe) obesity due to excess calories; E11.9 Type 2 diabetes mellitus without complications; I48.0 Paroxysmal atrial fibrillation; F41.9 Anxiety disorder, unspecified; F32.9 Major depressive disorder, single episode, unspecified; E78.00 Pure hypercholesterolemia, unspecified; E03.9 Hypothyroidism, unspecified; I11.0 Hypertensive heart disease with heart failure; E78.5 Hyperlipidemia, unspecified; Z79.01 Long term (current) use of anticoagulants; Z79.4 Long term (current) use of insulin; Z88.0 Allergy status to penicillin; Z99.81 Dependence on supplemental oxygen; Z80.0 Family history of malignant neoplasm of digestive organs; Z92.21 Personal history of antineoplastic chemotherapy; Z92.3 Personal history of irradiation
CPT/HCPCS: 36415; 36416; 71045; 71275; 74177; 80048; 80053; 82550; 82553; 82728; 83605; 83880; 84145; 84484; 85025; 86140; 87040; 87086; 93005; 94640; 96365; J1650; J1940; J1956; J2060; J2543; J3370; J7030; J7512; J7620; J7626; Q9967